=== PATIENT | male | born 1970 | race Caucasian/White ===

== ENCOUNTER 2017-03-05 18:13 | Inpatient (IN) | payer MEDICAID, OTHER ==
[~2017-03-05] VITALS: Ht 170.2 cm; Wt 122.3 kg
[2017-03-05] MEDS ORDERED: CLON0.2T5 PO (20:09)
[2017-03-05] MEDS ORDERED: LABE200T25 PO (20:10)
[2017-03-05] MEDS ORDERED: ZOLP10TA PO (20:10)
[2017-03-05] MEDS ORDERED: ONDANSETRON 4 MG INJ IV STA (20:19)
[2017-03-05] MEDS ORDERED: morphine 2 MG INJ IV STA (20:19)
[2017-03-05] MEDS ORDERED: SOD CHLORIDE 0.9% 1,000 ML IV STA (20:19)
[2017-03-05 20:34] LABS: BASOPHILS % 0.5 % (0.0-2.0); EOSINOPHILS # 0.3 10^3/ul (0.0-0.5); EOSINOPHILS % 3.8 % (0.0-7.0); HEMATOCRIT 36.5 % (42.0-52.0); HEMOGLOBIN 12.8 g/dl (14.0-18.0); LYMPHOCYTES # 1.4 10^3/ul (0.8-2.9); LYMPHOCYTES % 16.4 % (15.0-51.0); MEAN CORPUSCULAR HEMOGLOBIN 31.4 pg (29.0-33.0); MEAN CORPUSCULAR HGB CONC 35.1 g/dl (32.0-37.0); MEAN CORPUSCULAR VOLUME 89.7 fl (82.0-101.0); MEAN PLATELET VOLUME 8.7 fl (7.4-10.4); MONOCYTES % 12.1 % (0.0-11.0); NEUTROPHILS % 66.7 % (39.0-77.0); PLATELET COUNT 382 10^3/UL (140-415); RED BLOOD COUNT 4.07 10^6/ul (4.70-6.10); RED CELL DISTRIBUTION WIDTH 13.2 % (11.5-14.5); WHITE BLOOD COUNT 8.3 10^3/ul (4.8-10.8)
[2017-03-05 20:48] LABS: ADD UMIC YES; UR ASCORBIC ACID 40 mg/dL (NEGATIVE); UR BILIRUBIN (Dip) NEGATIVE (NEGATIVE); UR BLOOD (Dip) 3+ mg/dL (NEGATIVE); UR CLARITY CLOUDY (CLEAR); UR COLOR RED (YELLOW); UR GLUCOSE (Dip) 1+ mg/dL (NEGATIVE); UR KETONES (Dip) NEGATIVE (NEGATIVE); UR LEUKOCYTE ESTERASE (Dip) NEGATIVE Leu/ul (NEGATIVE); UR NITRITE (Dip) NEGATIVE (NEGATIVE); UR RBC > 182 /HPF (0-5); UR SPECIFIC GRAVITY (Dip) 1.018 (1.003-1.030); UR SQUAMOUS EPITHELIAL CELL FEW /HPF (FEW); UR TOTAL PROTEIN (Dip) 3+ mg/dl (NEGATIVE); UR UROBILINOGEN (Dip) NEGATIVE (NEGATIVE)
[2017-03-05] MEDS ORDERED: morphine 4 MG/ML VIAL IV STA (21:08)
[2017-03-05 21:10] LABS: ALBUMIN 4.5 g/dl (3.3-4.9); ALBUMIN/GLOBULIN RATIO 1.55; BILIRUBIN,INDIRECT 0.2 mg/dl (0-1.1); BILIRUBIN,TOTAL 0.2 mg/dl (0.2-1.3); CALCIUM 11.1 mg/dl (8.4-10.2); CREATININE 1.76 mg/dl (0.61-1.24); POTASSIUM 3.4 mmol/L (3.5-5.1); TOTAL PROTEIN 7.4 g/dl (6.1-8.1)
--- NOTE | 2017-03-05 21:20 | RADRPT ---
AMENDMENT: 03/23/2017 10:41:01 PM Candy Jeffrey M.D One or more of the following dose reduction techniques were used: - Automated exposure control. - Adjustment of the mA and/or kV according to patient size. - Use of iterative reconstruction technique. PROCEDURE: CT ABDOMEN AND PELVIS WITHOUT CONTRAST: CLINICAL INDICATION: 48-year of age, male , right flank pain. Rule out stone.. COMPARISON: None TECHNIQUE: CT of the abdomen and pelvis was performed without intravenous contrast. Oral contrast wa s not administered prior to the examination. Coronal and sagittal reformatted images were obtained from the axial source images. Images were revi ewed on a high-resolution PACS workstation. Dose information: Based on a 32 cm phantom, the estimated radiation dose (CTDI vol mGy) for each ser ies in this exam is 24 . The estimated cumulative dose (DLP mGy-cm) is 1520 . FINDINGS: In the absence of intravenous contrast, the study constitutes a limited assessment of the solid orga ns and vessels. LUNG BASES: 0.4 cm right middle lobe pulmonary nodule (3/4). Bilateral dependent atelectasis. ABDOMEN/PELVIS: Liver: Normal. Gallbladder: Normal. Bile ducts: No intrahepatic or extrahepatic biliary duct dilatation. Spleen: Normal. Pancreas: Normal. Adrenal glands: 1.5 cm right adrenal nodule with a noncontrast attenuation coefficient of 11 HU. Le ft adrenal gland is normal. Kidneys and ureters: Negative for urinary calculi or hydronephrosis. Bilateral renal parenchymal hyp odensities that are larger and more numerous on the left cannot be characterized without intravenous contrast but likely represent cysts. Kidneys are normal size. Aorta and IVC: Atherosclerosis aorta and iliac vessels. No aneurysm. Lymph nodes: Normal. Gastrointestinal tract: Normal. Appendix: Non-inflamed appendix right lower quadrant. Bladder: Urinary bladder is partially filled with circumferential wall thickening but without edema in the surrounding fat. Negative for bladder calculi. Pelvic Organs: Coarse calcifications central prostate gland. Seminal vesicles are symmetrical. Peritoneal cavity: No free fluid or free intraperitoneal air. Abdominal wall: 1.8 cm cystic structure immediately deep to the umbilicus within the abdominal cavit y may represent a urachal cyst without complications (3/114). Bilateral gynecomastia. BONES: Musculoskeletal: Mild degenerative changes in spine. Well corticated ossicle overlying left facet in the lower lumbar spine is unrelated to acute trauma. Bone exostosis right iliac wing may be due to remote trauma or could represent a benign osteochondroma (601/95). Degenerative changes No suspiciou s bone lesions. IMPRESSION: Negative for urinary calculi or hydronephrosis. Cause for right flank pain is not evident. Nonspecific bladder wall thickening. This could be due to bladder wall hypertrophy or incomplete di stension. Correlate with urinalysis to rule out cystitis. 1.5 cm nodule right adrenal gland. In the absence of a known primary neoplasm, this is statisticall y benign. Recommend correlation with endocrine studies to evaluate for a functioning adenoma or phe ochromocytoma and consider follow-up adrenal gland CT in 12 months or correlation with previous imag ing. 1.8 cm cystic structure deep to the umbilicus likely represents a urachal cyst without evidence of c omplications. 0.4 cm right pulmonary nodule. In the absence of risk factors, no further imaging is required per 2 017 Fleischner Society guidelines. In a high risk patient, follow-up low-dose chest CT at 12 months is optional. Alternatively, recommend correlation with previous imaging. RPTAT: HCTS Physician Marce Date Time Electronically viewed and signed by Physician Marce on 03/23/2017 22:42 CS/
[2017-03-05 21:21] LABS: TROPONIN-I 0.022 ng/ml (0.00-0.12)
[2017-03-05] MEDS ORDERED: LABETALOL HCL 20MG INJ IV ONE ×2 (21:30→23:30)
[2017-03-05] MEDS ORDERED: CEFTRIAXONE 1 GM/50 ML (PMX) 50 ML IVPB ONE (21:30)
[2017-03-05] MEDS ORDERED: DIPHENHYDRAMINE 50 MG INJ IV ONE (21:30)
[2017-03-05] MEDS ORDERED: ACETAMINOPHEN 325 MG TAB PO PRN (22:30)
[2017-03-05] MEDS ORDERED: ONDANSETRON 4 MG INJ IV PRN (22:30)
[2017-03-05] MEDS ORDERED: FENTAnyl 50 MCG/ML VIAL IV ONE (22:30)
--- NOTE | 2017-03-05 23:00 | ERA ---
ER Documentation Chief Complaint Date/Time DATE: 03/05/17 TIME: 22:52 Chief Complaint pt bib self with c/o right flank pain x few days, sent by urgent care HPI This 46-year-old male comes emergency room with right flank pain for 3 days. Said he was seen in urgent care earlier and was given Toradol which did not help with his pain. Stated he also had some chest pain this morning the center of his chest that did not radiate. Has hematuria as well. No current shortness of breath. Nausea no vomiting. ROS All systems reviewed and are negative except as per history of present illness. Medications Home Meds Reported Medications Zolpidem Tartrate* (Ambien*) 10 Mg Tablet, 10 MG PO QHS Y for INSOMNIA, TAB 03/05/17 Labetalol Hcl* (Labetalol Hcl*) 200 Mg Tablet, 200 MG PO BID, TAB 03/05/17 Clonidine Hcl* (Clonidine Hcl*) 0.2 Mg Tablet, 0.2 MG PO BID, TAB 03/05/17 Allergies Allergies: Coded Allergies: ketorolac (Verified Allergy, Mild, 03/05/17) lisinopril (Verified Allergy, Mild, 03/05/17) spironolactone (Verified Allergy, Mild, 03/05/17) hydrochlorothiazide (Unverified Allergy, Unknown, 03/05/17) PMhx/Soc Medical and Surgical Hx: pt denies Surgical Hx Hx Miscellaneous Medical Probl: Yes (HTN) Hx Alcohol Use: No Hx Substance Use: No Hx Tobacco Use: No Smoking Status: Never smoker Physical Exam Vitals Vital Signs Date Time Temp Pulse Resp B/P Pulse Ox O2 Delivery O2 Flow Rate FiO2 03/05/17 18:27 98.3 101 20 192/127 98 Physical Exam Const: [] Mild distress Head: Atraumatic Eyes: Normal Conjunctiva ENT: Normal External Ears, Nose and Mouth. Neck: Full range of motion..~ No meningismus. Resp: Clear to auscultation bilaterally Cardio: Regular rate and rhythm, no murmurs Abd: Soft, mild right-sided abdominal tenderness,, non distended. Normal bowel sounds Skin: No petechiae or rashes Back: No midline or flank tenderness Ext: No cyanosis, or edema Neur: Awake and alert and oriented 3, no focal deficits Psych: Normal Mood and Affect Result Diagram: 03/05/17201903/05/172019 Results 24 hrs Laboratory Tests Test 03/05/17 20:20 White Blood Count 8.310^3/ul Red Blood Count 4.0710^6/ul Hemoglobin 12.8g/dl Hematocrit 36.5% Mean Corpuscular Volume 89.7fl Mean Corpuscular Hemoglobin 31.4pg Mean Corpuscular Hemoglobin Concent 35.1g/dl Red Cell Distribution Width 13.2% Platelet Count 23050^3/UL Mean Platelet Volume 8.7fl Neutrophils % 66.7% Lymphocytes % 16.4% Monocytes % 12.1% Eosinophils % 3.8% Basophils % 0.5% Nucleated Red Blood Cells % 0.0/100WBC Neutrophils # (Manual) 5.510^3/ul Lymphocytes # 1.410^3/ul Monocytes # 1.010^3/ul Eosinophils # 0.310^3/ul Basophils # 0.010^3/ul Nucleated Red Blood Cells # 0.010^3/ul Urine Color RED Urine Clarity CLOUDY Urine pH 7.0 Urine Specific Max 1.018 Urine Ketones NEGATIVEmg/dL Urine Nitrite NEGATIVEmg/dL Urine Bilirubin NEGATIVEmg/dL Urine Urobilinogen NEGATIVEmg/dL Urine Leukocyte Esterase NEGATIVELeu/ul Urine Microscopic RBC > 182/HPF Urine Microscopic WBC 11/HPF Urine Squamous Epithelial Cells FEW/HPF Urine Hemoglobin 3+mg/dL Urine Glucose 1+mg/dL Urine Total Protein 3+mg/dl Sodium Level 142mmol/L Potassium Level 3.4mmol/L Chloride Level 102mmol/L Carbon Dioxide Level 29mmol/L Anion Gap 14 Blood Urea Nitrogen 21mg/dl Creatinine 1.76mg/dl Glucose Level 128mg/dl Calcium Level 11.1mg/dl Total Bilirubin 0.2mg/dl Direct Bilirubin 0.00mg/dl Indirect Bilirubin 0.2mg/dl Aspartate Amino Transf (AST/SGOT) 25IU/L Alanine Aminotransferase (ALT/SGPT) 35IU/L Alkaline Phosphatase 118IU/L Troponin I 0.022ng/ml Total Protein 7.4g/dl Albumin 4.5g/dl Globulin 2.90g/dl Albumin/Globulin Ratio 1.55 Lipase 107U/L Current Medications Medications (Trade) Dose Ordered Sig/[place] Route PRN Reason Start Time Stop Time Status Last Admin Dose Admin Sodium Chloride (NS) 1,000 ml @ 1,000 mls/hr Q1H STAT IV 03/05/17 20:19 03/05/17 21:18 DC 03/05/17 20:26 Morphine Sulfate (morphine) 2 mg ONCE STAT IV 03/05/17 20:19 03/05/17 20:21 DC 03/05/17 20:26 Ondansetron HCl (Zofran Inj) 4 mg ONCE STAT IV 03/05/17 20:19 03/05/17 20:21 DC 03/05/17 20:25 Morphine Sulfate (morphine) 4 mg ONCE STAT IV 03/05/17 21:08 03/05/17 21:09 DC 03/05/17 21:30 Labetalol HCl 20 mg 20 mg ONCE ONCE IV 03/05/17 21:30 03/05/17 21:31 DC 03/05/17 21:29 Ceftriaxone Sodium (Rocephin) 50 ml @ 100 mls/hr ONCE ONCE IVPB 03/05/17 21:30 03/05/17 21:59 DC 03/05/17 21:37 Diphenhydramine HCl (Benadryl) 12.5 mg ONCE ONCE IV 03/05/17 21:30 03/05/17 21:31 DC 03/05/17 21:37 Fentanyl (Sublimaze) 50 mcg ONCE ONCE IV 03/05/17 22:30 03/05/17 22:31 DC 03/05/17 22:20 Ondansetron HCl (Zofran Inj) 4 mg BRIDGE ORDER PRN IV NAUSEA AND/OR VOMITING 03/05/17 22:30 03/06/17 22:29 Acetaminophen (Tylenol Tab) 650 mg ER BRIDGE PRN PO MILD PAIN/FEVER 03/05/17 22:30 03/06/17 22:29 Procedures/MDM Chest pain with hypertensive crisis and UTI with BECKY. No signs of cardiac ischemia. Patient was given normal saline as well as Rocephin IV. Was given morphine for pain, then fentanyl. Patient initially exhibited some features of drug-seeking behavior including being allergic to Toradol as well as already having received Toradol and it did not work. Does have significant stranding around the bladder hematuria likely UTI and pyelonephritis. Was given labetalol for his extreme hypertension which did help with this. Chest pain subsided with blood pressure control. Possible his renal insufficiency is secondary to his uncontrolled hypertension. Urine cultures obtained. I spoke with Dr. Del Cid who will be admitting the patient to telemetry for further monitoring of his blood pressure. CT abdomen pelvis interpretation: Bladder wall inflammation without any signs of bowel obstruction, no free air perforation, no fractures. EKG interpretation: Normal sinus rhythm rate of 96, normal axis, no ST or T- wave changes concerning for acute ischemia, artifact on EKG. Normal intervals. court monitor interpretation: Normal sinus rhythm without arrhythmia. Critical care time 41 minutes: This includes time spent managing severe hypertension in the face of chest pain, treatment of unstable vital signs, use of vasoactive medication labetalol, multiple visits patient's bedside to reassess cardio dynamic status, chart review, discussion with patient and admitting doctor. This does not include any billable procedures. Departure Diagnosis: Primary Impression: Hypertensive crisis Additional Impressions: Chest pain Pyelonephritis Renal insufficiency Condition: Serious LALO VARGHESE DO Mar 05, 2017 23:00
[2017-03-05] MEDS ORDERED: HYDROmorphONE 2 MG/ML SYG IV STA (23:51)
[2017-03-06] VITALS (13 sets, daily range): BP systolic 139–160; BP diastolic 85–119; PULSE 77–91; RESP 18–22; TEMP 98.3; Ht 170.2 cm; Wt 122.3 kg
[2017-03-06] MEDS ORDERED: hydrALAzine 20 MG INJ IV ONE (01:30)
[2017-03-06] MEDS ORDERED: HYDROCODONE/APAP (5/325) TAB PO PRN (01:30)
[2017-03-06] MEDS ORDERED: hydrALAzine 20 MG INJ IV PRN (01:30)
[2017-03-06] MEDS: morphine 4 MG/ML VIAL IV PRN ×5 (01:31→19:49)
[2017-03-06] MEDS: DIPHENHYDRAMINE 25 MG CAP PO PRN (01:31)
[2017-03-06] MEDS: ZOLPIDEM 5 MG TAB PO PRN (02:53)
[2017-03-06] MEDS ORDERED: HYDROmorphONE 1 MG/ML SYG IV STA (02:56)
--- NOTE | 2017-03-06 06:56 | HP ---
Date/Time of Note Date/Time of Note DATE: 03/06/17 TIME: 06:47 Assessment/Plan VTE Prophylaxis VTE Prophylaxis Intervention: SCD's Lines/Catheters IV [facility]ter [facility] (from [facility]): Saline Lock Urinary Cath still in place: No Assessment/Plan Assessment/Plan 1 right-sided Pyelonephritis -IV antibiotics -IV fluid -Follow-up culture results -Pain management 2. Gross hematuria -Most likely secondary to cystitis -We will treat infection first and if it persists, will place a urology consult 3. Hypertensive urgency -Continue home medications with adjustment as needed for better BP control 4. Presumed TEMI versus CKD from hypertensive nephrosclerosis -will treat with IV fluid for now -Renal ultrasound and nephrology consult 5. Mild hypokalemia -Replete as needed HPI/ROS Admit Date/Time Admit Date/Time Mar 05, 2017 at 22:27 Hx of Present Illness Urinalysis This is a 46-year-old male with a history of hypertension who presented to the emergency department for right flank pain and elevated blood pressure. He said he has been having right flank pain and hematuria for the past 2 days for which he went to urgent care. His blood pressure was noted to be elevated and as such she was instructed to go to the ER. He denied fever, chills, nausea, vomiting. He also denied a history of kidney stone. When he presented to the ER initial blood pressure was 192/105 but has been as high as 212/138. Labs shows a creatinine of 1.76, potassium 3.4, hemoglobin 12.8. Is consistent with UTI and also was significant amount of RBCs. CT abdomen/pelvis shows no kidney or ureteral stone. No hydro-nephrosis. Noted however was 1.5 cm right adrenal nodule and 0.4 cm right pulmonary nodule. . PMH/Family/Social Past Medical History Medical History: hypertension Social History Alcohol Use: occasionally Smoking Status: Never smoker Drug Use: none Exam/Review of Systems Vital Signs Vitals Vital Signs Date Time Temp Pulse Resp B/P Pulse Ox O2 Delivery O2 Flow Rate FiO2 03/06/17 04:12 91 03/06/17 04:05 97.7 22 160/85 93 03/06/17 00:23 Room Air Exam Constitutional: alert, oriented Head: atraumatic, normocephalic Eyes: EOMI, PERRL Neck: supple Respiratory: clear to auscultation, normal air movement Cardiovascular: nl pulses, regular rate and rhythm Gastrointestinal: other (Right flank tenderness), soft, tender Extremities: normal pulses Labs Result Diagram: 03/05/17201903/05/172019 Medications Medications Current Medications Heparin Sodium (Porcine) (Heparin (5000 Units/0.5 ml)) 5,000 unit BID SC ; Start 03/06/17 at 09:00 Morphine Sulfate (morphine) 4 mg Q4H PRN IV PAIN Last administered on 01:31; Admin Dose 4 MG; Start 03/06/17 at 01:30 Acetaminophen/ Hydrocodone Bitart ([place] (5/325)) 1 tab Q4H PRN PO PAIN Last administered on 03/06/17 02:44; Admin Dose 1 TAB; Start 03/06/17 at 01:30 Ondansetron HCl (Zofran Inj) 4 mg Q6H PRN IV NAUSEA AND/OR VOMITING; Start at 01:30 Diphenhydramine HCl (Benadryl) 25 mg Q6H PRN PO ITCHING Last administered on 01:31; Admin Dose 25 MG; Start 03/06/17 at 01:30 Hydralazine HCl (Apresoline) 10 mg Q4H PRN IV SBP>160; Start 03/06/17 at 01:30 Clonidine (Catapres) 0.2 mg BID PO ; Start 03/06/17 at 09:00 Labetalol HCl (Normodyne) 200 mg BID PO ; Start 03/06/17 at 09:00 NIRMALA HERNANDEZ MD Mar 06, 2017 06:56
[2017-03-06 06:57] LABS: BASOPHILS % 0.3 % (0.0-2.0); EOSINOPHILS # 0.4 10^3/ul (0.0-0.5); EOSINOPHILS % 4.9 % (0.0-7.0); HEMATOCRIT 34.7 % (42.0-52.0); HEMOGLOBIN 11.8 g/dl (14.0-18.0); LYMPHOCYTES # 1.6 10^3/ul (0.8-2.9); LYMPHOCYTES % 17.7 % (15.0-51.0); MEAN CORPUSCULAR HEMOGLOBIN 31.4 pg (29.0-33.0); MEAN CORPUSCULAR VOLUME 92.3 fl (82.0-101.0); MEAN PLATELET VOLUME 8.6 fl (7.4-10.4); MONOCYTE # 1.3 10^3/ul (0.3-0.9); MONOCYTES % 14.3 % (0.0-11.0); NEUTROPHILS % 62.2 % (39.0-77.0); NUCLEATED RED BLOOD CELLS% 0.2 /100WBC (0.0-0.0); PLATELET COUNT 352 10^3/UL (140-415); RED BLOOD COUNT 3.76 10^6/ul (4.70-6.10); RED CELL DISTRIBUTION WIDTH 13.3 % (11.5-14.5); WHITE BLOOD COUNT 8.8 10^3/ul (4.8-10.8)
[2017-03-06 07:14] LABS: ALBUMIN 3.9 g/dl (3.3-4.9); ALBUMIN/GLOBULIN RATIO 1.44; BILIRUBIN,INDIRECT 0.1 mg/dl (0-1.1); BILIRUBIN,TOTAL 0.1 mg/dl (0.2-1.3); CALCIUM 10.2 mg/dl (8.4-10.2); CREATININE 1.93 mg/dl (0.61-1.24); MAGNESIUM 1.8 mg/dl (1.7-2.5); PHOSPHORUS 6.1 mg/dl (2.5-4.9); POTASSIUM 3.3 mmol/L (3.5-5.1); TOTAL PROTEIN 6.6 g/dl (6.1-8.1)
[2017-03-06] MEDS ORDERED: VANCOMYCIN IV PER PHARMACY XX SCH (07:30)
[2017-03-06] MEDS: ONDANSETRON 4 MG INJ IV PRN (08:27)
[2017-03-06] MEDS: CEFEPIME 1GM/50 ML (PMX) 50 ML IVPB SCH ×2 (08:28→20:55)
[2017-03-06] MEDS: LABETALOL 200 MG TAB PO SCH ×2 (08:28→20:56)
[2017-03-06] MEDS ORDERED: HYDROmorphONE 1 MG/ML SYG IV PRN (09:00)
[2017-03-06] MEDS ORDERED: HEPARIN 5,000 UNIT/0.5 ML VIAL SC SCH (09:00)
[2017-03-06] MEDS ORDERED: POTASSIUM CHLORIDE (SR) 20 MEQ TAB PO STA (09:15)
[2017-03-06] MEDS: SOD CHLORIDE 0.9% 1,000 ML IV SCH ×3 (09:45→23:39)
[2017-03-06] MEDS ORDERED: VANCOMYCIN 2 GM in SOD CHLORIDE 0.9% 500 ML IVPB SCH (10:00)
--- NOTE | 2017-03-06 11:04 | PN ---
Date/Time of Note Date/Time of Note DATE: 03/06/17 TIME: 10:59 Assessment/Plan VTE Prophylaxis VTE Prophylaxis Intervention: SCD's Lines/Catheters [facility] Saline Lock Urinary Cath still in place: No Assessment/Plan Chief Complaint/Hosp Course Assessment/Plan: 46-year-old male visiting from [place], who presents with: 1 right-sided Pyelonephritis: Questionable, not prominent on the CT abdomen pelvis findings. Patient does have right lower quadrant pain however. -For now continue IV antibiotics -Continue IV fluid -Follow-up culture results -Pain management consult as well 2. Gross hematuria: 3+ hemoglobin found on UA. -Most likely secondary to cystitis -Treat infection first and if it persists, will place a urology consult 3. Hypertensive urgency -improved now. Patient states he is compliant with his p.o. blood pressure medicines at home. -Continue home medications with adjustment as needed for better BP control 4. Presumed TEMI versus CKD from hypertensive nephrosclerosis -will treat with IV fluid for now -Renal ultrasound and nephrology consult 5. Mild hypokalemia -Replete as needed 6. Adrenal nodule: Unclear if this is incidentaloma, versus possible pheochromocytoma? Given his elevated blood pressure -We will start with the urine metanephrine test. Problems: Subjective 24 Hr Interval Summary Free Text/Dictation Patient still complaining of right lower quadrant pain. Still waiting to be seen by pain management team. Otherwise no acute events overnight. Denies any recent strenuous exercise. Exam/Review of Systems Vital Signs Vitals Vital Signs Date Time Temp Pulse Resp B/P Pulse Ox O2 Delivery O2 Flow Rate FiO2 03/06/17 08:22 80 03/06/17 06:55 98.1 18 149/90 96 03/06/17 00:23 Room Air Intake and Output 03/05/17 03/05/17 03/06/17 15:00 23:00 07:00 Intake Total 840 ml Balance 840 ml Exam Constitutional: alert, oriented, in mild distress Head: atraumatic, normocephalic Eyes: EOMI, PERRL Neck: supple Respiratory: clear to auscultation, normal air movement Cardiovascular: nl pulses, regular rate and rhythm Gastrointestinal: other (Right flank tenderness), soft, tender Extremities: normal pulses Results Result Diagram: 03/06/17 0609 03/06/17 0609 Results 24 hrs Laboratory Tests Test 03/05/17 20:20 03/06/17 06:09 White Blood Count 8.3 8.8 Red Blood Count 4.07 L 3.76 L Hemoglobin 12.8 L 11.8 L Hematocrit 36.5 L 34.7 L Mean Corpuscular Volume 89.7 92.3 Mean Corpuscular Hemoglobin 31.4 31.4 Mean Corpuscular Hemoglobin Concent 35.1 34.0 Red Cell Distribution Width 13.2 13.3 Platelet Count 382 352 Mean Platelet Volume 8.7 8.6 Neutrophils % 66.7 62.2 Lymphocytes % 16.4 17.7 Monocytes % 12.1 H 14.3 H Eosinophils % 3.8 4.9 Basophils % 0.5 0.3 Nucleated Red Blood Cells % 0.0 0.2 H Neutrophils # (Manual) 5.5 5.5 Lymphocytes # 1.4 1.6 Monocytes # 1.0 H 1.3 H Eosinophils # 0.3 0.4 Basophils # 0.0 0.0 Nucleated Red Blood Cells # 0.0 0.0 Urine Color RED Urine Clarity CLOUDY A Urine pH 7.0 Urine Specific [place] 1.018 Urine Ketones NEGATIVE Urine Nitrite NEGATIVE Urine Bilirubin NEGATIVE Urine Urobilinogen NEGATIVE Urine Leukocyte Esterase NEGATIVE Urine Microscopic RBC > 182 H Urine Microscopic WBC 11 H Urine Squamous Epithelial Cells FEW Urine Hemoglobin 3+ H Urine Glucose 1+ H Urine Total Protein 3+ H Sodium Level 142 138 Potassium Level 3.4 L 3.3 L Chloride Level 102 95 L Carbon Dioxide Level 29 28 Anion Gap 14 18 H Blood Urea Nitrogen 21 H 27 H Creatinine 1.76 H 1.93 H Glucose Level 128 204 Calcium Level 11.1 H 10.2 Total Bilirubin 0.2 0.1 L Direct Bilirubin 0.00 0.00 Indirect Bilirubin 0.2 0.1 Aspartate Amino Transf (AST/SGOT) 25 21 Alanine Aminotransferase (ALT/SGPT) 35 41 Alkaline Phosphatase 118 92 Troponin I 0.022 Total Protein 7.4 6.6 Albumin 4.5 3.9 Globulin 2.90 2.70 Albumin/Globulin Ratio 1.55 1.44 Lipase 107 Phosphorus Level 6.1 H Magnesium Level 1.8 Medications Medications Current Medications Heparin Sodium (Porcine) (Heparin (5000 Units/0.5 ml)) 5,000 unit BID SC Last administered on 8/16/17at 09:01; Admin Dose 5,000 UNIT; Start 03/06/17 at 09:00 Morphine Sulfate (morphine) 4 mg Q4H PRN IV PAIN Last administered on 08:27; Admin Dose 4 MG; Start 03/06/17 at 01:30 Acetaminophen/ Hydrocodone Bitart ([place] (5/325)) 1 tab Q4H PRN PO PAIN Last administered on 03/06/17 02:44; Admin Dose 1 TAB; Start 03/06/17 at 01:30 Ondansetron HCl (Zofran Inj) 4 mg Q6H PRN IV NAUSEA AND/OR VOMITING Last administered on 03/06/17 08:27; Admin Dose 4 MG; Start 03/06/17 at 01:30 Diphenhydramine HCl (Benadryl) 25 mg Q6H PRN PO ITCHING Last administered on 01:31; Admin Dose 25 MG; Start 03/06/17 at 01:30 Hydralazine HCl (Apresoline) 10 mg Q4H PRN IV SBP>160; Start 03/06/17 at 01:30 Clonidine (Catapres) 0.2 mg BID PO Last administered on 03/06/17 08:28; Admin Dose 0.2 MG; Start 03/06/17 at 09:00 Labetalol HCl 200 mg 200 mg BID PO Last administered on 03/06/17 08:28; Admin Dose 200 MG; Start 03/06/17 at 09:00 Cefepime HCl 50 ml @ 100 mls/hr Q12 IVPB Last administered on 03/06/17 08:28 ; Admin Dose 100 MLS/HR; Start 03/06/17 at 09:00 Vancomycin HCl/ Sodium Chloride (Vancocin/NS) 500 ml @ 125 mls/hr ONCE IVPB ; Start 03/06/17 at 10:00; Stop 03/06/17 at 13:59 Hydromorphone HCl 1 mg 1 mg Q4H PRN IV PAIN Last administered on 03/06/17 09: 44; Admin Dose 1 MG; Start 03/06/17 at 09:00; Status Future Hold Sodium Chloride (NS) 1,000 ml @ 125 mls/hr Q8H IV Last administered on 8/16/ 17at 09:45; Admin Dose 100 MLS/HR; Start 03/06/17 at 09:30 Baclofen (Lioresal) 10 mg TID PO ; Start 03/06/17 at 11:30 HAZEL ALONZO Mar 06, 2017 11:04
[2017-03-06] MEDS: BACLOFEN 10 MG TAB PO SCH ×2 (11:12→20:55)
--- NOTE | 2017-03-06 13:06 | CONS ---
Date/Time of Note Date/Time of Note DATE: 03/06/17 TIME: 13:05 Assessment/Plan Assessment/Plan Additional Assessment/Plan 46 M with PMHx of HTN, Morbid obesity, no family h/o Renal disease, presented with acute kidney injury, he has significant proteinuria with 3 + on Urine analysis, Hematurait with 3+ blood and More than 120 RBC. he has 11 WBC, negative nitrite and negative LE on UA.. his BP was elevated more than 200. renal has been consulted for 1. Acute kidney injury with bravo hematuria- Differential includes ATN vs Acute pre renal azotemia vs Acute Glomerulonephritis vs Hypertnsive nephrosclerosis 2. Hyperrensive emergency 3. Hematuria,Bravo 4. h/o HTN 5. Morbid obesity 6. Possible UTI/Pyelonephrits Plan: Pt has been on IV abx for cystitis/pyelonephritis but he has less convincing evidence of UTI. No urine culture has been sent. His admission Cr 1.76 with Ca 11. He has 3 + protein and More than 120 RBC on UA without any significant evidnece of uTI- his differential diagnosis for [place] includes ATN vs Acute pre renal azotemia vs Acute Glomerulonephritis vs Hypertnsive nephrosclerosis No previous Cr available, pt denies any PMHx of CKD. no NSAID use, no Family h/ o renal disease IV abx for UTI- renally dose abx BP control, goal BP<140/80- amlodipine 10mg pO QHS has been added, IV hydralazine prn Renal US I will order work up including Uprot/cr ratio, Urine Na, Urine eosinophils, CK total, Uric acid TAYLOR< ANCA, ESR< CRP, Rheumatoid factor, 24 hr urine collection for protein Thanks for consultation, we will continue to follow up Total time spent in consulation is more than 60 minutes. Consultation Date/Type/Reason Admit Date/Time Mar 05, 2017 at 22:27 Date of Consultation: Mar 06, 2017 Type of Consultation: Nephrology Reason for Consultation acute kidney injury, hematuria Referring Provider: HAZEL ALONZO of Present Illness 46-year-old male with a history of hypertension who presented to the emergency department for right flank pain and elevated blood pressure. He said he has been having right flank pain and hematuria for the past 2 days for which he went to urgent care. His blood pressure was noted to be elevated and as such she was instructed to go to the ER. He denied fever, chills, nausea, vomiting. He also denied a history of kidney stone. When he presented to the ER initial blood pressure was 192/105 but has been as high as 212/138. Labs shows a creatinine of 1.76, potassium 3.4, hemoglobin 12.8. Is consistent with UTI and also was significant amount of RBCs. CT abdomen/pelvis shows no kidney or ureteral stone. No hydro-nephrosis. Noted however was 1.5 cm right adrenal nodule and 0.4 cm right pulmonary nodule. blood inurine, back pain, other ROS negative Constitutional: no complaints Eyes: no complaints ENT: no complaints Respiratory: no complaints Cardiovascular: no complaints Gastrointestinal: constipation, pain Genitourinary: bleeding, flank pain Musculoskeletal: back pain, neck pain, no complaints Skin: no complaints Neurologic: no complaints Endocrine: no complaints Lymphatic: no complaints Psychological: no complaints Immunologic: no complaints Past Medical History Medical History: hypertension Past Surgical History Past Surgical Hx: no surgical history Family History Significant Family History: no pertinent family hx Social History Alcohol Use: occasionally Smoking Status: Never smoker Drug Use: none Exam/Review of Systems Vital Signs Vitals Vital Signs Date Time Temp Pulse Resp B/P Pulse Ox O2 Delivery O2 Flow Rate FiO2 03/06/17 12:25 85 03/06/17 12:04 139/93 03/06/17 11:20 97.9 18 94 03/06/17 00:23 Room Air Intake and Output 03/05/17 03/05/17 03/06/17 15:00 23:00 07:00 Intake Total 840 ml Balance 840 ml Exam Constitutional: alert, oriented Head: atraumatic, normocephalic Eyes: EOMI, PERRL Neck: supple Respiratory: clear to auscultation, normal air movement Cardiovascular: nl pulses, regular rate and rhythm Gastrointestinal: other (Right flank tenderness), soft, tender Extremities: normal pulses Constitutional: alert Psych: no complaints Results Result Diagram: 03/06/17 0609 03/06/17 0609 Results 24 hrs Laboratory Tests Test 03/05/17 20:20 03/06/17 06:09 03/06/17 11:43 White Blood Count 8.3 8.8 Red Blood Count 4.07 L 3.76 L Hemoglobin 12.8 L 11.8 L Hematocrit 36.5 L 34.7 L Mean Corpuscular Volume 89.7 92.3 Mean Corpuscular Hemoglobin 31.4 31.4 Mean Corpuscular Hemoglobin Concent 35.1 34.0 Red Cell Distribution Width 13.2 13.3 Platelet Count 382 352 Mean Platelet Volume 8.7 8.6 Neutrophils % 66.7 62.2 Lymphocytes % 16.4 17.7 Monocytes % 12.1 H 14.3 H Eosinophils % 3.8 4.9 Basophils % 0.5 0.3 Nucleated Red Blood Cells % 0.0 0.2 H Neutrophils # (Manual) 5.5 5.5 Lymphocytes # 1.4 1.6 Monocytes # 1.0 H 1.3 H Eosinophils # 0.3 0.4 Basophils # 0.0 0.0 Nucleated Red Blood Cells # 0.0 0.0 Urine Color RED Urine Clarity CLOUDY A Urine pH 7.0 Urine Specific [place] 1.018 Urine Ketones NEGATIVE Urine Nitrite NEGATIVE Urine Bilirubin NEGATIVE Urine Urobilinogen NEGATIVE Urine Leukocyte Esterase NEGATIVE Urine Microscopic RBC > 182 H Urine Microscopic WBC 11 H Urine Squamous Epithelial Cells FEW Urine Hemoglobin 3+ H Urine Glucose 1+ H Urine Total Protein 3+ H Sodium Level 142 138 Potassium Level 3.4 L 3.3 L Chloride Level 102 95 L Carbon Dioxide Level 29 28 Anion Gap 14 18 H Blood Urea Nitrogen 21 H 27 H Creatinine 1.76 H 1.93 H Glucose Level 128 204 Calcium Level 11.1 H 10.2 Total Bilirubin 0.2 0.1 L Direct Bilirubin 0.00 0.00 Indirect Bilirubin 0.2 0.1 Aspartate Amino Transf (AST/SGOT) 25 21 Alanine Aminotransferase (ALT/SGPT) 35 41 Alkaline Phosphatase 118 92 Troponin I 0.022 Total Protein 7.4 6.6 Albumin 4.5 3.9 Globulin 2.90 2.70 Albumin/Globulin Ratio 1.55 1.44 Lipase 107 Phosphorus Level 6.1 H Magnesium Level 1.8 Creatine Kinase 228 H Medications Medications Current Medications Morphine Sulfate (morphine) 4 mg Q4H PRN IV PAIN Last administered on 12:41; Admin Dose 4 MG; Start 03/06/17 at 01:30 Acetaminophen/ Hydrocodone Bitart ([place] (5/325)) 1 tab Q4H PRN PO PAIN Last administered on 03/06/17 02:44; Admin Dose 1 TAB; Start 03/06/17 at 01:30 Ondansetron HCl (Zofran Inj) 4 mg Q6H PRN IV NAUSEA AND/OR VOMITING Last administered on 03/06/17 08:27; Admin Dose 4 MG; Start 03/06/17 at 01:30 Diphenhydramine HCl (Benadryl) 25 mg Q6H PRN PO ITCHING Last administered on 01:31; Admin Dose 25 MG; Start 03/06/17 at 01:30 Hydralazine HCl (Apresoline) 10 mg Q4H PRN IV SBP>160; Start 03/06/17 at 01:30 Clonidine (Catapres) 0.2 mg BID PO Last administered on 03/06/17 08:28; Admin Dose 0.2 MG; Start 03/06/17 at 09:00 Labetalol HCl 200 mg 200 mg BID PO Last administered on 03/06/17 08:28; Admin Dose 200 MG; Start 03/06/17 at 09:00 Cefepime HCl 50 ml @ 100 mls/hr Q12 IVPB Last administered on 03/06/17 08:28 ; Admin Dose 100 MLS/HR; Start 03/06/17 at 09:00 Vancomycin HCl/ Sodium Chloride (Vancocin/NS) 500 ml @ 125 mls/hr ONCE IVPB Last administered on 03/06/17 11:08; Admin Dose 125 MLS/HR; Start 03/06/17 at 10:00; Stop 03/06/17 at 13:59 Hydromorphone HCl 1 mg 1 mg Q4H PRN IV PAIN Last administered on 03/06/17 09: 44; Admin Dose 1 MG; Start 03/06/17 at 09:00; Status Future Hold Sodium Chloride (NS) 1,000 ml @ 125 mls/hr Q8H IV Last administered on 11:07; Admin Dose 125 MLS/HR; Start 03/06/17 at 09:30 Baclofen 10 mg 10 mg TID PO Last administered on 03/06/17 11:12; Admin Dose 10 MG; Start 03/06/17 at 11:30 Vancomycin HCl/ Sodium Chloride (Vancocin/NS) 250 ml @ 83.333 mls/ hr Q12H IVPB ; Start 03/06/17 at 16:00 COLIN PAREDES MD Mar 06, 2017 13:06
[2017-03-06 14:06] LABS: BARBITURATES Negative (NEGATIVE); BENZODIAZEPINES Negative (NEGATIVE); CANNABINOIDS Negative (NEGATIVE); COCAINE Negative (NEGATIVE)
[2017-03-06 14:12] LABS: OPIATES Positive (NEGATIVE)
--- NOTE | 2017-03-06 14:49 | RADRPT ---
PROCEDURE: US Renal CLINICAL INDICATION: Acute renal failure, flank pain, hematuria. TECHNIQUE: Multiple sonographic images of the kidneys and bladder were obtained. Evaluation of th e kidneys and bladder was performed as well with juárez scale and color and Doppler evaluation using a curved array transducer. The images were reviewed on a high-resolution PACS workstation. COMPARISON: CT abdomen pelvis from 03/05/2017. FINDINGS: The right kidney measures 12.0 cm. The left kidney measures 11.8 cm. There is normal echogenicity within the parenchyma of the kidneys bilaterally. There are small left-sided renal cysts. The largest measures 2.3 cm in diameter. No perinephric fluid collection is seen. Urinary bladder is remarkable for mild diffuse bladder wall thickening. a 66 cc postvoid residual. IMPRESSION: 1. Left-sided renal cysts. 2. Mild diffuse bladder wall thickening. This could be secondary to cystitis. 3. 66 cc postvoid residual. RPTAT: [facility] Physician Tiesha Date Time Electronically viewed and signed by Physician Tiesha on 03/06/2017 14:48 QING/
[2017-03-06] MEDS: VANCOMYCIN 1.25 GM in SOD CHLORIDE 0.9% 250 ML IVPB SCH (16:05)
[2017-03-06] MEDS: HYDROmorphONE 1 MG/ML SYG IV PRN ×2 (17:36→23:39)
[2017-03-06 18:38] LABS: PROTEIN/CREAT RATIO 0.76 RATIO
[2017-03-06] MEDS: AMLODIPINE 10 MG TAB PO SCH (20:56)
[2017-03-07] VITALS (12 sets, daily range): BP systolic 143–176; BP diastolic 80–99; PULSE 68–82; RESP 18–22
[2017-03-07] MEDS: VANCOMYCIN 1.25 GM in SOD CHLORIDE 0.9% 250 ML IVPB SCH (04:08)
[2017-03-07] MEDS: HYDROmorphONE 1 MG/ML SYG IV PRN ×2 (04:09→08:23)
[2017-03-07] MEDS: morphine 4 MG/ML VIAL IV PRN ×2 (06:26→10:35)
[2017-03-07 07:22] LABS: HAAIG REFLEX REFLEX FILED
[2017-03-07 07:30] LABS: BASOPHILS % 0.3 % (0.0-2.0); EOSINOPHILS # 0.5 10^3/ul (0.0-0.5); EOSINOPHILS % 6.8 % (0.0-7.0); HEMATOCRIT 33.3 % (42.0-52.0); LYMPHOCYTES # 0.7 10^3/ul (0.8-2.9); LYMPHOCYTES % 9.5 % (15.0-51.0); MEAN CORPUSCULAR HEMOGLOBIN 31.2 pg (29.0-33.0); MEAN CORPUSCULAR VOLUME 94.3 fl (82.0-101.0); MEAN PLATELET VOLUME 8.5 fl (7.4-10.4); MONOCYTE # 0.8 10^3/ul (0.3-0.9); MONOCYTES % 11.4 % (0.0-11.0); NEUTROPHILS % 71.3 % (39.0-77.0); PLATELET COUNT 327 10^3/UL (140-415); RED BLOOD COUNT 3.53 10^6/ul (4.70-6.10); RED CELL DISTRIBUTION WIDTH 13.5 % (11.5-14.5); WHITE BLOOD COUNT 7.1 10^3/ul (4.8-10.8)
[2017-03-07 07:52] LABS: URIC ACID 5.7 mg/dl (3.1-7.9)
[2017-03-07] MEDS: CEFEPIME 1GM/50 ML (PMX) 50 ML IVPB SCH (08:23)
[2017-03-07] MEDS: LABETALOL 200 MG TAB PO SCH ×2 (08:23→20:07)
[2017-03-07] MEDS: BACLOFEN 10 MG TAB PO SCH ×3 (08:23→20:07)
[2017-03-07 08:39] LABS: HEPATITIS B CORE ANTIBODY NEGATIVE (NEGATIVE)
[2017-03-07 08:56] LABS: CALCIUM 9.9 mg/dl (8.4-10.2); CREATININE 1.74 mg/dl (0.61-1.24); MAGNESIUM 1.8 mg/dl (1.7-2.5); PHOSPHORUS 5.3 mg/dl (2.5-4.9); POTASSIUM 3.7 mmol/L (3.5-5.1)
[2017-03-07 09:13] LABS: C-REACTIVE PROTEIN 1.7 mg/dl (0.0-0.9)
--- NOTE | 2017-03-07 11:25 | PN ---
Date/Time of Note Date/Time of Note DATE: 03/07/17 TIME: 10:56 Assessment/Plan VTE Prophylaxis VTE Prophylaxis Intervention: SCD's Lines/Catheters IV [facility]ter Type (from [facility]): Peripheral IV Urinary Cath still in place: No Assessment/Plan Chief Complaint/Hosp Course Assessment/Plan: 46-year-old male visiting from [place], who presents with: 1 right-sided flank pain with proteinuria: Still with some right lower quadrant pain. Appreciate renal consult. -Continue IV fluid, follow-up 24-hour urine protein test, renal recommendations -Follow-up culture results -Pain management consult as well (pending) 2. Gross hematuria: 3+ hemoglobin found on UA. Unclear source, again could be glomerulonephritis versus ATN versus prerenal azotemia? There was some bladder thickening found on CT scan as well --Monitor for now, have requested urology consult. Concern about possible need to rule out bladder cancer. I spoke with urology team mobile home set up person today, they will look at the CT scan of abdomen and pelvis, but recommend patient following up as outpatient in [place]. From my perspective it would be preferable if they at least came in and saw the patient while he is here as an inpatient for further urologic evaluation. But for now they are recommending patient follow- up as outpatient. 3. Hypertensive urgency -improved now. Patient states he is compliant with his p.o. blood pressure medicines at home. -Continue home medications, add a calcium channel david yesterday as well 4. Adrenal nodule: Unclear if this is incidentaloma, versus possible pheochromocytoma? Given his elevated blood pressure -Follow-up results of urine metanephrine test (still pending). Problems: Subjective 24 Hr Interval Summary Free Text/Dictation Patient seen by renal team yesterday, still having some right flank pain. Still having some reddish urine as well. Still waiting to be seen by pain management team. Exam/Review of Systems Vital Signs Vitals Vital Signs Date Time Temp Pulse Resp B/P Pulse Ox O2 Delivery O2 Flow Rate FiO2 03/07/17 08:00 69 03/07/17 07:38 97.8 22 170/93 96 03/06/17 00:23 Room Air Intake and Output 03/06/17 03/06/17 03/07/17 15:00 23:00 07:00 Intake Total 50 ml 2050 ml Balance 50 ml 2050 ml Exam Constitutional: alert, oriented, in mild distress Head: atraumatic, normocephalic Eyes: EOMI, PERRL Neck: supple Respiratory: clear to auscultation, normal air movement Cardiovascular: nl pulses, regular rate and rhythm Gastrointestinal: other (Right flank tenderness), soft, tender Extremities: normal pulses Results Result Diagram: 03/07/17 0625 03/07/17 0625 Results 24 hrs Laboratory Tests Test 03/06/17 11:00 03/06/17 11:43 03/06/17 17:00 03/07/17 06:25 Urine Opiates Screen Positive Urine Barbiturates Negative Urine Amphetamines Screen Negative Urine Benzodiazepines Screen Negative Urine Cocaine Screen Negative Urine Cannabinoids Negative Creatine Kinase 228 H 138 Urine Eosinophils % 0.0 Urine Random Creatinine 215.28 Urine Random Sodium < 13 L Urine Protein/Creatinine Ratio 0.76 Urine Total Protein 164.0 H White Blood Count 7.1 Red Blood Count 3.53 L Hemoglobin 11.0 L Hematocrit 33.3 L Mean Corpuscular Volume 94.3 Mean Corpuscular Hemoglobin 31.2 Mean Corpuscular Hemoglobin Concent 33.0 Red Cell Distribution Width 13.5 Platelet Count 327 Mean Platelet Volume 8.5 Neutrophils % 71.3 Lymphocytes % 9.5 L Monocytes % 11.4 H Eosinophils % 6.8 Basophils % 0.3 Nucleated Red Blood Cells % 0.0 Neutrophils # (Manual) 5.1 Lymphocytes # 0.7 L Monocytes # 0.8 Eosinophils # 0.5 Basophils # 0.0 Nucleated Red Blood Cells # 0.0 Sodium Level 136 Potassium Level 3.7 Chloride Level 99 Carbon Dioxide Level 26 Anion Gap 15 Blood Urea Nitrogen 28 H Creatinine 1.74 H Glucose Level 246 H Uric Acid 5.7 Calcium Level 9.9 Phosphorus Level 5.3 H Magnesium Level 1.8 C-Reactive Protein 1.7 H Hepatitis B Surface Antigen NEGATIVE Hepatitis B Core Total Antibody NEGATIVE Hepatitis C Antibody NEGATIVE HIV (1&2) Antibody NEGATIVE Medications Medications Current Medications Morphine Sulfate (morphine) 4 mg Q4H PRN IV PAIN Last administered on 10:35; Admin Dose 4 MG; Start 03/06/17 at 01:30 Acetaminophen/ Hydrocodone Bitart ([place] (5/325)) 1 tab Q4H PRN PO PAIN Last administered on 03/06/17 02:44; Admin Dose 1 TAB; Start 03/06/17 at 01:30 Ondansetron HCl (Zofran Inj) 4 mg Q6H PRN IV NAUSEA AND/OR VOMITING Last administered on 03/06/17 08:27; Admin Dose 4 MG; Start 03/06/17 at 01:30 Diphenhydramine HCl (Benadryl) 25 mg Q6H PRN PO ITCHING Last administered on 01:31; Admin Dose 25 MG; Start 03/06/17 at 01:30 Hydralazine HCl (Apresoline) 10 mg Q4H PRN IV SBP>160; Start 03/06/17 at 01:30 Clonidine (Catapres) 0.2 mg BID PO Last administered on 03/07/17 08:23; Admin Dose 0.2 MG; Start 03/06/17 at 09:00 Labetalol HCl 200 mg 200 mg BID PO Last administered on 03/07/17 08:23; Admin Dose 200 MG; Start 03/06/17 at 09:00 Cefepime HCl (Maxipime 1gm/50 ml (Pmx)) 50 ml @ 100 mls/hr Q12 IVPB Last administered on 03/07/17 08:23; Admin Dose 100 MLS/HR; Start 03/06/17 at 09:00 Hydromorphone HCl 1 mg 1 mg Q4H PRN IV PAIN Last administered on 03/06/17 09: 44; Admin Dose 1 MG; Start 03/06/17 at 09:00; Status Future Hold Sodium Chloride (NS) 1,000 ml @ 75 mls/hr [id number] IV Last administered on 03/06 23:39; Admin Dose 100 MLS/HR; Start 03/06/17 at 09:30 Baclofen 10 mg 10 mg TID PO Last administered on 03/07/17 08:23; Admin Dose 10 MG; Start 03/06/17 at 11:30 Vancomycin HCl/ Sodium Chloride (Vancocin/NS) 250 ml @ 83.333 mls/ hr Q12H IVPB Last administered on 03/07/17 04:08; Admin Dose 83.333 MLS/HR; Start at 16:00 Miscellaneous Information (*Rx Drug Level Order Reminder*) VANCOMYCIN TROUGH AT 1500 ONCE ONCE XX ; Start 03/07/17 at 15:00; Stop 03/07/17 at 15:01 Hydromorphone HCl (Dilaudid) 0.5 mg Q4H PRN IV PAIN Last administered on 08:23; Admin Dose 0.5 MG; Start 03/06/17 at 17:30 Amlodipine Besylate (Norvasc) 10 mg QHS PO Last administered on 03/06/17 20:56 ; Admin Dose 10 MG; Start 03/06/17 at 21:00 HAZEL ALONZO Mar 07, 2017 11:07
[2017-03-07] MEDS ORDERED: HYDROmorphONE 1 MG/ML SYG IV PRN (12:23)
--- NOTE | 2017-03-07 13:43 | CONS ---
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 Patient diagnosed with right pyelonephritis, renal colic and nephrolithiasis. Patient states that the first time it happened to him describes it as excruciating pain associated with hematuria, spasmy type discomfort. Rates his pain as 10/10 now it is 7/10 but continues to have spasm that peaks and troughs. Denies nausea vomiting chest pain shortness of breath pruritus constipation, and his past medical history of alcohol or drug use no history of addiction disorders, patient looks professional and well-kept personal hygiene is good. Patient was not taking any pain control medications at home he was given Toradol emergency room and had a reaction with hives and bronchospasm. The pain has interfered with his physical functioning social relations mood and sleeping patterns, he has not been negotiating for higher dose pain control medication nor does he insist on certain pain control medication. Constitutional: no complaints, No chills, No diaphoresis, No disoriented, No febrile, No improved, No other , No poor po, No requiring IVF, No requiring O2 Eyes: no complaints, No discharge, No other, No pain, No redness, No visual change ENT: no complaints Respiratory: no complaints, No cough, No other, No pain, No pleuritic pain, No shortness of breath, No sputum, No wheezing Cardiovascular: no complaints, No chest pain, No edema, No lightheadedness, No orthopenea, No other, No palpitations, No paroxysmal nocturnal dyspnea Gastrointestinal: constipation, pain Genitourinary: bleeding, flank pain Musculoskeletal: back pain, neck pain, no complaints Skin: no complaints Neurologic: no complaints, No confusion, No dizziness, No focal-weakness, No headache, No other, No seizure, No syncope Endocrine: no complaints Lymphatic: no complaints Psychological: no complaints, No anxiety, No confusion, No depression, No nl mood/affect, No other, No suicidal Immunologic: no complaints Past Medical History Medical History: no pertinent history, hypertension Past Surgical History Past Surgical Hx: no surgical history Social History Alcohol Use: occasionally Smoking Status: Never smoker Drug Use: none Exam/Review of Systems Vital Signs Vitals Vital Signs Date Time Temp Pulse Resp B/P Pulse Ox O2 Delivery O2 Flow Rate FiO2 03/07/17 12:00 82 03/07/17 11:02 97.7 18 154/88 95 03/06/17 00:23 Room Air Intake and Output 03/06/17 03/06/17 03/07/17 15:00 23:00 07:00 Intake Total 50 ml 2050 ml Balance 50 ml 2050 ml Exam Constitutional: alert, oriented, well developed Psych: nl mood/affect, no complaints Head: atraumatic, normocephalic Eyes: EOMI, PERRL, nl conjunctiva, nl lids, nl sclera Neck: non-tender, supple Respiratory: clear to auscultation, normal air movement Cardiovascular: nl pulses, regular rate and rhythm Gastrointestinal: nl liver, spleen, non-tender, soft Neurological: 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 II-XII intact, nl mental status, nl speech, nl strength Results Result Diagram: 03/07/1725 03/07/17 0625 Results 24 hrs Laboratory Tests Test 03/06/17 17:00 03/07/17 06:25 Urine Eosinophils % 0.0 Urine Random Creatinine 215.28 Urine Random Sodium < 13 L Urine Protein/Creatinine Ratio 0.76 Urine Total Protein 164.0 H White Blood Count 7.1 Red Blood Count 3.53 L Hemoglobin 11.0 L Hematocrit 33.3 L Mean Corpuscular Volume 94.3 Mean Corpuscular Hemoglobin 31.2 Mean Corpuscular Hemoglobin Concent 33.0 Red Cell Distribution Width 13.5 Platelet Count 327 Mean Platelet Volume 8.5 Neutrophils % 71.3 Lymphocytes % 9.5 L Monocytes % 11.4 H Eosinophils % 6.8 Basophils % 0.3 Nucleated Red Blood Cells % 0.0 Neutrophils # (Manual) 5.1 Lymphocytes # 0.7 L Monocytes # 0.8 Eosinophils # 0.5 Basophils # 0.0 Nucleated Red Blood Cells # 0.0 Erythrocyte Sedimentation Rate 21 H Sodium Level 136 Potassium Level 3.7 Chloride Level 99 Carbon Dioxide Level 26 Anion Gap 15 Blood Urea Nitrogen 28 H Creatinine 1.74 H Glucose Level 246 H Uric Acid 5.7 Calcium Level 9.9 Phosphorus Level 5.3 H Magnesium Level 1.8 Creatine Kinase 138 C-Reactive Protein 1.7 H Hepatitis B Surface Antigen NEGATIVE Hepatitis B Core Total Antibody NEGATIVE Hepatitis C Antibody NEGATIVE HIV (1&2) Antibody NEGATIVE Medications Medications Current Medications Morphine Sulfate (morphine) 4 mg Q4H PRN IV PAIN Last administered on 10:35; Admin Dose 4 MG; Start 03/06/17 at 01:30 Acetaminophen/ Hydrocodone Bitart ([place] (5/325)) 1 tab Q4H PRN PO PAIN Last administered on 03/06/17 02:44; Admin Dose 1 TAB; Start 03/06/17 at 01:30 Ondansetron HCl (Zofran Inj) 4 mg Q6H PRN IV NAUSEA AND/OR VOMITING Last administered on 03/06/17 08:27; Admin Dose 4 MG; Start 03/06/17 at 01:30 Diphenhydramine HCl (Benadryl) 25 mg Q6H PRN PO ITCHING Last administered on 01:31; Admin Dose 25 MG; Start 03/06/17 at 01:30 Hydralazine HCl (Apresoline) 10 mg Q4H PRN IV SBP>160; Start 03/06/17 at 01:30 Clonidine (Catapres) 0.2 mg BID PO Last administered on 03/07/17 08:23; Admin Dose 0.2 MG; Start 03/06/17 at 09:00 Labetalol HCl (Normodyne) 200 mg BID PO Last administered on 03/07/17 08:23; Admin Dose 200 MG; Start 03/06/17 at 09:00 Hydromorphone HCl 1 mg 1 mg Q4H PRN IV PAIN Last administered on 03/06/17 09: 44; Admin Dose 1 MG; Start 03/06/17 at 09:00; Status Future Hold Sodium Chloride (NS) 1,000 ml @ 75 mls/hr [id number] IV Last administered on 03/06 23:39; Admin Dose 100 MLS/HR; Start 03/06/17 at 09:30 Baclofen (Lioresal) 10 mg TID PO Last administered on 03/07/17 12:32; Admin Dose 10 MG; Start 03/06/17 at 11:30 Amlodipine Besylate (Norvasc) 10 mg QHS PO Last administered on 03/06/17 20:56 ; Admin Dose 10 MG; Start 03/06/17 at 21:00 Hydromorphone HCl (Dilaudid) 1 mg Q4H PRN IV PAIN Last administered on 12:32; Admin Dose 1 MG; Start 03/07/17 at 12:23 TIFFANY JANE Mar 07, 2017 13:43 TIFFANY JANE Mar 07, 2017 13:43
[2017-03-07] MEDS: LEVOFLOXACIN 750MG/D5W (PMX) 150 ML IVPB SCH (14:08)
[2017-03-07] MEDS: HYDROmorphONE 0.2 MG/ML PCA IV SCH ×2 (14:46→20:33)
[2017-03-07] MEDS: SOD CHLORIDE 0.9% 1,000 ML IV SCH (15:50)
--- NOTE | 2017-03-07 16:54 | CONS ---
Date/Time of Note Date/Time of Note DATE: 03/07/17 TIME: 16:52 Assessment/Plan Assessment/Plan Chief Complaint/Hosp Course 46-year-old male with a history of hypertension who presented to the emergency department for right flank pain and elevated blood pressure. He said he has been having right flank pain and hematuria for the past 2 days for which he went to urgent care. His blood pressure was noted to be elevated and as such she was instructed to go to the ER. He denied fever, chills, nausea, vomiting. He also denied a history of kidney stone. When he presented to the ER initial blood pressure was 192/105 but has been as high as 212/138. Labs shows a creatinine of 1.76, potassium 3.4, hemoglobin 12.8. Is consistent with UTI and also was significant amount of RBCs. CT abdomen/pelvis shows no kidney or ureteral stone. No hydro-nephrosis. Noted however was 1.5 cm right adrenal nodule and 0.4 cm right pulmonary nodule. Problems: Additional Assessment/Plan 1. Acute kidney injury with bravo hematuria- Differential includes ATN vs Acute pre renal azotemia vs Acute Glomerulonephritis vs Hypertnsive nephrosclerosis 2. Hyperrensive emergency 3. Hematuria,Bravo 4. h/o HTN 5. Morbid obesity 6. Possible UTI/Pyelonephrits Plan: Pt has been on IV abx for cystitis/pyelonephritis but he has less convincing evidence of UTI. No urine culture has been sent. His admission Cr 1.76 with Ca 11. He has 3 + protein and More than 120 RBC on UA without any significant evidnece of uTI- his differential diagnosis for Osito includes ATN vs Acute pre renal azotemia vs Acute Glomerulonephritis vs Hypertnsive nephrosclerosis No previous Cr available, pt denies any PMHx of CKD. no NSAID use, no Family h/ o renal disease IV abx for UTI- renally dose abx BP control, goal BP<140/80- amlodipine 10mg pO QHS has been added, IV hydralazine prn Renal US Ordered work up including Uprot/cr ratio, Urine Na, Urine eosinophils, CK total, Uric acid TAYLOR< ANCA, ESR< CRP, Rheumatoid factor, 24 hr urine collection for protein . Consultation Date/Type/Reason Admit Date/Time Mar 05, 2017 at 22:27 Initial Consult Date 03/06/17 Type of Consultation: NEPHROLOGY Referring Provider: HAZEL ALONZO Exam/Review of Systems Vital Signs Vitals Vital Signs Date Time Temp Pulse Resp B/P Pulse Ox O2 Delivery O2 Flow Rate FiO2 03/07/17 16:00 74 03/07/17 15:08 98.3 18 176/83 94 03/06/17 00:23 Room Air Intake and Output 03/06/17 03/06/17 03/07/17 15:00 23:00 07:00 Intake Total 50 ml 2050 ml Balance 50 ml 2050 ml Exam Constitutional: alert, oriented Head: atraumatic, normocephalic Eyes: EOMI, PERRL Neck: supple Respiratory: clear to auscultation, normal air movement Cardiovascular: nl pulses, regular rate and rhythm Gastrointestinal: other (Right flank tenderness), soft, tender Extremities: normal pulses Constitutional: alert Psych: no complaints Results Result Diagram: 03/07/17 0625 03/07/17 0625 Results 24 hrs Laboratory Tests Test 03/06/17 17:00 03/07/17 06:25 Urine Eosinophils % 0.0 Urine Random Creatinine 215.28 Urine Random Sodium < 13 L Urine Protein/Creatinine Ratio 0.76 Urine Total Protein 164.0 H White Blood Count 7.1 Red Blood Count 3.53 L Hemoglobin 11.0 L Hematocrit 33.3 L Mean Corpuscular Volume 94.3 Mean Corpuscular Hemoglobin 31.2 Mean Corpuscular Hemoglobin Concent 33.0 Red Cell Distribution Width 13.5 Platelet Count 327 Mean Platelet Volume 8.5 Neutrophils % 71.3 Lymphocytes % 9.5 L Monocytes % 11.4 H Eosinophils % 6.8 Basophils % 0.3 Nucleated Red Blood Cells % 0.0 Neutrophils # (Manual) 5.1 Lymphocytes # 0.7 L Monocytes # 0.8 Eosinophils # 0.5 Basophils # 0.0 Nucleated Red Blood Cells # 0.0 Erythrocyte Sedimentation Rate 21 H Sodium Level 136 Potassium Level 3.7 Chloride Level 99 Carbon Dioxide Level 26 Anion Gap 15 Blood Urea Nitrogen 28 H Creatinine 1.74 H Glucose Level 246 H Uric Acid 5.7 Calcium Level 9.9 Phosphorus Level 5.3 H Magnesium Level 1.8 Creatine Kinase 138 C-Reactive Protein 1.7 H Hepatitis B Surface Antigen NEGATIVE Hepatitis B Core Total Antibody NEGATIVE Hepatitis C Antibody NEGATIVE HIV (1&2) Antibody NEGATIVE Medications Medications Current Medications Ondansetron HCl (Zofran Inj) 4 mg Q6H PRN IV NAUSEA AND/OR VOMITING Last administered on 03/06/17 08:27; Admin Dose 4 MG; Start 03/06/17 at 01:30 Diphenhydramine HCl (Benadryl) 25 mg Q6H PRN PO ITCHING Last administered on 01:31; Admin Dose 25 MG; Start 03/06/17 at 01:30 Hydralazine HCl (Apresoline) 10 mg Q4H PRN IV SBP>160; Start 03/06/17 at 01:30 Clonidine (Catapres) 0.2 mg BID PO Last administered on 03/07/17 08:23; Admin Dose 0.2 MG; Start 03/06/17 at 09:00 Labetalol HCl 200 mg 200 mg BID PO Last administered on 03/07/17 08:23; Admin Dose 200 MG; Start 03/06/17 at 09:00 Sodium Chloride (NS) 1,000 ml @ 75 mls/hr [id number] IV Last administered on 03/07 15:50; Admin Dose 75 MLS/HR; Start 03/06/17 at 09:30 Baclofen (Lioresal) 10 mg TID PO Last administered on 03/07/17 12:32; Admin Dose 10 MG; Start 03/06/17 at 11:30 Amlodipine Besylate 10 mg 10 mg QHS PO Last administered on 03/06/17 20:56; Admin Dose 10 MG; Start 03/06/17 at 21:00 Levofloxacin/ Dextrose (Levaquin 750 Mg/ D5W 150 ml (Pmx)) 150 ml @ 100 mls/hr Q48H IVPB Last administered on 03/07/17 14:08; Admin Dose 100 MLS/HR; Start at 14:00 Hydromorphone HCl (Dilaudid VALIDATION SCIENTIST) 0.5 MG/HR CONTINUOUS RATE ... Q4PCA IV Last administered on 03/07/17 14:46; Admin Dose 0.5 MG; Start 03/07/17 at 13:30 COLIN PAREDES MD Mar 07, 2017 16:54
--- NOTE | 2017-03-07 18:23 | CONS ---
Date/Time of Note Date/Time of Note DATE: 03/07/17 TIME: 18:18 Assessment/Plan Assessment/Plan Problems: (1) Primary hyperaldosteronism Status: Chronic Comment: The adrenal nodule is most likely the source of this. The ideal treatment actually is not direct aldosterone antagonist such as either Spironolactone or eplerenone. Spironolactone sees use 1 to work with. I will get him started on that just as soon as we have drawn the blood for this simultaneous aldosterone and plasma renin activity. Obviously those will be back before he is ready to be discharged from the hospital and as such the spironolactone is the [place] therapeutic modality in this gentleman. His clinical presentation is consistent (2) Hypertensive crisis Status: Acute Comment: Spironolactone in the morning Consultation Date/Type/Reason Admit Date/Time Mar 05, 2017 at 22:27 Date of Consultation: Mar 07, 2017 Type of Consultation: Endocrinology Reason for Consultation Adrenal nodule; difficult to control hypertension; Referring Provider: HAZEL ALONZO of Present Illness 46-year-old gentleman visiting [facility] from [place] on vacation. He developed pain and hematuria while visiting his aunt and required hospitalization. He reports that 3 years ago he was referred to an historian research assistant in [place] for an asymmetry of his adrenal glands during the onset of significant hypertension. He has had issues with hypokalemia. He reports he ultimately had a needle biopsy was benign. However he also reports that he was told that selective sampling from the adrenal glands demonstrated the left adrenal gland have a level of 3 in the right adrenal gland will have a level of 750. He states that he was told that he had primary hyperaldosteronism. He initially was treated with Spironolactone with excellent control of his blood pressure. However he did not have any further follow-ups with the historian research assistant and ultimately his insurance changed his provider. Subsequently the new providers opted to change him off of the Spironolactone and onto new medications. Since that time he has had difficult to control blood pressure Constitutional: no complaints, No chills, No diaphoresis, No disoriented, No febrile, No improved, No other , No poor po, No requiring IVF, No requiring O2 Eyes: no complaints, No discharge, No other, No pain, No redness, No visual change ENT: no complaints Respiratory: no complaints, No cough, No other, No pain, No pleuritic pain, No shortness of breath, No sputum, No wheezing Cardiovascular: no complaints, No chest pain, No edema, No lightheadedness, No orthopenea, No other, No palpitations, No paroxysmal nocturnal dyspnea Gastrointestinal: constipation, pain Genitourinary: bleeding, flank pain Musculoskeletal: back pain, neck pain, no complaints Skin: no complaints Neurologic: no complaints, No confusion, No dizziness, No focal-weakness, No headache, No other, No seizure, No syncope Endocrine: no complaints Lymphatic: no complaints Psychological: nl mood/affect, no complaints Immunologic: no complaints Past Medical History Primary hyperaldosteronism; morbid obesity; snoring Medical History: no pertinent history, hypertension Past Surgical History Past Surgical Hx: no surgical history Social History Alcohol Use: occasionally Smoking Status: Never smoker Drug Use: none Exam/Review of Systems Vital Signs Vitals Vital Signs Date Time Temp Pulse Resp B/P Pulse Ox O2 Delivery O2 Flow Rate FiO2 03/07/17 16:00 74 03/07/17 15:08 98.3 18 176/83 94 03/06/17 00:23 Room Air Intake and Output 03/06/17 03/06/17 03/07/17 15:00 23:00 07:00 Intake Total 50 ml 2050 ml Balance 50 ml 2050 ml Exam Morbidly obese male in no anita distress Constitutional: alert, oriented Neck: non-tender, supple Respiratory: clear to auscultation, normal air movement Cardiovascular: nl pulses, regular rate and rhythm Gastrointestinal: nl liver, spleen, non-tender, soft Results Result Diagram: 03/07/1725 03/07/17 0625 Results 24 hrs Laboratory Tests Test 03/07/17 06:25 White Blood Count 7.1 Red Blood Count 3.53 L Hemoglobin 11.0 L Hematocrit 33.3 L Mean Corpuscular Volume 94.3 Mean Corpuscular Hemoglobin 31.2 Mean Corpuscular Hemoglobin Concent 33.0 Red Cell Distribution Width 13.5 Platelet Count 327 Mean Platelet Volume 8.5 Neutrophils % 71.3 Lymphocytes % 9.5 L Monocytes % 11.4 H Eosinophils % 6.8 Basophils % 0.3 Nucleated Red Blood Cells % 0.0 Neutrophils # (Manual) 5.1 Lymphocytes # 0.7 L Monocytes # 0.8 Eosinophils # 0.5 Basophils # 0.0 Nucleated Red Blood Cells # 0.0 Erythrocyte Sedimentation Rate 21 H Sodium Level 136 Potassium Level 3.7 Chloride Level 99 Carbon Dioxide Level 26 Anion Gap 15 Blood Urea Nitrogen 28 H Creatinine 1.74 H Glucose Level 246 H Uric Acid 5.7 Calcium Level 9.9 Phosphorus Level 5.3 H Magnesium Level 1.8 Creatine Kinase 138 C-Reactive Protein 1.7 H Hepatitis B Surface Antigen NEGATIVE Hepatitis B Core Total Antibody NEGATIVE Hepatitis C Antibody NEGATIVE HIV (1&2) Antibody NEGATIVE Medications Medications Current Medications Ondansetron HCl (Zofran Inj) 4 mg Q6H PRN IV NAUSEA AND/OR VOMITING Last administered on 03/06/17 08:27; Admin Dose 4 MG; Start 03/06/17 at 01:30 Diphenhydramine HCl (Benadryl) 25 mg Q6H PRN PO ITCHING Last administered on 01:31; Admin Dose 25 MG; Start 03/06/17 at 01:30 Hydralazine HCl (Apresoline) 10 mg Q4H PRN IV SBP>160; Start 03/06/17 at 01:30 Clonidine (Catapres) 0.2 mg BID PO Last administered on 03/07/17 08:23; Admin Dose 0.2 MG; Start 03/06/17 at 09:00 Labetalol HCl 200 mg 200 mg BID PO Last administered on 03/07/17 08:23; Admin Dose 200 MG; Start 03/06/17 at 09:00 Sodium Chloride (NS) 1,000 ml @ 75 mls/hr [id number] IV Last administered on 03/07 15:50; Admin Dose 75 MLS/HR; Start 03/06/17 at 09:30 Baclofen (Lioresal) 10 mg TID PO Last administered on 03/07/17 12:32; Admin Dose 10 MG; Start 03/06/17 at 11:30 Amlodipine Besylate 10 mg 10 mg QHS PO Last administered on 03/06/17 20:56; Admin Dose 10 MG; Start 03/06/17 at 21:00 Levofloxacin/ Dextrose (Levaquin 750 Mg/ D5W 150 ml (Pmx)) 150 ml @ 100 mls/hr Q48H IVPB Last administered on 03/07/17 14:08; Admin Dose 100 MLS/HR; Start at 14:00 Hydromorphone HCl (Dilaudid TICKET DISPENSER CHANGER) 0.5 MG/HR CONTINUOUS RATE ... Q4PCA IV Last administered on 03/07/17 14:46; Admin Dose 0.5 MG; Start 03/07/17 at 13:30 Doxazosin Mesylate (Cardura) 1 mg ONCE ONCE PO ; Start 03/07/17 at 18:30; Stop 03/07/17 at 18:31 Doxazosin Mesylate (Cardura) 1 mg HS PO ; Start 03/08/17 at 21:00 LALO JOLLEY MD Mar 07, 2017 18:23
[2017-03-07] MEDS ORDERED: DOXAZOSIN 1 MG TAB PO ONE (18:30)
[2017-03-07] MEDS: AMLODIPINE 10 MG TAB PO SCH (20:07)
[2017-03-07] MEDS: ZOLPIDEM 5 MG TAB PO PRN (20:37)
[2017-03-08] VITALS (14 sets, daily range): BP systolic 143–175; BP diastolic 74–100; PULSE 72–90; RESP 18
[2017-03-08] MEDS: HYDROmorphONE 0.2 MG/ML PCA IV SCH ×6 (02:39→23:42)
[2017-03-08] MEDS: SOD CHLORIDE 0.9% 1,000 ML IV SCH (05:29)
[2017-03-08 06:56] LABS: BASOPHILS % 0.2 % (0.0-2.0); EOSINOPHILS # 0.5 10^3/ul (0.0-0.5); EOSINOPHILS % 7.8 % (0.0-7.0); HEMATOCRIT 31.1 % (42.0-52.0); HEMOGLOBIN 10.7 g/dl (14.0-18.0); LYMPHOCYTES # 0.7 10^3/ul (0.8-2.9); LYMPHOCYTES % 11.6 % (15.0-51.0); MEAN CORPUSCULAR HEMOGLOBIN 32.3 pg (29.0-33.0); MEAN CORPUSCULAR HGB CONC 34.4 g/dl (32.0-37.0); MEAN PLATELET VOLUME 8.5 fl (7.4-10.4); MONOCYTE # 0.7 10^3/ul (0.3-0.9); MONOCYTES % 12.3 % (0.0-11.0); NEUTROPHILS % 67.1 % (39.0-77.0); PLATELET COUNT 312 10^3/UL (140-415); RED BLOOD COUNT 3.31 10^6/ul (4.70-6.10); RED CELL DISTRIBUTION WIDTH 13.3 % (11.5-14.5)
[2017-03-08 07:41] LABS: CALCIUM 9.3 mg/dl (8.4-10.2); CREATININE 1.34 mg/dl (0.61-1.24)
[2017-03-08] MEDS: BACLOFEN 10 MG TAB PO SCH ×3 (08:19→20:46)
[2017-03-08] MEDS: LABETALOL 200 MG TAB PO SCH ×2 (08:19→20:46)
--- NOTE | 2017-03-08 08:49 | CONS ---
Date/Time of Note Date/Time of Note DATE: 03/08/17 TIME: 08:46 Assessment/Plan Assessment/Plan Chief Complaint/Hosp Course 46-year-old gentleman visiting [facility] from [place] on vacation. He developed pain and hematuria while visiting his aunt and required hospitalization. He reports that 3 years ago he was referred to an group sales manager in [place] for an asymmetry of his adrenal glands during the onset of significant hypertension. He has had issues with hypokalemia. He reports he ultimately had a needle biopsy was benign. However he also reports that he was told that selective sampling from the adrenal glands demonstrated the left adrenal gland have a level of 3 in the right adrenal gland will have a level of 750. He states that he was told that he had primary hyperaldosteronism. He initially was treated with Spironolactone with excellent control of his blood pressure. However he did not have any further follow-ups with the group sales manager and ultimately his insurance changed his provider. Subsequently the new providers opted to change him off of the Spironolactone and onto new medications. Since that time he has had difficult to control blood pressure Problems: (1) Morbid obesity with BMI of 40.0-44.9, adult Status: Chronic Comment: I have had a careful discussion with the patient about the rationale and benefits of treatment with weight loss. I have advised him that a 25 pound weight loss for 10 or 12 kg would resolve his sugar is most likely and have a significant benefit on his total quality of life. He reports his actual goal weight loss would be 75 pounds. He contracts to try and lose 1 pound a week over the next 6 months. (2) Diabetes mellitus type 2 in obese Status: Chronic Comment: While this is a new diagnosis is not a new issue. This is due to his weight as well as his genetics. Given the resolution of his renal function he can go on to very low-dose metformin which will fix her sugars (3) Primary hyperaldosteronism Status: Chronic Comment: Blood tests will be done I will start on this Aldactone today. Please note his alleged allergy to Spironolactone was actually to the hydrochlorothiazide i.e. the sulfa moiety. Consultation Date/Type/Reason Admit Date/Time Mar 05, 2017 at 22:27 Initial Consult Date 03/07/17 Type of Consultation: Endocrinology Reason for Consultation New diagnosis diabetes mellitus type 2; morbid obesity; primary hyperaldosteronism Referring Provider: HAZEL ALONZO 24 HR Interval Summary Free Text/Dictation Patient reports he never been told about sugar issues. Still complains of flank pain Exam/Review of Systems Vital Signs Vitals Vital Signs Date Time Temp Pulse Resp B/P Pulse Ox O2 Delivery O2 Flow Rate FiO2 03/08/17 08:12 72 03/08/17 07:47 98.3 18 162/91 96 03/06/17 00:23 Room Air Intake and Output 03/07/17 03/07/17 03/08/17 15:00 23:00 07:00 Intake Total 2650 ml 3225 ml Balance 2650 ml 3225 ml Exam Constitutional: alert, oriented Respiratory: clear to auscultation, normal air movement Skin: other (No pigmented IIIa) Results Result Diagram: 03/08/17 0611 03/08/17 0611 Results 24 hrs Laboratory Tests Test 03/08/17 06:11 White Blood Count 6.0 Red Blood Count 3.31 L Hemoglobin 10.7 L Hematocrit 31.1 L Mean Corpuscular Volume 94.0 Mean Corpuscular Hemoglobin 32.3 Mean Corpuscular Hemoglobin Concent 34.4 Red Cell Distribution Width 13.3 Platelet Count 312 Mean Platelet Volume 8.5 Neutrophils % 67.1 Lymphocytes % 11.6 L Monocytes % 12.3 H Eosinophils % 7.8 H Basophils % 0.2 Nucleated Red Blood Cells % 0.0 Neutrophils # (Manual) 4 Lymphocytes # 0.7 L Monocytes # 0.7 Eosinophils # 0.5 Basophils # 0.0 Nucleated Red Blood Cells # 0.0 Sodium Level 138 Potassium Level 4.0 Chloride Level 103 Carbon Dioxide Level 25 Anion Gap 14 Blood Urea Nitrogen 20 Creatinine 1.34 H Glucose Level 195 Hemoglobin A1c 7.4 H Calcium Level 9.3 Medications Medications Current Medications Ondansetron HCl (Zofran Inj) 4 mg Q6H PRN IV NAUSEA AND/OR VOMITING Last administered on 03/06/17 08:27; Admin Dose 4 MG; Start 03/06/17 at 01:30 Diphenhydramine HCl (Benadryl) 25 mg Q6H PRN PO ITCHING Last administered on 01:31; Admin Dose 25 MG; Start 03/06/17 at 01:30 Hydralazine HCl (Apresoline) 10 mg Q4H PRN IV SBP>160; Start 03/06/17 at 01:30 Clonidine (Catapres) 0.2 mg BID PO Last administered on 03/08/17 08:18; Admin Dose 0.2 MG; Start 03/06/17 at 09:00 Labetalol HCl 200 mg 200 mg BID PO Last administered on 03/08/17 08:19; Admin Dose 200 MG; Start 03/06/17 at 09:00 Sodium Chloride (NS) 1,000 ml @ 75 mls/hr [id number] IV Last administered on 03/08 05:29; Admin Dose 75 MLS/HR; Start 03/06/17 at 09:30 Baclofen (Lioresal) 10 mg TID PO Last administered on 03/08/17 08:19; Admin Dose 10 MG; Start 03/06/17 at 11:30 Amlodipine Besylate 10 mg 10 mg QHS PO Last administered on 03/07/17 20:07; Admin Dose 10 MG; Start 03/06/17 at 21:00 Levofloxacin/ Dextrose (Levaquin 750 Mg/ D5W 150 ml (Pmx)) 150 ml @ 100 mls/hr Q48H IVPB Last administered on 03/07/17 14:08; Admin Dose 100 MLS/HR; Start at 14:00 Hydromorphone HCl (Dilaudid WEBMETHODS CONSULTANT) 0.5 MG/HR CONTINUOUS RATE ... Q4PCA IV Last administered on 03/08/17 02:39; Admin Dose 6 MG; Start 03/07/17 at 13:30 Doxazosin Mesylate (Cardura) 1 mg HS PO ; Start 03/08/17 at 21:00 Spironolactone (Aldactone) 25 mg DAILY PO ; Start 03/08/17 at 10:00 Miscellaneous Information 1 ea NOTE XX ; Start 03/08/17 at 09:00 Glucose (Glutose) 15 gm Q15M PRN PO DECREASED GLUCOSE; Start 03/08/17 at 09:00 Glucose (Glutose) 22.5 gm Q15M PRN PO DECREASED GLUCOSE; Start 03/08/17 at 09: 00 Dextrose (D50w Syringe) 25 ml Q15M PRN IV DECREASED GLUCOSE; Start 03/08/17 at 09:00 Dextrose (D50w Syringe) 50 ml Q15M PRN IV DECREASED GLUCOSE; Start 03/08/17 at 09:00 Glucagon (Glucagen) 1 mg Q15M PRN IM DECREASED GLUCOSE; Start 03/08/17 at 09:00 Glucose (Glutose) 15 gm Q15M PRN BUCCAL DECREASED GLUCOSE; Start 03/08/17 at 09 :00 LALO JOLLEY MD Mar 08, 2017 08:49
[2017-03-08] MEDS ORDERED: GLUCAGON 1 MG INJ IM PRN (09:00)
[2017-03-08] MEDS ORDERED: GLUCOSE GEL 15 GRAM TUBE PO PRN ×2 (09:00)
[2017-03-08] MEDS ORDERED: DEXTROSE 50% 50 ML SYRINGE IV PRN ×2 (09:00)
[2017-03-08] MEDS ORDERED: GLUCOSE GEL 15 GRAM TUBE BUCCAL PRN (09:00)
[2017-03-08] MEDS: SPIRONOLACTONE 25 MG TAB PO SCH (10:01)
--- NOTE | 2017-03-08 10:28 | PN ---
Date/Time of Note Date/Time of Note DATE: 03/08/17 TIME: 10:16 Assessment/Plan VTE Prophylaxis VTE Prophylaxis Intervention: SCD's Lines/Catheters IV [facility]from [facility] Urinary Cath still in place: No Assessment/Plan Chief Complaint/Hosp Course Assessment/Plan: 46-year-old male visiting from [place], who presents with: 1 right-sided flank pain with proteinuria and hematuria: Still with some right lower quadrant pain. 3+ hemoglobin found on UA. There was some bladder thickening found on CT scan as well. Appreciate renal and endocrine consults. Per renal team differential includes ATN vs Acute pre renal azotemia vs Acute Glomerulonephritis vs Hypertensive nephrosclerosis. -Continue IV fluid, follow-up 24-hour urine protein test, renal recommendations , endo rec's -Follow-up culture results -Pain management for now continue CHEMICAL UNIT OPERATOR pump -Monitor for now, have requested urology consult. Concern about possible need to rule out bladder cancer. I spoke with urology team supervisor ornamental ironworking yesterday they will look at the CT scan of abdomen and pelvis, but recommend patient following up as outpatient in [place]. If the patient continues to have significant hematuria, likely he will need to be evaluated here as an inpatient for further urologic evaluation. But for now they are recommending patient follow-up as outpatient. 2. Hypertensive urgency -improved now. 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 Patient states he is compliant with his p.o. blood pressure medicines at home. -Continue home medications, also on calcium channel david as well as Aldactone now (see # 4) 3. Adrenal nodule: Per evaluation from endocrinology team, this appears to be the source of patient's primary hyperaldosteronism. He apparently was diagnosed with this 3 years ago in [place] as well and treated with spironolactone at that time, however he lost follow-up to his pm head cook and with change of insurance, had changes made to his blood pressure medicines since then, and apparently has been off of this medicine for some time now -Follow-up aldosterone and plasma renin activity and serum tests as ordered by endocrinology team -Has been started on Aldactone now in addition to his other p.o. blood pressure medicines, monitor blood pressure -Follow-up results of urine metanephrine test (still pending). Problems: Subjective 24 Hr Interval Summary Free Text/Dictation Patient started on CHEMICAL UNIT OPERATOR pump yesterday, minimal improvement in pain symptoms. Also evaluated by pm head cook and renal team yesterday. Still having dark urine. Exam/Review of Systems Vital Signs Vitals Vital Signs Date Time Temp Pulse Resp B/P Pulse Ox O2 Delivery O2 Flow Rate FiO2 03/08/17 08:12 72 03/08/17 07:47 98.3 18 162/91 96 03/06/17 00:23 Room Air Intake and Output 03/07/17 03/07/17 03/08/17 15:00 23:00 07:00 Intake Total 2650 ml 3225 ml Balance 2650 ml 3225 ml Exam Constitutional: alert, oriented, in mild distress Head: atraumatic, normocephalic Eyes: EOMI, PERRL Neck: supple Respiratory: clear to auscultation, normal air movement Cardiovascular: nl pulses, regular rate and rhythm Gastrointestinal: other (Right flank tenderness), soft, tender Extremities: normal pulses Results Result Diagram: 03/08/17 0611 03/08/17 0611 Results 24 hrs Laboratory Tests Test 03/08/17 06:11 White Blood Count 6.0 Red Blood Count 3.31 L Hemoglobin 10.7 L Hematocrit 31.1 L Mean Corpuscular Volume 94.0 Mean Corpuscular Hemoglobin 32.3 Mean Corpuscular Hemoglobin Concent 34.4 Red Cell Distribution Width 13.3 Platelet Count 312 Mean Platelet Volume 8.5 Neutrophils % 67.1 Lymphocytes % 11.6 L Monocytes % 12.3 H Eosinophils % 7.8 H Basophils % 0.2 Nucleated Red Blood Cells % 0.0 Neutrophils # (Manual) 4 Lymphocytes # 0.7 L Monocytes # 0.7 Eosinophils # 0.5 Basophils # 0.0 Nucleated Red Blood Cells # 0.0 Sodium Level 138 Potassium Level 4.0 Chloride Level 103 Carbon Dioxide Level 25 Anion Gap 14 Blood Urea Nitrogen 20 Creatinine 1.34 H Glucose Level 195 Hemoglobin A1c 7.4 H Calcium Level 9.3 Medications Medications Current Medications Ondansetron HCl (Zofran Inj) 4 mg Q6H PRN IV NAUSEA AND/OR VOMITING Last administered on 03/06/17 08:27; Admin Dose 4 MG; Start 03/06/17 at 01:30 Diphenhydramine HCl (Benadryl) 25 mg Q6H PRN PO ITCHING Last administered on 01:31; Admin Dose 25 MG; Start 03/06/17 at 01:30 Hydralazine HCl (Apresoline) 10 mg Q4H PRN IV SBP>160; Start 03/06/17 at 01:30 Clonidine (Catapres) 0.2 mg BID PO Last administered on 03/08/17 08:18; Admin Dose 0.2 MG; Start 03/06/17 at 09:00 Labetalol HCl 200 mg 200 mg BID PO Last administered on 03/08/17 08:19; Admin Dose 200 MG; Start 03/06/17 at 09:00 Sodium Chloride (NS) 1,000 ml @ 75 mls/hr [id number] IV Last administered on 03/08 05:29; Admin Dose 75 MLS/HR; Start 03/06/17 at 09:30 Baclofen (Lioresal) 10 mg TID PO Last administered on 03/08/17 08:19; Admin Dose 10 MG; Start 03/06/17 at 11:30 Amlodipine Besylate 10 mg 10 mg QHS PO Last administered on 03/07/17 20:07; Admin Dose 10 MG; Start 03/06/17 at 21:00 Levofloxacin/ Dextrose (Levaquin 750 Mg/ D5W 150 ml (Pmx)) 150 ml @ 100 mls/hr Q48H IVPB Last administered on 03/07/17 14:08; Admin Dose 100 MLS/HR; Start at 14:00 Hydromorphone HCl (Dilaudid CHEMICAL UNIT OPERATOR) 0.5 MG/HR CONTINUOUS RATE ... Q4PCA IV Last administered on 03/08/17 10:03; Admin Dose 0.5 MG; Start 03/07/17 at 13:30 Doxazosin Mesylate (Cardura) 1 mg HS PO ; Start 03/08/17 at 21:00 Spironolactone (Aldactone) 25 mg DAILY PO Last administered on 03/08/17 10:01 ; Admin Dose 25 MG; Start 03/08/17 at 10:00 Miscellaneous Information 1 ea NOTE XX ; Start 03/08/17 at 09:00 Glucose (Glutose) 15 gm Q15M PRN PO DECREASED GLUCOSE; Start 03/08/17 at 09:00 Glucose (Glutose) 22.5 gm Q15M PRN PO DECREASED GLUCOSE; Start 03/08/17 at 09: 00 Dextrose (D50w Syringe) 25 ml Q15M PRN IV DECREASED GLUCOSE; Start 03/08/17 at 09:00 Dextrose (D50w Syringe) 50 ml Q15M PRN IV DECREASED GLUCOSE; Start 03/08/17 at 09:00 Glucagon (Glucagen) 1 mg Q15M PRN IM DECREASED GLUCOSE; Start 03/08/17 at 09:00 Glucose (Glutose) 15 gm Q15M PRN BUCCAL DECREASED GLUCOSE; Start 03/08/17 at 09 :00 Dexamethasone (Decadron) 1 mg ONCE ONCE PO ; Start 03/08/17 at 23:15; Stop at 23:16 HAZEL ALONZO Mar 08, 2017 10:26
--- NOTE | 2017-03-08 11:15 | CONS ---
Date/Time of Note Date/Time of Note DATE: 03/08/17 TIME: 11:11 Assessment/Plan Assessment/Plan Chief Complaint/Hosp Course 46-year-old gentleman presents to [facility] emergency room with severe right flank pain. Patient diagnosed with right pyelonephritis, renal colic and nephrolithiasis. Patient states that the first time it happened to him describes it as excruciating pain associated with hematuria, spasmy type discomfort. Rates his pain as 10/10 now it is 7/10 but continues to have spasm that peaks and troughs. Denies nausea vomiting chest pain shortness of breath pruritus constipation, and his past medical history of alcohol or drug use no history of addiction disorders, patient looks professional and well-kept personal hygiene is good. Patient was not taking any pain control medications at home he was given Toradol emergency room and had a reaction with hives and bronchospasm. The pain has interfered with his physical functioning social relations mood and sleeping patterns, he has not been negotiating for higher dose pain control medication nor does he insist on certain pain control medication. 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 Denies systemic side effects nausea vomiting chest pain shortness of breath dizziness diplopia disorientation. We will adjust his COMMAND POST CRAFTSMAN demand only have had a long discussion with him concerning ongoing pain control and appropriate use of the COMMAND POST CRAFTSMAN Consultation Date/Type/Reason Admit Date/Time Mar 05, 2017 at 22:27 Initial Consult Date 03/07/17 Referring Provider: HAZEL ALONZO Exam/Review of Systems Vital Signs Vitals Vital Signs Date Time Temp Pulse Resp B/P Pulse Ox O2 Delivery O2 Flow Rate FiO2 03/08/17 10:15 18 03/08/17 08:12 72 03/08/17 07:47 98.3 162/91 96 03/06/17 00:23 Room Air Intake and Output 03/07/17 03/07/17 03/08/17 15:00 23:00 07:00 Intake Total 2650 ml 3225 ml Balance 2650 ml 3225 ml Exam Constitutional: alert, oriented, well developed Psych: anxiety Neurological: AUTOMOTIVE GLASS INSTALLER II-XII intact, nl mental status, nl speech, nl strength, No DTR's symmetric, No confused, No focal weakness, No lethargic, No numbness , No other, No reflexes, No unresponsive Results Result Diagram: 03/08/17 0611 03/08/17 0611 Results 24 hrs Laboratory Tests Test 03/08/17 06:11 White Blood Count 6.0 Red Blood Count 3.31 L Hemoglobin 10.7 L Hematocrit 31.1 L Mean Corpuscular Volume 94.0 Mean Corpuscular Hemoglobin 32.3 Mean Corpuscular Hemoglobin Concent 34.4 Red Cell Distribution Width 13.3 Platelet Count 312 Mean Platelet Volume 8.5 Neutrophils % 67.1 Lymphocytes % 11.6 L Monocytes % 12.3 H Eosinophils % 7.8 H Basophils % 0.2 Nucleated Red Blood Cells % 0.0 Neutrophils # (Manual) 4 Lymphocytes # 0.7 L Monocytes # 0.7 Eosinophils # 0.5 Basophils # 0.0 Nucleated Red Blood Cells # 0.0 Sodium Level 138 Potassium Level 4.0 Chloride Level 103 Carbon Dioxide Level 25 Anion Gap 14 Blood Urea Nitrogen 20 Creatinine 1.34 H Glucose Level 195 Hemoglobin A1c 7.4 H Calcium Level 9.3 Medications Medications Current Medications Ondansetron HCl (Zofran Inj) 4 mg Q6H PRN IV NAUSEA AND/OR VOMITING Last administered on 03/06/17 08:27; Admin Dose 4 MG; Start 03/06/17 at 01:30 Diphenhydramine HCl (Benadryl) 25 mg Q6H PRN PO ITCHING Last administered on 01:31; Admin Dose 25 MG; Start 03/06/17 at 01:30 Hydralazine HCl (Apresoline) 10 mg Q4H PRN IV SBP>160; Start 03/06/17 at 01:30 Clonidine (Catapres) 0.2 mg BID PO Last administered on 03/08/17 08:18; Admin Dose 0.2 MG; Start 03/06/17 at 09:00 Labetalol HCl 200 mg 200 mg BID PO Last administered on 03/08/17 08:19; Admin Dose 200 MG; Start 03/06/17 at 09:00 Sodium Chloride (NS) 1,000 ml @ 75 mls/hr [id number] IV Last administered on 03/08 05:29; Admin Dose 75 MLS/HR; Start 03/06/17 at 09:30 Baclofen (Lioresal) 10 mg TID PO Last administered on 03/08/17 08:19; Admin Dose 10 MG; Start 03/06/17 at 11:30 Amlodipine Besylate 10 mg 10 mg QHS PO Last administered on 03/07/17 20:07; Admin Dose 10 MG; Start 03/06/17 at 21:00 Levofloxacin/ Dextrose (Levaquin 750 Mg/ D5W 150 ml (Pmx)) 150 ml @ 100 mls/hr Q48H IVPB Last administered on 03/07/17 14:08; Admin Dose 100 MLS/HR; Start at 14:00 Hydromorphone HCl (Dilaudid COMMAND POST CRAFTSMAN) 0.5MG/HR CONTINUOUS RATE ... Q4PCA IV Last administered on 03/08/17 10:03; Admin Dose 0.5 MG; Start 03/07/17 at 13:30 Doxazosin Mesylate (Cardura) 1 mg HS PO ; Start 03/08/17 at 21:00 Spironolactone (Aldactone) 25 mg DAILY PO Last administered on 03/08/17 10:01 ; Admin Dose 25 MG; Start 03/08/17 at 10:00 Miscellaneous Information 1 ea NOTE XX ; Start 03/08/17 at 09:00 Glucose (Glutose) 15 gm Q15M PRN PO DECREASED GLUCOSE; Start 03/08/17 at 09:00 Glucose (Glutose) 22.5 gm Q15M PRN PO DECREASED GLUCOSE; Start 03/08/17 at 09: 00 Dextrose (D50w Syringe) 25 ml Q15M PRN IV DECREASED GLUCOSE; Start 03/08/17 at 09:00 Dextrose (D50w Syringe) 50 ml Q15M PRN IV DECREASED GLUCOSE; Start 03/08/17 at 09:00 Glucagon (Glucagen) 1 mg Q15M PRN IM DECREASED GLUCOSE; Start 03/08/17 at 09:00 Glucose (Glutose) 15 gm Q15M PRN BUCCAL DECREASED GLUCOSE; Start 03/08/17 at 09 :00 Dexamethasone (Decadron) 1 mg ONCE ONCE PO ; Start 03/08/17 at 23:15; Stop at 23:16 Diagnostic Test (Pha) (Accu-Chek) 1 ea 02 XX ; Start 03/09/17 at 02:00 Diagnostic Test (Pha) (Accu-Chek) 1 ea 02 XX ; Start 03/09/17 at 02:00 TIFFANY JANE Mar 08, 2017 11:15
[2017-03-08] MEDS: INSULIN ASPART [NOVOLOG] 3 ML PEN SC SCH ×3 (12:09→21:02)
[2017-03-08] MEDS ORDERED: hydrALAzine 20 MG INJ IV PRN (13:00)
--- NOTE | 2017-03-08 13:08 | CONS ---
Date/Time of Note Date/Time of Note DATE: 03/08/17 TIME: 13:04 Assessment/Plan Assessment/Plan Chief Complaint/Hosp Course 46-year-old male with a history of hypertension who presented to the emergency department for right flank pain and elevated blood pressure. He said he has been having right flank pain and hematuria for the past 2 days for which he went to urgent care. His blood pressure was noted to be elevated and as such she was instructed to go to the ER. He denied fever, chills, nausea, vomiting. He also denied a history of kidney stone. When he presented to the ER initial blood pressure was 192/105 but has been as high as 212/138. Labs shows a creatinine of 1.76, potassium 3.4, hemoglobin 12.8. Is consistent with UTI and also was significant amount of RBCs. CT abdomen/pelvis shows no kidney or ureteral stone. No hydro-nephrosis. Noted however was 1.5 cm right adrenal nodule and 0.4 cm right pulmonary nodule. Problems: Additional Assessment/Plan 1. Acute kidney injury with bravo hematuria- Differential includes ATN vs Acute pre renal azotemia vs Acute Glomerulonephritis vs Hypertnsive nephrosclerosis 2. Hyperrensive emergency 3. Hematuria,Bravo 4. h/o HTN 5. Morbid obesity 6. Possible UTI/Pyelonephrits Plan: Pt has been on IV abx for cystitis/pyelonephritis but he has less convincing evidence of UTI. No urine culture has been sent. His admission Cr 1.76 with Ca 11. He has 3 + protein and More than 120 RBC on UA without any significant evidnece of uTI- his differential diagnosis for [place] includes ATN vs Acute pre renal azotemia vs Acute Glomerulonephritis vs Hypertnsive nephrosclerosis No previous Cr available, pt denies any PMHx of CKD. no NSAID use, no Family h/ o renal disease IV abx for UTI- renally dose abx Cr improved to 1.3 with IVF BP control, goal BP<140/80- increase amlodipine to 10mg PO BID,, IV hydralazine prn , need better BP control prior to discharge Renal US showed left renal cysts, C/w medical renal disease CKD and GN work up has been sent, will follow up as outpatient Consultation Date/Type/Reason Admit Date/Time Mar 05, 2017 at 22:27 Initial Consult Date 03/06/17 Reason for Consultation Acute kidney injury Referring Provider: HAZEL ALONZO Exam/Review of Systems Vital Signs Vitals Vital Signs Date Time Temp Pulse Resp B/P Pulse Ox O2 Delivery O2 Flow Rate FiO2 03/08/17 12:32 76 18 163/90 94 03/08/17 11:34 98.1 03/06/17 00:23 Room Air Intake and Output 03/07/17 03/07/17 03/08/17 15:00 23:00 07:00 Intake Total 2650 ml 3225 ml Balance 2650 ml 3225 ml Exam Constitutional: alert, oriented Head: atraumatic, normocephalic Eyes: EOMI, PERRL Neck: supple Respiratory: clear to auscultation, normal air movement Cardiovascular: nl pulses, regular rate and rhythm Gastrointestinal: other (Right flank tenderness), soft, tender Extremities: normal pulses Constitutional: alert Psych: no complaints Results Result Diagram: 03/08/17 0611 03/08/17 0611 Results 24 hrs Laboratory Tests Test 03/08/17 06:11 03/08/17 10:55 03/08/17 12:04 White Blood Count 6.0 Red Blood Count 3.31 L Hemoglobin 10.7 L Hematocrit 31.1 L Mean Corpuscular Volume 94.0 Mean Corpuscular Hemoglobin 32.3 Mean Corpuscular Hemoglobin Concent 34.4 Red Cell Distribution Width 13.3 Platelet Count 312 Mean Platelet Volume 8.5 Neutrophils % 67.1 Lymphocytes % 11.6 L Monocytes % 12.3 H Eosinophils % 7.8 H Basophils % 0.2 Nucleated Red Blood Cells % 0.0 Neutrophils # (Manual) 4 Lymphocytes # 0.7 L Monocytes # 0.7 Eosinophils # 0.5 Basophils # 0.0 Nucleated Red Blood Cells # 0.0 Sodium Level 138 Potassium Level 4.0 Chloride Level 103 Carbon Dioxide Level 25 Anion Gap 14 Blood Urea Nitrogen 20 Creatinine 1.34 H Glucose Level 195 Hemoglobin A1c 7.4 H Calcium Level 9.3 Urine Collection Duration 24 Urine Total Volume (Protein) 1300 Urine Total Protein 24 Hour Bedside Glucose 195 Medications Medications Current Medications Ondansetron HCl (Zofran Inj) 4 mg Q6H PRN IV NAUSEA AND/OR VOMITING Last administered on 03/06/17t 08:27; Admin Dose 4 MG; Start 03/06/17 at 01:30 Diphenhydramine HCl (Benadryl) 25 mg Q6H PRN PO ITCHING Last administered on 01:31; Admin Dose 25 MG; Start 03/06/17 at 01:30 Hydralazine HCl (Apresoline) 10 mg Q4H PRN IV SBP>160; Start 03/06/17 at 01:30 Clonidine (Catapres) 0.2 mg BID PO Last administered on 03/08/17 08:18; Admin Dose 0.2 MG; Start 03/06/17 at 09:00 Labetalol HCl (Normodyne) 200 mg BID PO Last administered on 03/08/17 08:19; Admin Dose 200 MG; Start 03/06/17 at 09:00 Baclofen (Lioresal) 10 mg TID PO Last administered on 03/08/17 12:05; Admin Dose 10 MG; Start 03/06/17 at 11:30 Amlodipine Besylate 10 mg 10 mg QHS PO Last administered on 03/07/17 20:07; Admin Dose 10 MG; Start 03/06/17 at 21:00 Levofloxacin/ Dextrose (Levaquin 750 Mg/ D5W 150 ml (Pmx)) 150 ml @ 100 mls/hr Q48H IVPB Last administered on 03/07/17 14:08; Admin Dose 100 MLS/HR; Start at 14:00 Hydromorphone HCl (Dilaudid COMMUNITY RELATIONS REP) 0.5MG/HR CONTINUOUS RATE ... Q4PCA IV Last administered on 03/08/17 11:17; Admin Dose 0.5 MG; Start 03/07/17 at 13:30 Doxazosin Mesylate (Cardura) 1 mg HS PO ; Start 03/08/17 at 21:00 Spironolactone (Aldactone) 25 mg DAILY PO Last administered on 03/08/17 10:01 ; Admin Dose 25 MG; Start 03/08/17 at 10:00 Miscellaneous Information 1 ea NOTE XX ; Start 03/08/17 at 09:00 Glucose (Glutose) 15 gm Q15M PRN PO DECREASED GLUCOSE; Start 03/08/17 at 09:00 Glucose (Glutose) 22.5 gm Q15M PRN PO DECREASED GLUCOSE; Start 03/08/17 at 09: 00 Dextrose (D50w Syringe) 25 ml Q15M PRN IV DECREASED GLUCOSE; Start 03/08/17 at 09:00 Dextrose (D50w Syringe) 50 ml Q15M PRN IV DECREASED GLUCOSE; Start 03/08/17 at 09:00 Glucagon (Glucagen) 1 mg Q15M PRN IM DECREASED GLUCOSE; Start 03/08/17 at 09:00 Glucose (Glutose) 15 gm Q15M PRN BUCCAL DECREASED GLUCOSE; Start 03/08/17 at 09 :00 Dexamethasone (Decadron) 1 mg ONCE ONCE PO ; Start 03/08/17 at 23:15; Stop at 23:16 Diagnostic Test (Pha) (Accu-Chek) 1 ea 02 XX ; Start 03/09/17 at 02:00 Diagnostic Test (Pha) (Accu-Chek) 1 ea 02 XX ; Start 03/09/17 at 02:00 Hydralazine HCl (Apresoline) 10 mg Q6H PRN IV sbp>160; Start 03/08/17 at 13:00 COLIN PAREDES MD Mar 08, 2017 13:08
[2017-03-08 13:20] LABS: ANA SCREEN NEGATIVE (NEGATIVE)
[2017-03-08 15:31] LABS: MYELOPEROXIDASE ANTIBODY <1.0 AI; PROTEINASE-3 ANTIBODY <1.0 AI
[2017-03-08] MEDS ORDERED: metFORMIN 500 MG TAB PO SCH (17:55)
[2017-03-08] MEDS: AMLODIPINE 10 MG TAB PO SCH (20:45)
[2017-03-08] MEDS: ZOLPIDEM 5 MG TAB PO PRN (20:52)
[2017-03-08] MEDS ORDERED: DOXAZOSIN 1 MG TAB PO SCH (21:00)
[2017-03-08] MEDS ORDERED: DEXAMETHASONE 1 MG TAB PO ONE (23:15)
[2017-03-09] VITALS (8 sets, daily range): BP systolic 141–197; BP diastolic 79–97; PULSE 78–89; RESP 16–20
[2017-03-09] MEDS ORDERED: ACCU-CHEK XX SCH (02:00)
[2017-03-09] MEDS: ACCU-CHEK XX SCH (02:53)
[2017-03-09] MEDS: HYDROmorphONE 0.2 MG/ML PCA IV SCH ×2 (07:07→10:36)
[2017-03-09 07:16] LABS: BASOPHILS % 0.3 % (0.0-2.0); EOSINOPHILS # 0.5 10^3/ul (0.0-0.5); EOSINOPHILS % 6.8 % (0.0-7.0); HEMATOCRIT 33.8 % (42.0-52.0); HEMOGLOBIN 11.4 g/dl (14.0-18.0); LYMPHOCYTES # 0.9 10^3/ul (0.8-2.9); LYMPHOCYTES % 13.2 % (15.0-51.0); MEAN CORPUSCULAR HEMOGLOBIN 32.1 pg (29.0-33.0); MEAN CORPUSCULAR HGB CONC 33.7 g/dl (32.0-37.0); MEAN CORPUSCULAR VOLUME 95.2 fl (82.0-101.0); MEAN PLATELET VOLUME 9.3 fl (7.4-10.4); MONOCYTE # 0.8 10^3/ul (0.3-0.9); MONOCYTES % 12.2 % (0.0-11.0); NEUTROPHILS % 67.1 % (39.0-77.0); PLATELET COUNT 293 10^3/UL (140-415); POSITIVE DIFF @See below; RED BLOOD COUNT 3.55 10^6/ul (4.70-6.10); RED CELL DISTRIBUTION WIDTH 13.4 % (11.5-14.5); WHITE BLOOD COUNT 6.7 10^3/ul (4.8-10.8)
[2017-03-09 07:38] LABS: CALCIUM 9.8 mg/dl (8.4-10.2); CREATININE 1.19 mg/dl (0.61-1.24); POTASSIUM 3.8 mmol/L (3.5-5.1)
[2017-03-09] MEDS: BACLOFEN 10 MG TAB PO SCH ×3 (09:45→21:25)
[2017-03-09] MEDS: SPIRONOLACTONE 25 MG TAB PO SCH (09:45)
[2017-03-09] MEDS: AMLODIPINE 10 MG TAB PO SCH ×2 (09:45→21:24)
[2017-03-09] MEDS: LABETALOL 200 MG TAB PO SCH ×2 (09:46→21:25)
[2017-03-09] MEDS: INSULIN ASPART [NOVOLOG] 3 ML PEN SC SCH ×4 (09:48→21:00)
--- NOTE | 2017-03-09 13:22 | PN ---
Date/Time of Note Date/Time of Note DATE: 03/09/17 TIME: 13:16 Assessment/Plan VTE Prophylaxis VTE Prophylaxis Intervention: SCD's Lines/Catheters IV C[facility]ter Type (from [facility] Urinary Cath still in place: No Assessment/Plan Chief Complaint/Hosp Course Assessment/Plan: 46-year-old male visiting from [place], who presents with: 1 right-sided flank pain with proteinuria and hematuria: Still with some right lower quadrant pain. 3+ hemoglobin found on UA. There was some bladder thickening found on CT scan as well. Appreciate renal and endocrine consults. Per renal team differential includes ATN vs Acute pre renal azotemia vs Acute Glomerulonephritis vs Hypertensive nephrosclerosis. -Continue IV fluid, follow-up 24-hour urine protein test, renal recommendations , endo rec's -Follow-up culture results -Pain management for today: will DC BLOGS MANAGER pump switched to IV as needed pain meds -Monitor for now, have requested urology consult. Concern about possible need to rule out bladder cancer. I spoke with urology team patient coordinator front desk 2 days ago, they indicated they will look at the CT scan of abdomen and pelvis, but recommend patient following up as outpatient in [place]. If the patient continues to have significant hematuria, likely he will need to be evaluated here as an inpatient for further urologic evaluation. But for now they are recommending patient follow-up as outpatient. 2. Hypertensive urgency -improved now. 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 Patient states he is compliant with his p.o. blood pressure medicines at home. -Continue home medications, calcium channel david twice daily, Aldactone, Cardura now (see # 4) 3. Adrenal nodule: Per evaluation from endocrinology team, this appears to be the source of patient's primary hyperaldosteronism. He apparently was diagnosed with this 3 years ago in [place] as well and treated with spironolactone at that time, however he lost follow-up to his director payer and with change of insurance, had changes made to his blood pressure medicines since then, and apparently has been off of this medicine for some time now -Follow-up aldosterone and plasma renin activity and serum tests as ordered by endocrinology team -Continue Aldactone, Cardura in addition to his other p.o. blood pressure medicines, monitor blood pressure -Follow-up results of urine metanephrine test (still pending). Problems: Subjective 24 Hr Interval Summary Free Text/Dictation Patient has less pain symptoms presently. Exam/Review of Systems Vital Signs Vitals Vital Signs Date Time Temp Pulse Resp B/P Pulse Ox O2 Delivery O2 Flow Rate FiO2 03/09/17 10:36 20 03/09/17 07:20 98.4 93 144/92 92 03/06/17 00:23 Room Air Intake and Output 03/08/17 03/08/17 03/09/17 15:00 23:00 07:00 Intake Total 1500 ml 900 ml Balance 1500 ml 900 ml Exam Constitutional: alert, oriented, in mild distress Head: atraumatic, normocephalic Eyes: EOMI, PERRL Neck: supple Respiratory: clear to auscultation, normal air movement Cardiovascular: nl pulses, regular rate and rhythm Gastrointestinal: less right flank tenderness, soft, tender Extremities: normal pulses Results Result Diagram: 03/09/17 0621 03/09/17 0620 Results 24 hrs Laboratory Tests Test 03/08/17 17:05 03/08/17 20:55 03/09/17 02:52 03/09/17 06:20 Bedside Glucose 179 198 210 Sodium Level 142 Potassium Level 3.8 Chloride Level 100 Carbon Dioxide Level 27 Anion Gap 19 H Blood Urea Nitrogen 16 Creatinine 1.19 Glucose Level 165 Calcium Level 9.8 Random Cortisol 4.5 Test 03/09/17 06:21 03/09/17 08:00 03/09/17 11:58 White Blood Count 6.7 Red Blood Count 3.55 L Hemoglobin 11.4 L Hematocrit 33.8 L Mean Corpuscular Volume 95.2 Mean Corpuscular Hemoglobin 32.1 Mean Corpuscular Hemoglobin Concent 33.7 Red Cell Distribution Width 13.4 Platelet Count 293 Mean Platelet Volume 9.3 Neutrophils % 67.1 Lymphocytes % 13.2 L Monocytes % 12.2 H Eosinophils % 6.8 Basophils % 0.3 Nucleated Red Blood Cells % 0.0 Neutrophils # (Manual) 5 Lymphocytes # 0.9 Monocytes # 0.8 Eosinophils # 0.5 Basophils # 0.0 Nucleated Red Blood Cells # 0.0 Bedside Glucose 166 179 Medications Medications Current Medications Ondansetron HCl (Zofran Inj) 4 mg Q6H PRN IV NAUSEA AND/OR VOMITING Last administered on 03/06/17t 08:27; Admin Dose 4 MG; Start 03/06/17 at 01:30 Diphenhydramine HCl (Benadryl) 25 mg Q6H PRN PO ITCHING Last administered on 01:31; Admin Dose 25 MG; Start 03/06/17 at 01:30 Hydralazine HCl (Apresoline) 10 mg Q4H PRN IV SBP>160 Last administered on 03/08 13:15; Admin Dose 10 MG; Start 03/06/17 at 01:30 Clonidine (Catapres) 0.2 mg BID PO Last administered on 03/09/17 09:45; Admin Dose 0.2 MG; Start 03/06/17 at 09:00 Labetalol HCl (Normodyne) 200 mg BID PO Last administered on 03/09/17 09:46; Admin Dose 200 MG; Start 03/06/17 at 09:00 Baclofen 10 mg 10 mg TID PO Last administered on 03/09/17 09:45; Admin Dose 10 MG; Start 03/06/17 at 11:30 Levofloxacin/ Dextrose (Levaquin 750 Mg/ D5W 150 ml (Pmx)) 150 ml @ 100 mls/hr Q48H IVPB Last administered on 03/07/17 14:08; Admin Dose 100 MLS/HR; Start at 14:00 Hydromorphone HCl (Dilaudid BLOGS MANAGER) 0.5MG/HR CONTINUOUS RATE ... Q4PCA IV Last administered on 03/09/17 10:36; Admin Dose 6 MG; Start 03/07/17 at 13:30 Doxazosin Mesylate (Cardura) 1 mg HS PO Last administered on 03/08/17 20:45; Admin Dose 1 MG; Start 03/08/17 at 21:00 Spironolactone (Aldactone) 25 mg DAILY PO Last administered on 03/09/17 09:45 ; Admin Dose 25 MG; Start 03/08/17 at 10:00 Miscellaneous Information 1 ea NOTE XX ; Start 03/08/17 at 09:00 Glucose (Glutose) 15 gm Q15M PRN PO DECREASED GLUCOSE; Start 03/08/17 at 09:00 Glucose (Glutose) 22.5 gm Q15M PRN PO DECREASED GLUCOSE; Start 03/08/17 at 09: 00 Dextrose (D50w Syringe) 25 ml Q15M PRN IV DECREASED GLUCOSE; Start 03/08/17 at 09:00 Dextrose (D50w Syringe) 50 ml Q15M PRN IV DECREASED GLUCOSE; Start 03/08/17 at 09:00 Glucagon (Glucagen) 1 mg Q15M PRN IM DECREASED GLUCOSE; Start 03/08/17 at 09:00 Glucose (Glutose) 15 gm Q15M PRN BUCCAL DECREASED GLUCOSE; Start 03/08/17 at 09 :00 Diagnostic Test (Pha) (Accu-Chek) 1 ea 02 XX Last administered on 03/09/17 02: 53; Admin Dose 1 EA; Start 03/09/17 at 02:00 Amlodipine Besylate (Norvasc) 10 mg BID PO Last administered on 03/09/17 09:45 ; Admin Dose 10 MG; Start 03/08/17 at 21:00 Hydralazine HCl (Apresoline) 25 mg Q8 PRN PO SBP>160 Last administered on 18:01; Admin Dose 25 MG; Start 03/08/17 at 18:00 HAZEL ALONZO Mar 09, 2017 13:22
[2017-03-09] MEDS: HYDROmorphONE 1 MG/ML SYG IV PRN ×4 (14:05→23:31)
[2017-03-09] MEDS: LEVOFLOXACIN 750MG/D5W (PMX) 150 ML IVPB SCH (14:33)
--- NOTE | 2017-03-09 15:00 | CONS ---
Date/Time of Note Date/Time of Note DATE: 03/09/17 TIME: 14:55 Assessment/Plan Assessment/Plan Chief Complaint/Hosp Course 46-year-old gentleman visiting [facility] from [place] on vacation. He developed pain and hematuria while visiting his aunt and required hospitalization. He reports that 3 years ago he was referred to an business services specialist sales in [place] for an asymmetry of his adrenal glands during the onset of significant hypertension. He has had issues with hypokalemia. He reports he ultimately had a needle biopsy was benign. However he also reports that he was told that selective sampling from the adrenal glands demonstrated the left adrenal gland have a level of 3 in the right adrenal gland will have a level of 750. He states that he was told that he had primary hyperaldosteronism. He initially was treated with Spironolactone with excellent control of his blood pressure. However he did not have any further follow-ups with the business services specialist sales and ultimately his insurance changed his provider. Subsequently the new providers opted to change him off of the Spironolactone and onto new medications. Since that time he has had difficult to control blood pressure Problems: (1) Adrenal nodule Status: Chronic Comment: His dexamethasone suppression test done in the acutely ill setting wall and a lot of pain count demonstrated an equivocal response. He will need outpatient follow 24 urinary total cortisol. (2) Proteinuria Status: Acute Comment: As per nephrology consult; consider MICHELINE inhibitor Qualifiers: Proteinuria type: unspecified Qualified Code: R80.9 - Proteinuria, unspecified type (3) Snoring Status: Chronic Comment: This is due to his weight and I believe represents a non-diagnosed case of obstructive sleep apnea. As I discussed with the patient before and again today weight loss would be significantly in his best interest (4) Primary hyperaldosteronism Status: Chronic Comment: He is on the spironolactone. (5) Hypertensive crisis Status: Acute Comment: His blood pressure still is not perfect. Please note that his catecholamine studies are pending. I am going to titrate up on the dosage of the alpha blockade to help with the blood pressure (6) Morbid obesity with BMI of 40.0-44.9, adult Status: Chronic Comment: Strongly re-counseled (7) Renal insufficiency Status: Acute Comment: He has reverted to baseline and has normal renal function (8) Diabetes mellitus type 2 in obese Status: Chronic Comment: His blood sugars are coming under line with low-dose metformin. I will go to medium dose metformin given the resolution of his kidney issues. Consultation Date/Type/Reason Admit Date/Time Mar 05, 2017 at 22:27 Initial Consult Date 03/07/17 Type of Consultation: Endocrinology Reason for Consultation Right adrenal nodule; new diagnosis diabetes mellitus type 2; primary hyperaldosteronism; morbid obesity; snoring with witnessed apneic spells Referring Provider: HAZEL ALONZO 24 HR Interval Summary Free Text/Dictation Patient was sleeping when I came in. Easily aroused Constitutional: no complaints (Wants to go home) Exam/Review of Systems Vital Signs Vitals Vital Signs Date Time Temp Pulse Resp B/P Pulse Ox O2 Delivery O2 Flow Rate FiO2 03/09/17 14:05 97.9 89 20 197/97 95 03/06/17 00:23 Room Air Intake and Output 03/08/17 03/08/17 03/09/17 15:00 23:00 07:00 Intake Total 1500 ml 900 ml Balance 1500 ml 900 ml Results Please note I witnessed him sleeping snoring with apneic spells these lasted roughly 5-15 seconds Result Diagram: 03/09/17 0621 03/09/17 0620 Results 24 hrs Laboratory Tests Test 03/08/17 17:05 03/08/17 20:55 03/09/17 02:52 03/09/17 06:20 Bedside Glucose 179 198 210 Sodium Level 142 Potassium Level 3.8 Chloride Level 100 Carbon Dioxide Level 27 Anion Gap 19 H Blood Urea Nitrogen 16 Creatinine 1.19 Glucose Level 165 Calcium Level 9.8 Random Cortisol 4.5 Test 03/09/17 06:21 03/09/17 08:00 03/09/17 11:58 White Blood Count 6.7 Red Blood Count 3.55 L Hemoglobin 11.4 L Hematocrit 33.8 L Mean Corpuscular Volume 95.2 Mean Corpuscular Hemoglobin 32.1 Mean Corpuscular Hemoglobin Concent 33.7 Red Cell Distribution Width 13.4 Platelet Count 293 Mean Platelet Volume 9.3 Neutrophils % 67.1 Lymphocytes % 13.2 L Monocytes % 12.2 H Eosinophils % 6.8 Basophils % 0.3 Nucleated Red Blood Cells % 0.0 Neutrophils # (Manual) 5 Lymphocytes # 0.9 Monocytes # 0.8 Eosinophils # 0.5 Basophils # 0.0 Nucleated Red Blood Cells # 0.0 Bedside Glucose 166 179 Medications Medications Current Medications Ondansetron HCl (Zofran Inj) 4 mg Q6H PRN IV NAUSEA AND/OR VOMITING Last administered on 03/06/17 08:27; Admin Dose 4 MG; Start 03/06/17 at 01:30 Diphenhydramine HCl (Benadryl) 25 mg Q6H PRN PO ITCHING Last administered on 01:31; Admin Dose 25 MG; Start 03/06/17 at 01:30 Hydralazine HCl (Apresoline) 10 mg Q4H PRN IV SBP>160 Last administered on 03/08 13:15; Admin Dose 10 MG; Start 03/06/17 at 01:30 Clonidine (Catapres) 0.2 mg BID PO Last administered on 03/09/17 09:45; Admin Dose 0.2 MG; Start 03/06/17 at 09:00 Labetalol HCl (Normodyne) 200 mg BID PO Last administered on 03/09/17 09:46; Admin Dose 200 MG; Start 03/06/17 at 09:00 Baclofen 10 mg 10 mg TID PO Last administered on 03/09/17 13:58; Admin Dose 10 MG; Start 03/06/17 at 11:30 Levofloxacin/ Dextrose (Levaquin 750 Mg/ D5W 150 ml (Pmx)) 150 ml @ 100 mls/hr Q48H IVPB Last administered on 03/09/17 14:33; Admin Dose 100 MLS/HR; Start at 14:00 Doxazosin Mesylate (Cardura) 1 mg HS PO Last administered on 03/08/17 20:45; Admin Dose 1 MG; Start 03/08/17 at 21:00 Spironolactone (Aldactone) 25 mg DAILY PO Last administered on 03/09/17 09:45 ; Admin Dose 25 MG; Start 03/08/17 at 10:00 Miscellaneous Information 1 ea NOTE XX ; Start 03/08/17 at 09:00 Glucose (Glutose) 15 gm Q15M PRN PO DECREASED GLUCOSE; Start 03/08/17 at 09:00 Glucose (Glutose) 22.5 gm Q15M PRN PO DECREASED GLUCOSE; Start 03/08/17 at 09: 00 Dextrose (D50w Syringe) 25 ml Q15M PRN IV DECREASED GLUCOSE; Start 03/08/17 at 09:00 Dextrose (D50w Syringe) 50 ml Q15M PRN IV DECREASED GLUCOSE; Start 03/08/17 at 09:00 Glucagon (Glucagen) 1 mg Q15M PRN IM DECREASED GLUCOSE; Start 03/08/17 at 09:00 Glucose (Glutose) 15 gm Q15M PRN BUCCAL DECREASED GLUCOSE; Start 03/08/17 at 09 :00 Diagnostic Test (Pha) (Accu-Chek) 1 ea 02 XX Last administered on 03/09/17 02: 53; Admin Dose 1 EA; Start 03/09/17 at 02:00 Amlodipine Besylate (Norvasc) 10 mg BID PO Last administered on 03/09/17 09:45 ; Admin Dose 10 MG; Start 03/08/17 at 21:00 Hydralazine HCl (Apresoline) 25 mg Q8 PRN PO SBP>160 Last administered on 18:01; Admin Dose 25 MG; Start 03/08/17 at 18:00 Hydromorphone HCl (Dilaudid) 1 mg Q3H PRN IV PAIN Last administered on 14:05; Admin Dose 1 MG; Start 03/09/17 at 13:30; Stop 03/10/17 at 13:30 Doxazosin Mesylate (Cardura) 1 mg ONCE ONCE PO ; Start 03/09/17 at 15:00; Stop 03/09/17 at 15:01; Status UNV Doxazosin Mesylate (Cardura) 2 mg HS PO ; Start 03/09/17 at 21:00; Status UNV LALO JOLLEY MD Mar 09, 2017 14:59
[2017-03-09] MEDS ORDERED: DOXAZOSIN 1 MG TAB PO ONE (16:00)
--- NOTE | 2017-03-09 16:25 | CONS ---
Date/Time of Note Date/Time of Note DATE: 03/09/17 TIME: 16:10 Assessment/Plan Assessment/Plan Additional Assessment/Plan 46-year-old male with a history of hypertension - 1. Acute kidney injury with bravo hematuria- Differential includes ATN vs Acute pre renal azotemia vs Acute Glomerulonephritis vs Hypertensive nephrosclerosis 2. Hypertensive emergency 3. Hematuria,Bravo 4. h/o HTN 5. Morbid obesity 6. Possible UTI/Pyelonephritis 7. DM-2 Plan: Pt has been on IV abx for cystitis/pyelonephritis but he has less convincing evidence of UTI. No urine culture has been sent. - On admission Cr 1.76 with Ca 11. As of today- Cr 1.19 with Ca 9.8 - 3 + protein and More than 120 RBC on UA without any significant evidnece of uTI- his differential diagnosis for Osito includes ATN vs Acute pre renal azotemia vs Acute Glomerulonephritis vs Hypertnsive nephrosclerosis - No previous Cr available, pt denies any PMHx of CKD. no NSAID use, no Family h /o renal disease - IV abx for UTI- renally dose abx - BP control, goal BP<140/80- increase amlodipine to 10mg PO BID,, IV hydralazine prn , need better BP control prior to discharge - Renal US showed left renal cysts, C/w medical renal disease - CKD and GN work up has been sent, will follow up as outpatient Dw Dr Britta Godinez Consultation Date/Type/Reason Admit Date/Time Mar 05, 2017 at 22:27 Initial Consult Date 03/07/17 Type of Consultation: Endocrinology Referring Provider: HAZEL ALONZO 24 HR Interval Summary Free Text/Dictation resting, newly diagnosed DaibetesC/O right flank pain, afebrile, reported hematuria per staff, dw staff Exam/Review of Systems Vital Signs Vitals Vital Signs Date Time Temp Pulse Resp B/P Pulse Ox O2 Delivery O2 Flow Rate FiO2 03/09/17 14:05 97.9 89 20 197/97 95 03/06/17 00:23 Room Air Intake and Output 03/08/17 03/08/17 03/09/17 15:00 23:00 07:00 Intake Total 1500 ml 900 ml Balance 1500 ml 900 ml Exam Constitutional: alert Respiratory: clear to auscultation Cardiovascular: nl pulses, regular rate and rhythm Musculoskeletal: nl extremities to inspection Extremities: normal pulses Neurological: nl mental status, nl speech Results Result Diagram: 03/09/17 0621 03/09/17 0620 Results 24 hrs Laboratory Tests Test 03/08/17 17:05 03/08/17 20:55 03/09/17 02:52 03/09/17 06:20 Bedside Glucose 179 198 210 Sodium Level 142 Potassium Level 3.8 Chloride Level 100 Carbon Dioxide Level 27 Anion Gap 19 H Blood Urea Nitrogen 16 Creatinine 1.19 Glucose Level 165 Calcium Level 9.8 Random Cortisol 4.5 Test 03/09/17 06:21 03/09/17 08:00 03/09/17 11:58 White Blood Count 6.7 Red Blood Count 3.55 L Hemoglobin 11.4 L Hematocrit 33.8 L Mean Corpuscular Volume 95.2 Mean Corpuscular Hemoglobin 32.1 Mean Corpuscular Hemoglobin Concent 33.7 Red Cell Distribution Width 13.4 Platelet Count 293 Mean Platelet Volume 9.3 Neutrophils % 67.1 Lymphocytes % 13.2 L Monocytes % 12.2 H Eosinophils % 6.8 Basophils % 0.3 Nucleated Red Blood Cells % 0.0 Neutrophils # (Manual) 5 Lymphocytes # 0.9 Monocytes # 0.8 Eosinophils # 0.5 Basophils # 0.0 Nucleated Red Blood Cells # 0.0 Bedside Glucose 166 179 Medications Medications Current Medications Ondansetron HCl (Zofran Inj) 4 mg Q6H PRN IV NAUSEA AND/OR VOMITING Last administered on 03/06/17 08:27; Admin Dose 4 MG; Start 03/06/17 at 01:30 Diphenhydramine HCl (Benadryl) 25 mg Q6H PRN PO ITCHING Last administered on 01:31; Admin Dose 25 MG; Start 03/06/17 at 01:30 Hydralazine HCl (Apresoline) 10 mg Q4H PRN IV SBP>160 Last administered on 03/08 13:15; Admin Dose 10 MG; Start 03/06/17 at 01:30 Clonidine (Catapres) 0.2 mg BID PO Last administered on 03/09/17 09:45; Admin Dose 0.2 MG; Start 03/06/17 at 09:00 Labetalol HCl (Normodyne) 200 mg BID PO Last administered on 03/09/17 09:46; Admin Dose 200 MG; Start 03/06/17 at 09:00 Baclofen 10 mg 10 mg TID PO Last administered on 03/09/17 13:58; Admin Dose 10 MG; Start 03/06/17 at 11:30 Levofloxacin/ Dextrose (Levaquin 750 Mg/ D5W 150 ml (Pmx)) 150 ml @ 100 mls/hr Q48H IVPB Last administered on 03/09/17 14:33; Admin Dose 100 MLS/HR; Start at 14:00 Doxazosin Mesylate (Cardura) 1 mg HS PO Last administered on 03/08/17 20:45; Admin Dose 1 MG; Start 03/08/17 at 21:00 Spironolactone (Aldactone) 25 mg DAILY PO Last administered on 03/09/17 09:45 ; Admin Dose 25 MG; Start 03/08/17 at 10:00 Miscellaneous Information 1 ea NOTE XX ; Start 03/08/17 at 09:00 Glucose (Glutose) 15 gm Q15M PRN PO DECREASED GLUCOSE; Start 03/08/17 at 09:00 Glucose (Glutose) 22.5 gm Q15M PRN PO DECREASED GLUCOSE; Start 03/08/17 at 09: 00 Dextrose (D50w Syringe) 25 ml Q15M PRN IV DECREASED GLUCOSE; Start 03/08/17 at 09:00 Dextrose (D50w Syringe) 50 ml Q15M PRN IV DECREASED GLUCOSE; Start 03/08/17 at 09:00 Glucagon (Glucagen) 1 mg Q15M PRN IM DECREASED GLUCOSE; Start 03/08/17 at 09:00 Glucose (Glutose) 15 gm Q15M PRN BUCCAL DECREASED GLUCOSE; Start 03/08/17 at 09 :00 Diagnostic Test (Pha) (Accu-Chek) 1 ea 02 XX Last administered on 03/09/17 02: 53; Admin Dose 1 EA; Start 03/09/17 at 02:00 Amlodipine Besylate (Norvasc) 10 mg BID PO Last administered on 03/09/17 09:45 ; Admin Dose 10 MG; Start 03/08/17 at 21:00 Hydralazine HCl (Apresoline) 25 mg Q8 PRN PO SBP>160 Last administered on 18:01; Admin Dose 25 MG; Start 03/08/17 at 18:00 Hydromorphone HCl (Dilaudid) 1 mg Q3H PRN IV PAIN Last administered on 14:05; Admin Dose 1 MG; Start 03/09/17 at 13:30; Stop 03/10/17 at 13:30 Doxazosin Mesylate (Cardura) 2 mg HS PO ; Start 03/09/17 at 21:00 SCOTT HERRON Mar 09, 2017 16:20 53; Admin Dose 1 EA; Start 03/09/17 at 02:00 Amlodipine Besylate (Norvasc) 10 mg BID PO Last administered on 03/09/17 09:45 ; Admin Dose 10 MG; Start 03/08/17 at 21:00 Hydralazine HCl (Apresoline) 25 mg Q8 PRN PO SBP>160 Last administered on 18:01; Admin Dose 25 MG; Start 03/08/17 at 18:00 Hydromorphone HCl (Dilaudid) 1 mg Q3H PRN IV PAIN Last administered on 14:05; Admin Dose 1 MG; Start 03/09/17 at 13:30; Stop 03/10/17 at 13:30 Doxazosin Mesylate (Cardura) 2 mg HS PO ; Start 03/09/17 at 21:00 SCOTT HERRON Mar 09, 2017 16:20
[2017-03-09] MEDS: metFORMIN 500 MG TAB PO SCH (17:18)
[2017-03-09] MEDS: ONDANSETRON 4 MG INJ IV PRN (17:24)
[2017-03-09] MEDS ORDERED: DOXAZOSIN 2 MG TAB PO SCH (21:00)
[2017-03-09] MEDS: ZOLPIDEM 5 MG TAB PO PRN (21:24)
[2017-03-10] MEDS: ACCU-CHEK XX SCH (02:00)
[2017-03-10 03:01] VITALS: BP 146/81; RESP 16
[2017-03-10 06:09] LABS: BASOPHILS % 0.2 % (0.0-2.0); EOSINOPHILS # 0.3 10^3/ul (0.0-0.5); EOSINOPHILS % 4.7 % (0.0-7.0); HEMATOCRIT 31.2 % (42.0-52.0); HEMOGLOBIN 10.8 g/dl (14.0-18.0); LYMPHOCYTES # 0.9 10^3/ul (0.8-2.9); LYMPHOCYTES % 16.2 % (15.0-51.0); MEAN CORPUSCULAR HEMOGLOBIN 32.4 pg (29.0-33.0); MEAN CORPUSCULAR HGB CONC 34.6 g/dl (32.0-37.0); MEAN CORPUSCULAR VOLUME 93.7 fl (82.0-101.0); MEAN PLATELET VOLUME 8.1 fl (7.4-10.4); MONOCYTE # 0.8 10^3/ul (0.3-0.9); MONOCYTES % 13.7 % (0.0-11.0); NEUTROPHILS % 64.8 % (39.0-77.0); PLATELET COUNT 279 10^3/UL (140-415); RED BLOOD COUNT 3.33 10^6/ul (4.70-6.10); RED CELL DISTRIBUTION WIDTH 13.6 % (11.5-14.5); WHITE BLOOD COUNT 5.6 10^3/ul (4.8-10.8)
[2017-03-10 06:33] LABS: CALCIUM 9.9 mg/dl (8.4-10.2); CREATININE 1.17 mg/dl (0.61-1.24); POTASSIUM 3.4 mmol/L (3.5-5.1)
[2017-03-10] MEDS: HYDROmorphONE 1 MG/ML SYG IV PRN ×5 (06:35→21:13)
[2017-03-10 08:00] VITALS: BP 168/72; RESP 18
[2017-03-10] MEDS: metFORMIN 500 MG TAB PO SCH ×2 (08:24→17:14)
[2017-03-10] MEDS: INSULIN ASPART [NOVOLOG] 3 ML PEN SC SCH ×4 (08:31→20:18)
[2017-03-10] MEDS: LABETALOL 200 MG TAB PO SCH ×2 (09:08→21:00)
[2017-03-10] MEDS: BACLOFEN 10 MG TAB PO SCH ×3 (09:08→21:01)
[2017-03-10] MEDS: AMLODIPINE 10 MG TAB PO SCH (09:08)
[2017-03-10] MEDS: SPIRONOLACTONE 25 MG TAB PO SCH (09:08)
[2017-03-10] MEDS ORDERED: POTASSIUM CHLORIDE (SR) 20 MEQ TAB PO STA (11:13)
--- NOTE | 2017-03-10 11:21 | CONS ---
Date/Time of Note Date/Time of Note DATE: 03/10/17 TIME: 11:17 Assessment/Plan Assessment/Plan Chief Complaint/Hosp Course 46-year-old gentleman visiting [facility] from [place] on vacation. He developed pain and hematuria while visiting his aunt and required hospitalization. He reports that 3 years ago he was referred to an coal pipeline operator in [place] for an asymmetry of his adrenal glands during the onset of significant hypertension. He has had issues with hypokalemia. He reports he ultimately had a needle biopsy was benign. However he also reports that he was told that selective sampling from the adrenal glands demonstrated the left adrenal gland have a level of 3 in the right adrenal gland will have a level of 750. He states that he was told that he had primary hyperaldosteronism. He initially was treated with Spironolactone with excellent control of his blood pressure. However he did not have any further follow-ups with the coal pipeline operator and ultimately his insurance changed his provider. Subsequently the new providers opted to change him off of the Spironolactone and onto new medications. Since that time he has had difficult to control blood pressure Problems: (1) Diabetes mellitus type 2 in obese Status: Chronic Comment: His control is adequate on current medication regimen. At this time I would not push up on the medications but simply follow along and allow him to work on weight loss which will tighten this up. (2) Adrenal nodule Status: Chronic Comment: This is had a prior workup. At this time he will need a repeat 24- hour urinary free cortisol as an outpatient; if this is primary hyperaldosteronism will respond to the Aldactone would probably actually be a reasonable response to having surgical resection of the nodule. If it is a pheochromocytoma then the doxazosin will work for this. I do not believe this represents a Vitaliy (3) Snoring Status: Chronic Comment: This is part and parcel of his obesity. He will need a diagnostic study for sleep apnea as an outpatient (4) Morbid obesity with BMI of 40.0-44.9, adult Status: Chronic Comment: I have re-counseled the patient again today about the benefits of 10% weight loss. Even a 5% body mass reduction would have tremendous metabolic improvements (5) Primary hyperaldosteronism Status: Chronic Comment: Adjust upward on the dosage of Spironolactone 50 mg a day. Please note we do not have eplerenone on our formulary (6) Renal insufficiency Status: Resolved Comment: Fully resolved (7) Hypertensive crisis Status: Acute Comment: His blood pressure is coming under control with a combination of medication. (8) Proteinuria Status: Acute Comment: As per nephrology. Qualifiers: Proteinuria type: unspecified Qualified Code: R80.9 - Proteinuria, unspecified type Consultation Date/Type/Reason Admit Date/Time Mar 05, 2017 at 22:27 Initial Consult Date 03/07/17 Type of Consultation: Endocrinology Reason for Consultation Hypertension with hypokalemia right adrenal nodule history primary hyperaldosteronism BPH and new diagnosis diabetes mellitus type 2 in the setting of morbid obesity Referring Provider: HAZEL ALONZO 24 HR Interval Summary Free Text/Dictation Patient reports his pain is somewhat better. Constitutional: no complaints Detailed Summary Respiratory: no complaints Cardiovascular: no complaints Gastrointestinal: no complaints Exam/Review of Systems Vital Signs Vitals Vital Signs Date Time Temp Pulse Resp B/P Pulse Ox O2 Delivery O2 Flow Rate FiO2 03/10/17 08:00 98.8 64 18 168/72 96 Intake and Output 03/09/17 03/09/17 03/10/17 15:00 23:00 07:00 Intake Total 1340 ml 680 ml Balance 1340 ml 680 ml Results No change in exam Result Diagram: 03/10/17 0541 03/10/17 0541 Results 24 hrs Laboratory Tests Test 03/09/17 11:58 03/09/17 17:16 03/09/17 21:29 03/10/17 05:41 Bedside Glucose 179 159 169 White Blood Count 5.6 Red Blood Count 3.33 L Hemoglobin 10.8 L Hematocrit 31.2 L Mean Corpuscular Volume 93.7 Mean Corpuscular Hemoglobin 32.4 Mean Corpuscular Hemoglobin Concent 34.6 Red Cell Distribution Width 13.6 Platelet Count 279 Mean Platelet Volume 8.1 Neutrophils % 64.8 Lymphocytes % 16.2 Monocytes % 13.7 H Eosinophils % 4.7 Basophils % 0.2 Nucleated Red Blood Cells % 0.0 Neutrophils # (Manual) 4 Lymphocytes # 0.9 Monocytes # 0.8 Eosinophils # 0.3 Basophils # 0.0 Nucleated Red Blood Cells # 0.0 Sodium Level 143 Potassium Level 3.4 L Chloride Level 96 L Carbon Dioxide Level 32 H Anion Gap 18 H Blood Urea Nitrogen 14 Creatinine 1.17 Glucose Level 149 Calcium Level 9.9 Test 03/10/17 08:23 Bedside Glucose 202 Medications Medications Current Medications Ondansetron HCl (Zofran Inj) 4 mg Q6H PRN IV NAUSEA AND/OR VOMITING Last administered on 03/09/17 17:24; Admin Dose 4 MG; Start 03/06/17 at 01:30 Diphenhydramine HCl (Benadryl) 25 mg Q6H PRN PO ITCHING Last administered on 01:31; Admin Dose 25 MG; Start 03/06/17 at 01:30 Hydralazine HCl (Apresoline) 10 mg Q4H PRN IV SBP>160 Last administered on 03/08 13:15; Admin Dose 10 MG; Start 03/06/17 at 01:30 Clonidine (Catapres) 0.2 mg BID PO Last administered on 03/10/17 09:12; Admin Dose 0.2 MG; Start 03/06/17 at 09:00 Labetalol HCl (Normodyne) 200 mg BID PO Last administered on 03/10/17 09:08; Admin Dose 200 MG; Start 03/06/17 at 09:00 Baclofen 10 mg 10 mg TID PO Last administered on 03/10/17 09:08; Admin Dose 10 MG; Start 03/06/17 at 11:30 Levofloxacin/ Dextrose (Levaquin 750 Mg/ D5W 150 ml (Pmx)) 150 ml @ 100 mls/hr Q48H IVPB Last administered on 03/09/17 14:33; Admin Dose 100 MLS/HR; Start at 14:00 Spironolactone (Aldactone) 25 mg DAILY PO Last administered on 03/10/17 09:08 ; Admin Dose 25 MG; Start 03/08/17 at 10:00 Miscellaneous Information 1 ea NOTE XX ; Start 03/08/17 at 09:00 Glucose (Glutose) 15 gm Q15M PRN PO DECREASED GLUCOSE; Start 03/08/17 at 09:00 Glucose (Glutose) 22.5 gm Q15M PRN PO DECREASED GLUCOSE; Start 03/08/17 at 09: 00 Dextrose (D50w Syringe) 25 ml Q15M PRN IV DECREASED GLUCOSE; Start 03/08/17 at 09:00 Dextrose (D50w Syringe) 50 ml Q15M PRN IV DECREASED GLUCOSE; Start 03/08/17 at 09:00 Glucagon (Glucagen) 1 mg Q15M PRN IM DECREASED GLUCOSE; Start 03/08/17 at 09:00 Glucose (Glutose) 15 gm Q15M PRN BUCCAL DECREASED GLUCOSE; Start 03/08/17 at 09 :00 Diagnostic Test (Pha) (Accu-Chek) 1 ea 02 XX Last administered on 03/09/17 02: 53; Admin Dose 1 EA; Start 03/09/17 at 02:00 Amlodipine Besylate (Norvasc) 10 mg BID PO Last administered on 03/10/17 09:08 ; Admin Dose 10 MG; Start 03/08/17 at 21:00 Hydralazine HCl (Apresoline) 25 mg Q8 PRN PO SBP>160 Last administered on 18:01; Admin Dose 25 MG; Start 03/08/17 at 18:00 Hydromorphone HCl (Dilaudid) 1 mg Q3H PRN IV PAIN Last administered on 10:38; Admin Dose 1 MG; Start 03/09/17 at 13:30; Stop 03/10/17 at 13:30 Doxazosin Mesylate (Cardura) 2 mg HS PO Last administered on 03/09/17 21:24; Admin Dose 2 MG; Start 03/09/17 at 21:00 LALO JOLLEY MD Mar 10, 2017 11:21
[2017-03-10] MEDS ORDERED: SPIRONOLACTONE 25 MG TAB PO ONE (11:30)
[2017-03-10] MEDS ORDERED: DOXAZOSIN 2 MG TAB PO ONE (11:30)
--- NOTE | 2017-03-10 13:58 | CONS ---
Date/Time of Note Date/Time of Note DATE: 03/10/17 TIME: 13:55 Assessment/Plan Assessment/Plan Additional Assessment/Plan 46-year-old male with a history of hypertension - 1. Acute kidney injury with bravo hematuria- Differential includes ATN vs Acute pre renal azotemia vs Acute Glomerulonephritis vs Hypertensive nephrosclerosis 2. Hypertensive emergency 3. Hematuria,Bravo 4. h/o HTN 5. Morbid obesity 6. Possible UTI/Pyelonephritis 7. DM-2 8. Hypokalemia- replete K, bmp am Plan: Pt has been on IV abx for cystitis/pyelonephritis but he has less convincing evidence of UTI. No urine culture has been sent. - On admission Cr 1.76 with Ca 11. As of today- Cr 1.17 with Ca 9.9 - 3 + protein and More than 120 RBC on UA without any significant evidnece of uTI- his differential diagnosis for Os[place] includes ATN vs Acute pre renal azotemia vs Acute Glomerulonephritis vs Hypertnsive nephrosclerosis - No previous Cr available, pt denies any PMHx of CKD. no NSAID use, no Family h /o renal disease - IV abx for UTI- renally dose abx - BP control, goal BP<140/80- increase amlodipine to 10mg PO BID,, IV hydralazine prn , need better BP control prior to discharge - Renal US showed left renal cysts, C/w medical renal disease - CKD and GN work up has been sent, will follow up as outpatient Dw Dr Britta Godinez Consultation Date/Type/Reason Admit Date/Time Mar 05, 2017 at 22:27 Initial Consult Date 03/07/17 Type of Consultation: Endocrinology Referring Provider: HAZEL ALONZO 24 HR Interval Summary Free Text/Dictation sleepy, difficult to be awake, seems comfortable. denies any complaints, dw staff Exam/Review of Systems Vital Signs Vitals Vital Signs Date Time Temp Pulse Resp B/P Pulse Ox O2 Delivery O2 Flow Rate FiO2 03/10/17 08:00 98.8 64 18 168/72 96 Intake and Output 03/09/17 03/09/17 03/10/17 15:00 23:00 07:00 Intake Total 1340 ml 680 ml Balance 1340 ml 680 ml Exam Constitutional: alert, oriented, well developed Respiratory: clear to auscultation, normal air movement Cardiovascular: nl pulses, regular rate and rhythm Gastrointestinal: non-tender, soft Musculoskeletal: nl extremities to inspection Extremities: normal pulses Neurological: nl mental status Results Result Diagram: 03/10/17 0541 03/10/17 0541 Results 24 hrs Laboratory Tests Test 03/09/17 17:16 03/09/17 21:29 03/10/17 05:41 03/10/17 08:23 Bedside Glucose 159 169 202 White Blood Count 5.6 Red Blood Count 3.33 L Hemoglobin 10.8 L Hematocrit 31.2 L Mean Corpuscular Volume 93.7 Mean Corpuscular Hemoglobin 32.4 Mean Corpuscular Hemoglobin Concent 34.6 Red Cell Distribution Width 13.6 Platelet Count 279 Mean Platelet Volume 8.1 Neutrophils % 64.8 Lymphocytes % 16.2 Monocytes % 13.7 H Eosinophils % 4.7 Basophils % 0.2 Nucleated Red Blood Cells % 0.0 Neutrophils # (Manual) 4 Lymphocytes # 0.9 Monocytes # 0.8 Eosinophils # 0.3 Basophils # 0.0 Nucleated Red Blood Cells # 0.0 Sodium Level 143 Potassium Level 3.4 L Chloride Level 96 L Carbon Dioxide Level 32 H Anion Gap 18 H Blood Urea Nitrogen 14 Creatinine 1.17 Glucose Level 149 Calcium Level 9.9 Test 03/10/17 11:58 Bedside Glucose 138 Medications Medications Current Medications Ondansetron HCl (Zofran Inj) 4 mg Q6H PRN IV NAUSEA AND/OR VOMITING Last administered on 03/09/17 17:24; Admin Dose 4 MG; Start 03/06/17 at 01:30 Diphenhydramine HCl (Benadryl) 25 mg Q6H PRN PO ITCHING Last administered on 01:31; Admin Dose 25 MG; Start 03/06/17 at 01:30 Hydralazine HCl (Apresoline) 10 mg Q4H PRN IV SBP>160 Last administered on 03/08 13:15; Admin Dose 10 MG; Start 03/06/17 at 01:30 Clonidine (Catapres) 0.2 mg BID PO Last administered on 03/10/17 09:12; Admin Dose 0.2 MG; Start 03/06/17 at 09:00 Labetalol HCl (Normodyne) 200 mg BID PO Last administered on 03/10/17 09:08; Admin Dose 200 MG; Start 03/06/17 at 09:00 Baclofen 10 mg 10 mg TID PO Last administered on 03/10/17 11:55; Admin Dose 10 MG; Start 03/06/17 at 11:30 Levofloxacin/ Dextrose (Levaquin 750 Mg/ D5W 150 ml (Pmx)) 150 ml @ 100 mls/hr Q48H IVPB Last administered on 03/09/17 14:33; Admin Dose 100 MLS/HR; Start at 14:00 Miscellaneous Information 1 ea NOTE XX ; Start 03/08/17 at 09:00 Glucose (Glutose) 15 gm Q15M PRN PO DECREASED GLUCOSE; Start 03/08/17 at 09:00 Glucose (Glutose) 22.5 gm Q15M PRN PO DECREASED GLUCOSE; Start 03/08/17 at 09: 00 Dextrose (D50w Syringe) 25 ml Q15M PRN IV DECREASED GLUCOSE; Start 03/08/17 at 09:00 Dextrose (D50w Syringe) 50 ml Q15M PRN IV DECREASED GLUCOSE; Start 03/08/17 at 09:00 Glucagon (Glucagen) 1 mg Q15M PRN IM DECREASED GLUCOSE; Start 03/08/17 at 09:00 Glucose (Glutose) 15 gm Q15M PRN BUCCAL DECREASED GLUCOSE; Start 03/08/17 at 09 :00 Diagnostic Test (Pha) (Accu-Chek) 1 ea 02 XX Last administered on 03/09/17 02: 53; Admin Dose 1 EA; Start 03/09/17 at 02:00 Amlodipine Besylate (Norvasc) 10 mg BID PO Last administered on 03/10/17 09:08 ; Admin Dose 10 MG; Start 03/08/17 at 21:00 Hydralazine HCl (Apresoline) 25 mg Q8 PRN PO SBP>160 Last administered on 18:01; Admin Dose 25 MG; Start 03/08/17 at 18:00 Doxazosin Mesylate (Cardura) 4 mg HS PO ; Start 03/10/17 at 21:00 Spironolactone (Aldactone) 50 mg DAILY PO ; Start 03/11/17 at 09:00 SCOTT HERRON Mar 10, 2017 13:58
--- NOTE | 2017-03-10 13:59 | PN ---
Date/Time of Note Date/Time of Note DATE: 03/10/17 TIME: 13:53 Assessment/Plan VTE Prophylaxis VTE Prophylaxis Intervention: SCD's Lines/Catheters IV Catheter Type (from [facility] Sal[facility] Lock Urinary Cath still in place: No Assessment/Plan Chief Complaint/Hosp Course Assessment/Plan: 46-year-old male visiting from [place], who presents with: 1 right-sided flank pain with proteinuria and hematuria: Still with some right lower quadrant pain. 3+ hemoglobin found on UA. There was some bladder thickening found on CT scan as well. Appreciate renal and endocrine consults. Per renal team differential includes ATN vs Acute pre renal azotemia vs Acute Glomerulonephritis vs Hypertensive nephrosclerosis. -Continue IV fluid, follow-up 24-hour urine protein test, renal recommendations , endo rec's -Follow-up culture results -Pain management Dilaudid IV every 4 as needed, will need to make this less frequent every 24 hours or so -Monitor for now, have requested urology consult. Concern about possible need to rule out bladder cancer. I spoke with urology team fire investigation lieutenant 3 days ago, they indicated they will look at the CT scan of abdomen and pelvis, but recommend patient following up as outpatient in [place]. If the patient continues to have significant hematuria, likely he will need to be evaluated here as an inpatient for further urologic evaluation. But for now they are recommending patient follow-up as outpatient. 2. Hypertensive urgency -improved now, although slightly more elevated today. 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 Patient states he is compliant with his p.o. blood pressure medicines at home. -Continue home medications, calcium channel david twice daily, Aldactone, Cardura now (see # 4) 3. Adrenal nodule: Per evaluation from endocrinology team, this appears to be the source of patient's primary hyperaldosteronism. He apparently was diagnosed with this 3 years ago in [place] as well and treated with spironolactone at that time, however he lost follow-up to his construction materials tester and with change of insurance, had changes made to his blood pressure medicines since then, and apparently has been off of this medicine for some time now. -At this time per endocrinology team he will need a repeat 24-hour urinary free cortisol as an outpatient; if this is primary hyperaldosteronism he will respond to the Aldactone would probably actually be a reasonable response to having surgical resection of the nodule. If it is a pheochromocytoma then the doxazosin will work for this. Endocrinology team does not believe this represents a pheo. -Follow-up aldosterone and plasma renin activity and serum tests as ordered by endocrinology team -Continue Aldactone, Cardura in addition to his other p.o. blood pressure medicines, monitor blood pressure -Follow-up results of urine metanephrine test (still pending). Problems: Subjective 24 Hr Interval Summary Free Text/Dictation No acute events overnight, seen by endocrinology and renal teams. Exam/Review of Systems Vital Signs Vitals Vital Signs Date Time Temp Pulse Resp B/P Pulse Ox O2 Delivery O2 Flow Rate FiO2 03/10/17 08:00 98.8 64 18 168/72 96 Intake and Output 03/09/17 03/09/17 03/10/17 15:00 23:00 07:00 Intake Total 1340 ml 680 ml Balance 1340 ml 680 ml Exam Constitutional: alert, oriented, in mild distress Head: atraumatic, normocephalic Eyes: EOMI, PERRL Neck: supple Respiratory: clear to auscultation, normal air movement Cardiovascular: nl pulses, regular rate and rhythm Gastrointestinal: less right flank tenderness, soft, tender Extremities: normal pulses Results Result Diagram: 03/10/17 0541 03/10/17 0541 Results 24 hrs Laboratory Tests Test 03/09/17 17:16 03/09/17 21:29 03/10/17 05:41 03/10/17 08:23 Bedside Glucose 159 169 202 White Blood Count 5.6 Red Blood Count 3.33 L Hemoglobin 10.8 L Hematocrit 31.2 L Mean Corpuscular Volume 93.7 Mean Corpuscular Hemoglobin 32.4 Mean Corpuscular Hemoglobin Concent 34.6 Red Cell Distribution Width 13.6 Platelet Count 279 Mean Platelet Volume 8.1 Neutrophils % 64.8 Lymphocytes % 16.2 Monocytes % 13.7 H Eosinophils % 4.7 Basophils % 0.2 Nucleated Red Blood Cells % 0.0 Neutrophils # (Manual) 4 Lymphocytes # 0.9 Monocytes # 0.8 Eosinophils # 0.3 Basophils # 0.0 Nucleated Red Blood Cells # 0.0 Sodium Level 143 Potassium Level 3.4 L Chloride Level 96 L Carbon Dioxide Level 32 H Anion Gap 18 H Blood Urea Nitrogen 14 Creatinine 1.17 Glucose Level 149 Calcium Level 9.9 Test 03/10/17 11:58 Bedside Glucose 138 Medications Medications Current Medications Ondansetron HCl (Zofran Inj) 4 mg Q6H PRN IV NAUSEA AND/OR VOMITING Last administered on 03/09/17 17:24; Admin Dose 4 MG; Start 03/06/17 at 01:30 Diphenhydramine HCl (Benadryl) 25 mg Q6H PRN PO ITCHING Last administered on 01:31; Admin Dose 25 MG; Start 03/06/17 at 01:30 Hydralazine HCl (Apresoline) 10 mg Q4H PRN IV SBP>160 Last administered on 03/08 13:15; Admin Dose 10 MG; Start 03/06/17 at 01:30 Clonidine (Catapres) 0.2 mg BID PO Last administered on 03/10/17 09:12; Admin Dose 0.2 MG; Start 03/06/17 at 09:00 Labetalol HCl (Normodyne) 200 mg BID PO Last administered on 03/10/17 09:08; Admin Dose 200 MG; Start 03/06/17 at 09:00 Baclofen 10 mg 10 mg TID PO Last administered on 03/10/17 11:55; Admin Dose 10 MG; Start 03/06/17 at 11:30 Levofloxacin/ Dextrose (Levaquin 750 Mg/ D5W 150 ml (Pmx)) 150 ml @ 100 mls/hr Q48H IVPB Last administered on 03/09/17 14:33; Admin Dose 100 MLS/HR; Start at 14:00 Miscellaneous Information 1 ea NOTE XX ; Start 03/08/17 at 09:00 Glucose (Glutose) 15 gm Q15M PRN PO DECREASED GLUCOSE; Start 03/08/17 at 09:00 Glucose (Glutose) 22.5 gm Q15M PRN PO DECREASED GLUCOSE; Start 03/08/17 at 09: 00 Dextrose (D50w Syringe) 25 ml Q15M PRN IV DECREASED GLUCOSE; Start 03/08/17 at 09:00 Dextrose (D50w Syringe) 50 ml Q15M PRN IV DECREASED GLUCOSE; Start 03/08/17 at 09:00 Glucagon (Glucagen) 1 mg Q15M PRN IM DECREASED GLUCOSE; Start 03/08/17 at 09:00 Glucose (Glutose) 15 gm Q15M PRN BUCCAL DECREASED GLUCOSE; Start 03/08/17 at 09 :00 Diagnostic Test (Pha) (Accu-Chek) 1 ea 02 XX Last administered on 03/09/17 02: 53; Admin Dose 1 EA; Start 03/09/17 at 02:00 Amlodipine Besylate (Norvasc) 10 mg BID PO Last administered on 03/10/17 09:08 ; Admin Dose 10 MG; Start 03/08/17 at 21:00 Hydralazine HCl (Apresoline) 25 mg Q8 PRN PO SBP>160 Last administered on 18:01; Admin Dose 25 MG; Start 03/08/17 at 18:00 Doxazosin Mesylate (Cardura) 4 mg HS PO ; Start 03/10/17 at 21:00 Spironolactone (Aldactone) 50 mg DAILY PO ; Start 03/11/17 at 09:00 HAZEL ALONZO Mar 10, 2017 13:59
[2017-03-10 14:10] VITALS: BP 171/87; RESP 18
[2017-03-10] MEDS ORDERED: NIFEdipine (XL) 60 MG TAB PO ONE (17:30)
[2017-03-10 20:43] VITALS: BP 189/95; RESP 20
[2017-03-10] MEDS: DOXAZOSIN 4 MG TAB PO SCH (21:02)
[2017-03-10] MEDS: ZOLPIDEM 5 MG TAB PO PRN (22:13)
[2017-03-11] MEDS: ACCU-CHEK XX SCH (02:00)
[2017-03-11 02:53] VITALS: BP 121/66; RESP 22
[2017-03-11] MEDS: HYDROmorphONE 1 MG/ML SYG IV PRN ×2 (03:23→07:49)
[2017-03-11 05:39] LABS: BASOPHILS % 0.3 % (0.0-2.0); EOSINOPHILS # 0.3 10^3/ul (0.0-0.5); EOSINOPHILS % 5.2 % (0.0-7.0); HEMATOCRIT 31.8 % (42.0-52.0); HEMOGLOBIN 10.7 g/dl (14.0-18.0); MEAN CORPUSCULAR HEMOGLOBIN 31.4 pg (29.0-33.0); MEAN CORPUSCULAR HGB CONC 33.6 g/dl (32.0-37.0); MEAN CORPUSCULAR VOLUME 93.3 fl (82.0-101.0); MEAN PLATELET VOLUME 8.7 fl (7.4-10.4); MONOCYTE # 0.8 10^3/ul (0.3-0.9); MONOCYTES % 13.8 % (0.0-11.0); NEUTROPHILS % 63.5 % (39.0-77.0); PLATELET COUNT 291 10^3/UL (140-415); RED BLOOD COUNT 3.41 10^6/ul (4.70-6.10); RED CELL DISTRIBUTION WIDTH 13.4 % (11.5-14.5); WHITE BLOOD COUNT 5.8 10^3/ul (4.8-10.8)
[2017-03-11 06:14] LABS: CALCIUM 9.5 mg/dl (8.4-10.2); CREATININE 1.27 mg/dl (0.61-1.24); POTASSIUM 3.1 mmol/L (3.5-5.1)
[2017-03-11] MEDS: metFORMIN 500 MG TAB PO SCH ×2 (07:50→17:06)
[2017-03-11] MEDS: INSULIN ASPART [NOVOLOG] 3 ML PEN SC SCH ×4 (07:53→20:41)
[2017-03-11] MEDS: DIPHENHYDRAMINE 25 MG CAP PO PRN (07:54)
[2017-03-11] MEDS: NIFEdipine (XL) 60 MG TAB PO SCH (08:51)
[2017-03-11] MEDS: LABETALOL 200 MG TAB PO SCH ×2 (08:52→20:13)
[2017-03-11] MEDS: SPIRONOLACTONE 25 MG TAB PO SCH (08:52)
[2017-03-11] MEDS: BACLOFEN 10 MG TAB PO SCH ×3 (08:53→20:11)
[2017-03-11 10:32] VITALS: BP 127/58; RESP 20
[2017-03-11] MEDS ORDERED: POTASSIUM CHLORIDE (SR) 20 MEQ TAB PO STA ×3 (12:48→13:02)
--- NOTE | 2017-03-11 13:13 | CONS ---
Date/Time of Note Date/Time of Note DATE: 03/11/17 TIME: 13:10 Assessment/Plan Assessment/Plan Chief Complaint/Hosp Course 46-year-old gentleman visiting [facility] from [place] on vacation. He developed pain and hematuria while visiting his aunt and required hospitalization. He reports that 3 years ago he was referred to an manager sales in [place] for an asymmetry of his adrenal glands during the onset of significant hypertension. He has had issues with hypokalemia. He reports he ultimately had a needle biopsy was benign. However he also reports that he was told that selective sampling from the adrenal glands demonstrated the left adrenal gland have a level of 3 in the right adrenal gland will have a level of 750. He states that he was told that he had primary hyperaldosteronism. He initially was treated with Spironolactone with excellent control of his blood pressure. However he did not have any further follow-ups with the manager sales and ultimately his insurance changed his provider. Subsequently the new providers opted to change him off of the Spironolactone and onto new medications. Since that time he has had difficult to control blood pressure Problems: (1) Diabetes mellitus type 2 in obese Status: Chronic Comment: Doing well on simple oral medication regimen and calorie restriction. With a roughly 5-10% weight loss I expect this will have resolved nicely. He will follow-up with his primary care physician and that person's team in his home in [place] (2) Adrenal nodule Status: Chronic Comment: I believe this is primary hyperaldosteronism. I do not have access to the prior workup but if the information is as the patient is described he would actually do well to have a laparoscopic adrenalectomy which would be curative. This will be followed up by his doctors in [place] (3) Snoring Status: Chronic Comment: His snoring probably represents an undiagnosed case of obstructive sleep apnea. With the weight loss this will help but he should have formalized evaluation with his primary care team in [place] (4) Morbid obesity with BMI of 40.0-44.9, adult Status: Chronic Comment: He has been strongly counseled about the rationale and benefits of weight loss (5) Primary hyperaldosteronism Status: Chronic Comment: He is on Spironolactone for this. I will try and replete his potassium. (6) Hypertensive crisis Status: Acute Comment: He is no longer hypertensive using a combination of Spironolactone with alpha blockade Consultation Date/Type/Reason Admit Date/Time Mar 05, 2017 at 22:27 Initial Consult Date 03/07/17 Type of Consultation: Endocrinology Reason for Consultation Right adrenal nodule; hypertension with hypokalemia and history of primary hyperaldosteronism; morbid obesity; new diagnosis diabetes mellitus type 2; obstructive sleep apnea clinically; Referring Provider: HAZEL ALONZO 24 HR Interval Summary Free Text/Dictation No changes Exam/Review of Systems Vital Signs Vitals Vital Signs Date Time Temp Pulse Resp B/P Pulse Ox O2 Delivery O2 Flow Rate FiO2 03/11/17 10:32 98.2 83 20 127/58 95 Intake and Output 03/10/17 03/10/17 03/11/17 15:00 23:00 07:00 Intake Total 1080 ml 600 ml Balance 1080 ml 600 ml Results No changes in exam Result Diagram: 03/11/17 0438 03/11/17 0438 Results 24 hrs Laboratory Tests Test 03/10/17 17:17 03/10/17 20:15 03/11/17 04:38 03/11/17 07:49 Bedside Glucose 194 159 155 White Blood Count 5.8 Red Blood Count 3.41 L Hemoglobin 10.7 L Hematocrit 31.8 L Mean Corpuscular Volume 93.3 Mean Corpuscular Hemoglobin 31.4 Mean Corpuscular Hemoglobin Concent 33.6 Red Cell Distribution Width 13.4 Platelet Count 291 Mean Platelet Volume 8.7 Neutrophils % 63.5 Lymphocytes % 17.0 Monocytes % 13.8 H Eosinophils % 5.2 Basophils % 0.3 Nucleated Red Blood Cells % 0.0 Neutrophils # (Manual) 4 Lymphocytes # 1.0 Monocytes # 0.8 Eosinophils # 0.3 Basophils # 0.0 Nucleated Red Blood Cells # 0.0 Sodium Level 137 Potassium Level 3.1 L Chloride Level 99 Carbon Dioxide Level 30 Anion Gap 11 # Blood Urea Nitrogen 15 Creatinine 1.27 H Glucose Level 162 Calcium Level 9.5 Test 03/11/17 11:39 Bedside Glucose 142 Medications Medications Current Medications Ondansetron HCl (Zofran Inj) 4 mg Q6H PRN IV NAUSEA AND/OR VOMITING Last administered on 03/09/17t 17:24; Admin Dose 4 MG; Start 03/06/17 at 01:30 Diphenhydramine HCl (Benadryl) 25 mg Q6H PRN PO ITCHING Last administered on 07:54; Admin Dose 25 MG; Start 03/06/17 at 01:30 Clonidine (Catapres) 0.2 mg BID PO Last administered on 03/11/17 08:52; Admin Dose 0.2 MG; Start 03/06/17 at 09:00 Labetalol HCl (Normodyne) 200 mg BID PO Last administered on 03/11/17 08:52; Admin Dose 200 MG; Start 03/06/17 at 09:00 Baclofen (Lioresal) 10 mg TID PO Last administered on 03/11/17 12:00; Admin Dose 10 MG; Start 03/06/17 at 11:30 Miscellaneous Information 1 ea NOTE XX ; Start 03/08/17 at 09:00 Glucose (Glutose) 15 gm Q15M PRN PO DECREASED GLUCOSE; Start 03/08/17 at 09:00 Glucose (Glutose) 22.5 gm Q15M PRN PO DECREASED GLUCOSE; Start 03/08/17 at 09: 00 Dextrose (D50w Syringe) 25 ml Q15M PRN IV DECREASED GLUCOSE; Start 03/08/17 at 09:00 Dextrose (D50w Syringe) 50 ml Q15M PRN IV DECREASED GLUCOSE; Start 03/08/17 at 09:00 Glucagon (Glucagen) 1 mg Q15M PRN IM DECREASED GLUCOSE; Start 03/08/17 at 09:00 Glucose (Glutose) 15 gm Q15M PRN BUCCAL DECREASED GLUCOSE; Start 03/08/17 at 09 :00 Diagnostic Test (Pha) (Accu-Chek) 1 ea 02 XX Last administered on 03/09/17 02: 53; Admin Dose 1 EA; Start 03/09/17 at 02:00 Doxazosin Mesylate (Cardura) 4 mg HS PO Last administered on 03/10/17 21:02; Admin Dose 4 MG; Start 03/10/17 at 21:00 Spironolactone (Aldactone) 50 mg DAILY PO Last administered on 03/11/17 08:52 ; Admin Dose 50 MG; Start 03/11/17 at 09:00 Nifedipine (Procardia Xl) 60 mg DAILY PO Last administered on 03/11/17 08:51; Admin Dose 60 MG; Start 03/11/17 at 09:00 Acetaminophen/ Hydrocodone Bitart 1 tab 1 tab Q4H PRN PO pain; Start 03/11/17 at 13:00 Potassium Chloride/Dextrose (KCl/D5W) 265 ml @ 88.333 mls/ hr ONCE ONCE IVPB ; Start 03/11/17 at 13:30; Stop 03/11/17 at 16:29 LALO JOLLEY MD Mar 11, 2017 13:12
[2017-03-11] MEDS: HYDROCODONE/APAP (5/325) TAB PO PRN (13:19)
--- NOTE | 2017-03-11 13:29 | CONS ---
Date/Time of Note Date/Time of Note DATE: 03/11/17 TIME: 13:28 Assessment/Plan Assessment/Plan Chief Complaint/Hosp Course 46-year-old male with a history of hypertension who presented to the emergency department for right flank pain and elevated blood pressure. He said he has been having right flank pain and hematuria for the past 2 days for which he went to urgent care. His blood pressure was noted to be elevated and as such she was instructed to go to the ER. He denied fever, chills, nausea, vomiting. He also denied a history of kidney stone. When he presented to the ER initial blood pressure was 192/105 but has been as high as 212/138. Labs shows a creatinine of 1.76, potassium 3.4, hemoglobin 12.8. Is consistent with UTI and also was significant amount of RBCs. CT abdomen/pelvis shows no kidney or ureteral stone. No hydro-nephrosis. Noted however was 1.5 cm right adrenal nodule and 0.4 cm right pulmonary nodule. Problems: Additional Assessment/Plan 1. Acute kidney injury with anita hematuria- Differential includes ATN vs Acute pre renal azotemia vs Acute Glomerulonephritis vs Hypertnsive nephrosclerosis 2. Hyperrensive emergency 3. Hematuria,Anita 4. h/o HTN 5. Morbid obesity 6. Possible UTI/Pyelonephrits Plan: pt has preivous follow up with book packer as outpatient and had a work up done Cr imrpoved, Cr 1.37, K replaced Ok to d/c from renal point of view follow up- with his own PMD in 1-2 week after dsicharge Consultation Date/Type/Reason Admit Date/Time Mar 05, 2017 at 22:27 Initial Consult Date 03/06/17 Type of Consultation: NEPHROLOGY Referring Provider: HAZEL ALONZO 24 HR Interval Summary Free Text/Dictation k low, Cr 1.37, BP stable, afebrile Exam/Review of Systems Vital Signs Vitals Vital Signs Date Time Temp Pulse Resp B/P Pulse Ox O2 Delivery O2 Flow Rate FiO2 03/11/17 10:32 98.2 83 20 127/58 95 Intake and Output 03/10/17 03/10/17 03/11/17 15:00 23:00 07:00 Intake Total 1080 ml 600 ml Balance 1080 ml 600 ml Exam Constitutional: alert, oriented Head: atraumatic, normocephalic Eyes: EOMI, PERRL Neck: supple Respiratory: clear to auscultation, normal air movement Cardiovascular: nl pulses, regular rate and rhythm Gastrointestinal: other (Right flank tenderness), soft, tender Extremities: normal pulses Constitutional: alert Psych: no complaints Results Result Diagram: 03/11/17 0438 03/11/17 0438 Results 24 hrs Laboratory Tests Test 03/10/17 17:17 03/10/17 20:15 03/11/17 04:38 03/11/17 07:49 Bedside Glucose 194 159 155 White Blood Count 5.8 Red Blood Count 3.41 L Hemoglobin 10.7 L Hematocrit 31.8 L Mean Corpuscular Volume 93.3 Mean Corpuscular Hemoglobin 31.4 Mean Corpuscular Hemoglobin Concent 33.6 Red Cell Distribution Width 13.4 Platelet Count 291 Mean Platelet Volume 8.7 Neutrophils % 63.5 Lymphocytes % 17.0 Monocytes % 13.8 H Eosinophils % 5.2 Basophils % 0.3 Nucleated Red Blood Cells % 0.0 Neutrophils # (Manual) 4 Lymphocytes # 1.0 Monocytes # 0.8 Eosinophils # 0.3 Basophils # 0.0 Nucleated Red Blood Cells # 0.0 Sodium Level 137 Potassium Level 3.1 L Chloride Level 99 Carbon Dioxide Level 30 Anion Gap 11 # Blood Urea Nitrogen 15 Creatinine 1.27 H Glucose Level 162 Calcium Level 9.5 Test 03/11/17 11:39 Bedside Glucose 142 Medications Medications Current Medications Ondansetron HCl (Zofran Inj) 4 mg Q6H PRN IV NAUSEA AND/OR VOMITING Last administered on 03/09/17 17:24; Admin Dose 4 MG; Start 03/06/17 at 01:30 Diphenhydramine HCl (Benadryl) 25 mg Q6H PRN PO ITCHING Last administered on 07:54; Admin Dose 25 MG; Start 03/06/17 at 01:30 Clonidine (Catapres) 0.2 mg BID PO Last administered on 03/11/17 08:52; Admin Dose 0.2 MG; Start 03/06/17 at 09:00 Labetalol HCl (Normodyne) 200 mg BID PO Last administered on 03/11/17 08:52; Admin Dose 200 MG; Start 03/06/17 at 09:00 Baclofen (Lioresal) 10 mg TID PO Last administered on 03/11/17 12:00; Admin Dose 10 MG; Start 03/06/17 at 11:30 Miscellaneous Information 1 ea NOTE XX ; Start 03/08/17 at 09:00 Glucose (Glutose) 15 gm Q15M PRN PO DECREASED GLUCOSE; Start 03/08/17 at 09:00 Glucose (Glutose) 22.5 gm Q15M PRN PO DECREASED GLUCOSE; Start 03/08/17 at 09: 00 Dextrose (D50w Syringe) 25 ml Q15M PRN IV DECREASED GLUCOSE; Start 03/08/17 at 09:00 Dextrose (D50w Syringe) 50 ml Q15M PRN IV DECREASED GLUCOSE; Start 03/08/17 at 09:00 Glucagon (Glucagen) 1 mg Q15M PRN IM DECREASED GLUCOSE; Start 03/08/17 at 09:00 Glucose (Glutose) 15 gm Q15M PRN BUCCAL DECREASED GLUCOSE; Start 03/08/17 at 09 :00 Diagnostic Test (Pha) (Accu-Chek) 1 ea 02 XX Last administered on 03/09/17 02: 53; Admin Dose 1 EA; Start 03/09/17 at 02:00 Doxazosin Mesylate (Cardura) 4 mg HS PO Last administered on 03/10/17 21:02; Admin Dose 4 MG; Start 03/10/17 at 21:00 Spironolactone (Aldactone) 50 mg DAILY PO Last administered on 03/11/17 08:52 ; Admin Dose 50 MG; Start 03/11/17 at 09:00 Nifedipine (Procardia Xl) 60 mg DAILY PO Last administered on 03/11/17 08:51; Admin Dose 60 MG; Start 03/11/17 at 09:00 Acetaminophen/ Hydrocodone Bitart 1 tab 1 tab Q4H PRN PO pain Last administered on 03/11/17 13:19; Admin Dose 1 TAB; Start 03/11/17 at 13:00 Potassium Chloride/Dextrose (KCl/D5W) 265 ml @ 88.333 mls/ hr ONCE ONCE IVPB ; Start 03/11/17 at 13:30; Stop 03/11/17 at 16:29 COLIN PAREDES MD Mar 11, 2017 13:29
[2017-03-11] MEDS ORDERED: POTASSIUM CHLORIDE 30 MEQ in DEXTROSE 5% 250 ML IVPB ONE (13:30)
[2017-03-11 17:06] VITALS: BP 98/55; RESP 20
[2017-03-11 20:12] VITALS: BP 120/59; RESP 22
[2017-03-11] MEDS: DOXAZOSIN 4 MG TAB PO SCH (20:12)
[2017-03-11] MEDS: ZOLPIDEM 5 MG TAB PO PRN (21:08)
[2017-03-12] MEDS: ACCU-CHEK XX SCH (02:00)
[2017-03-12 02:54] VITALS: BP 108/56; RESP 18
[2017-03-12 08:00] VITALS: BP 124/63; RESP 20
[2017-03-12] MEDS: HYDROCODONE/APAP (5/325) TAB PO PRN (08:32)
[2017-03-12] MEDS: metFORMIN 500 MG TAB PO SCH (08:36)
[2017-03-12] MEDS: INSULIN ASPART [NOVOLOG] 3 ML PEN SC SCH (08:37)
[2017-03-12] MEDS: BACLOFEN 10 MG TAB PO SCH (08:39)
[2017-03-12] MEDS: SPIRONOLACTONE 25 MG TAB PO SCH (08:39)
[2017-03-12] MEDS: LABETALOL 200 MG TAB PO SCH (08:39)
[2017-03-12] MEDS: NIFEdipine (XL) 60 MG TAB PO SCH (08:39)
--- NOTE | 2017-03-12 09:16 | PN ---
Date/Time of Note Date/Time of Note DATE: 03/11/17 TIME: 1400 Assessment/Plan VTE Prophylaxis VTE Prophylaxis Intervention: SCD's Lines/Catheters [facility] Urinary Cath still in place: No Assessment/Plan Assessment/Plan 46 yo M with previous hx of primary hyperaldosteronism presented with R flank pain, hematuria and proteinuria. 1 right-sided flank pain with proteinuria and hematuria: Still with some right lower quadrant pain. 3+ hemoglobin found on UA. There was some bladder thickening found on CT scan as well. Appreciate renal and endocrine consults. Per renal team differential includes ATN vs Acute pre renal azotemia vs Acute Glomerulonephritis vs Hypertensive nephrosclerosis. -Continue IV fluid, follow-up 24-hour urine protein test, renal recommendations , endo rec's -Follow-up culture results -convert pain meds to PO -Monitor for now, have requested urology consult. Concern about possible need to rule out bladder cancer. advised outpatient f/u 2. Hypertensive urgency -improved now, although slightly more elevated today. 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 Patient states he is compliant with his p.o. blood pressure medicines at home. -Continue home medications, calcium channel david twice daily, Aldactone, Cardura now 3. Adrenal nodule: Per evaluation from endocrinology team, this appears to be the source of patient's primary hyperaldosteronism. He apparently was diagnosed with this 3 years ago in [place] as well and treated with spironolactone at that time, however he lost follow-up to his tire fabricator and with change of insurance, had changes made to his blood pressure medicines since then, and apparently has been off of this medicine for some time now. -Continue Aldactone, Cardura in addition to his other p.o. blood pressure medicines, monitor blood pressure Need for outpatient f/u for bladder cancer eval discussed at length with patient who voiced understanding Subjective 24 Hr Interval Summary Free Text/Dictation Pt requesting one more evening in the hospital Exam/Review of Systems Vital Signs Vitals Vital Signs Date Time Temp Pulse Resp B/P Pulse Ox O2 Delivery O2 Flow Rate FiO2 03/12/17 08:00 98.0 85 20 124/63 97 Intake and Output 03/11/17 03/11/17 03/12/17 15:00 23:00 07:00 Intake Total 917 ml 720 ml Balance 917 ml 720 ml Exam nad no mrg lungs clear abd soft no rashes Results Result Diagram: 03/11/178 03/11/17 0438 Results 24 hrs Laboratory Tests Test 03/11/17 11:39 03/11/17 17:07 03/11/17 20:10 03/12/17 08:33 Bedside Glucose 142 172 173 166 Medications Medications Current Medications Ondansetron HCl (Zofran Inj) 4 mg Q6H PRN IV NAUSEA AND/OR VOMITING Last administered on 03/09/17 17:24; Admin Dose 4 MG; Start 03/06/17 at 01:30 Diphenhydramine HCl (Benadryl) 25 mg Q6H PRN PO ITCHING Last administered on 07:54; Admin Dose 25 MG; Start 03/06/17 at 01:30 Clonidine (Catapres) 0.2 mg BID PO Last administered on 03/12/17 08:39; Admin Dose 0.2 MG; Start 03/06/17 at 09:00 Labetalol HCl (Normodyne) 200 mg BID PO Last administered on 03/12/17 08:39; Admin Dose 200 MG; Start 03/06/17 at 09:00 Baclofen (Lioresal) 10 mg TID PO Last administered on 03/12/17 08:39; Admin Dose 10 MG; Start 03/06/17 at 11:30 Miscellaneous Information 1 ea NOTE XX ; Start 03/08/17 at 09:00 Glucose (Glutose) 15 gm Q15M PRN PO DECREASED GLUCOSE; Start 03/08/17 at 09:00 Glucose (Glutose) 22.5 gm Q15M PRN PO DECREASED GLUCOSE; Start 03/08/17 at 09: 00 Dextrose (D50w Syringe) 25 ml Q15M PRN IV DECREASED GLUCOSE; Start 03/08/17 at 09:00 Dextrose (D50w Syringe) 50 ml Q15M PRN IV DECREASED GLUCOSE; Start 03/08/17 at 09:00 Glucagon (Glucagen) 1 mg Q15M PRN IM DECREASED GLUCOSE; Start 03/08/17 at 09:00 Glucose (Glutose) 15 gm Q15M PRN BUCCAL DECREASED GLUCOSE; Start 03/08/17 at 09 :00 Diagnostic Test (Pha) (Accu-Chek) 1 ea 02 XX Last administered on 03/09/17 02: 53; Admin Dose 1 EA; Start 03/09/17 at 02:00 Doxazosin Mesylate (Cardura) 4 mg HS PO Last administered on 03/11/17 20:12; Admin Dose 4 MG; Start 03/10/17 at 21:00 Spironolactone (Aldactone) 50 mg DAILY PO Last administered on 03/12/17 08:39 ; Admin Dose 50 MG; Start 03/11/17 at 09:00 Nifedipine (Procardia Xl) 60 mg DAILY PO Last administered on 03/12/17 08:39; Admin Dose 60 MG; Start 03/11/17 at 09:00 Acetaminophen/ Hydrocodone Bitart ([place] (5/325)) 1 tab Q4H PRN PO pain Last administered on 03/12/17 08:32; Admin Dose 1 TAB; Start 03/11/17 at 13:00 JAGJIT CRAWFORD MD Mar 12, 2017 09:16
[2017-03-12] MEDS ORDERED: NIFE60TA7 PO (09:19)
[2017-03-12] MEDS ORDERED: SPIR25TA PO (09:19)
[2017-03-12] MEDS ORDERED: METF500T PO (09:19)
[2017-03-12] MEDS ORDERED: DOXA4TAB2 PO (09:19)
[2017-03-12] MEDS ORDERED: ACET-2047 PO (09:47)
--- NOTE | 2017-03-12 09:47 | PDOCDIS ---
Discharge Instructions CONDITION Patient Condition: Stable HOME CARE INSTRUCTIONS: Special Diet: carb controlled FOLLOW UP/APPOINTMENTS Follow-up Plan As we discussed you need to see a urologist within the next 2-4 weeks to evaluate you for the prospect of bladder cancer. 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 As we discussed, if you notice gross blood in your urine, or are unable to urinate for >8 hours please go to the nearest emergency room JAGJIT CRAWFORD MD Mar 12, 2017 09:47
--- NOTE | 2017-03-12 09:52 | DS ---
Date/Time of Note Date/Time of Note DATE: 03/12/17 TIME: 09:48 Discharge Summary Admission/Discharge Info Admit Date/Time Mar 05, 2017 at 22:27 Discharge Date/Time Discharge Diagnosis hypertension 2/2 primary hyperaldosteronism, acute kidney injury, diabetes, adrenal nodule, lung nodule Patient Condition: Stable Consults endocrinology, nephrology Procedures 8.15 CT AP IMPRESSION: Negative for urinary calculi or hydronephrosis. Cause for right flank pain is not evident. Nonspecific bladder wall thickening. This could be due to bladder wall hypertrophy or incomplete distension. Correlate with urinalysis to rule out cystitis. 1.5 cm nodule right adrenal gland. In the absence of a known primary neoplasm, this is statistically benign. Recommend correlation with endocrine studies to evaluate for a functioning adenoma or pheochromocytoma and consider follow-up adrenal gland CT in 12 months or correlation with previous imaging. 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 0.4 cm right pulmonary nodule. In the absence of risk factors, no further imaging is required per 2017 Fleischner Society guidelines. In a high risk patient, follow-up low-dose chest CT at 12 months is optional. Alternatively, recommend correlation with previous imaging. Hx of Present Illness This is a 46-year-old male with a history of hypertension who presented to the emergency department for right flank pain and elevated blood pressure. He said he has been having right flank pain and hematuria for the past 2 days for which he went to urgent care. His blood pressure was noted to be elevated and as such she was instructed to go to the ER. He denied fever, chills, nausea, vomiting. He also denied a history of kidney stone. When he presented to the ER initial blood pressure was 192/105 but has been as high as 212/138. Labs shows a creatinine of 1.76, potassium 3.4, hemoglobin 12.8. Is consistent with UTI and also was significant amount of RBCs. CT abdomen/pelvis shows no kidney or ureteral stone. No hydro-nephrosis. Noted however was 1.5 cm right adrenal nodule and 0.4 cm right pulmonary nodule. . Hospital Course Pt presented with R flank pain, hematuria, elevated BP. CT did not show kidney stone, showed 1.5 cm R adrenal nodule. Re adrenal nodule, pt seen by endo. Given hypertension and low K, etio deemed to most likely be primary hyperaldosteronism, a condition with which pt had previously been diagnosed. Pt started on aldactone, nifedipine and cardura and BP improved. Finding of bladder wall thickening dw pt and outpatient follow up repeatedly advised for bladder cancer eval. Lung nodule discussed with patient, he was advised to f/u with PCP to discuss if f/u imaging is indicated. Pt also diagnosed with diabetes, a1c 7.5. He was started on metformin and given a glucometer and will f/u with his PCP. Pt should get bloodwork within 2 weeks with his PCP. Home Meds Active Scripts Metformin* (Glucophage*) 850 Mg Tablet, 850 MG PO WITH BREAKFAST DINNE for 30 Days, #60 TAB Prov:JAGJIT CRAWFORD MD 03/12/17 Acetaminophen* (Acetaminophen*) 650 Mg Tablet, 650 MG PO Q6H Y for PAIN AND OR ELEVATED TEMP for 7 Days, #30 TAB Prov:JAGJIT CRAWFORD MD 03/12/17 Spironolactone* (Aldactone*) 25 Mg Tablet, 50 MG PO DAILY for 30 Days, #30 TAB Prov:JAGJIT CRAWFORD MD 03/12/17 Nifedipine (Afeditab CR) 60 Mg Tablet.sa, 60 MG PO DAILY for 30 Days, #30 Prov:JAGJIT CRAWFORD MD 03/12/17 Doxazosin Mesylate* (Cardura*) 4 Mg Tablet, 4 MG PO HS for 30 Days, #30 TAB Prov:JAGJIT CRAWFORD MD 03/12/17 Reported Medications Zolpidem Tartrate* (Ambien*) 10 Mg Tablet, 10 MG PO QHS Y for INSOMNIA, TAB 03/05/17 Labetalol Hcl* (Labetalol Hcl*) 200 Mg Tablet, 200 MG PO BID, TAB 03/05/17 Clonidine Hcl* (Clonidine Hcl*) 0.2 Mg Tablet, 0.2 MG PO BID, TAB 03/05/17 Follow-up Plan PCP within 2 weeks for bladder cancer eval nephrology and endo within 2 weeks Primary Care Provider Care Physician No Primary Time spent on discharge: > 30 minutes Pending Labs Laboratory Tests Test 03/11/17 11:39 03/11/17 17:07 03/11/17 20:10 03/12/17 08:33 Bedside Glucose 142mg/dL (70-220) 172mg/dL (70-220) 173mg/dL (70-220) 166mg/dL (70-220) JAGJIT CRAWFORD MD Mar 12, 2017 09:52 Test 03/11/17 11:39 03/11/17 17:07 03/11/17 20:10 03/12/17 08:33 Bedside Glucose 142mg/dL (70-220) 172mg/dL (70-220) 173mg/dL (70-220) 166mg/dL (70-220) JAGJIT CRAWFORD MD Mar 12, 2017 09:52
[2017-03-12] MEDS ORDERED: METF-480 PO (09:53)
--- NOTE | 2017-03-12 11:34 | CONS ---
Date/Time of Note Date/Time of Note DATE: 03/12/17 TIME: 11:33 Assessment/Plan Assessment/Plan Chief Complaint/Hosp Course 46-year-old male with a history of hypertension who presented to the emergency department for right flank pain and elevated blood pressure. He said he has been having right flank pain and hematuria for the past 2 days for which he went to urgent care. His blood pressure was noted to be elevated and as such she was instructed to go to the ER. He denied fever, chills, nausea, vomiting. He also denied a history of kidney stone. When he presented to the ER initial blood pressure was 192/105 but has been as high as 212/138. Labs shows a creatinine of 1.76, potassium 3.4, hemoglobin 12.8. Is consistent with UTI and also was significant amount of RBCs. CT abdomen/pelvis shows no kidney or ureteral stone. No hydro-nephrosis. Noted however was 1.5 cm right adrenal nodule and 0.4 cm right pulmonary nodule. Problems: Additional Assessment/Plan 1. Acute kidney injury with anita hematuria- Differential includes ATN vs Acute pre renal azotemia vs Acute Glomerulonephritis vs Hypertnsive nephrosclerosis 2. Hyperrensive emergency 3. Hematuria,Anita 4. h/o HTN 5. Morbid obesity 6. Possible UTI/Pyelonephrits Plan: pt has preivous follow up with [facility] as outpatient and had a work up done Cr imrpoved, Cr 1.27, K replaced Ok to d/c from renal point of view follow up- with his own PMD in 1-2 week after discharge Consultation Date/Type/Reason Admit Date/Time Mar 05, 2017 at 22:27 Initial Consult Date 03/06/17 Type of Consultation: NEPHROLOGY Referring Provider: HAZEL ALONZO 24 HR Interval Summary Free Text/Dictation NO LABS TODAY, cR WAS BETTER YESTERDAY Exam/Review of Systems Vital Signs Vitals Vital Signs Date Time Temp Pulse Resp B/P Pulse Ox O2 Delivery O2 Flow Rate FiO2 03/12/17 08:00 98.0 85 20 124/63 97 Intake and Output 03/11/17 03/11/17 03/12/17 15:00 23:00 07:00 Intake Total 917 ml 720 ml Balance 917 ml 720 ml Exam Constitutional: alert, oriented Head: atraumatic, normocephalic Eyes: EOMI, PERRL Neck: supple Respiratory: clear to auscultation, normal air movement Cardiovascular: nl pulses, regular rate and rhythm Gastrointestinal: other (Right flank tenderness), soft, tender Extremities: normal pulses Constitutional: alert Psych: no complaints Results Result Diagram: 03/11/17 0438 03/11/17 0438 Results 24 hrs Laboratory Tests Test 03/11/17 11:39 03/11/17 17:07 03/11/17 20:10 03/12/17 08:33 Bedside Glucose 142 172 173 166 Medications Medications Current Medications Ondansetron HCl (Zofran Inj) 4 mg Q6H PRN IV NAUSEA AND/OR VOMITING Last administered on 03/09/17 17:24; Admin Dose 4 MG; Start 03/06/17 at 01:30 Diphenhydramine HCl (Benadryl) 25 mg Q6H PRN PO ITCHING Last administered on 07:54; Admin Dose 25 MG; Start 03/06/17 at 01:30 Clonidine (Catapres) 0.2 mg BID PO Last administered on 03/12/17 08:39; Admin Dose 0.2 MG; Start 03/06/17 at 09:00 Labetalol HCl (Normodyne) 200 mg BID PO Last administered on 03/12/17 08:39; Admin Dose 200 MG; Start 03/06/17 at 09:00 Baclofen (Lioresal) 10 mg TID PO Last administered on 03/12/17 08:39; Admin Dose 10 MG; Start 03/06/17 at 11:30 Miscellaneous Information 1 ea NOTE XX ; Start 03/08/17 at 09:00 Glucose (Glutose) 15 gm Q15M PRN PO DECREASED GLUCOSE; Start 03/08/17 at 09:00 Glucose (Glutose) 22.5 gm Q15M PRN PO DECREASED GLUCOSE; Start 03/08/17 at 09: 00 Dextrose (D50w Syringe) 25 ml Q15M PRN IV DECREASED GLUCOSE; Start 03/08/17 at 09:00 Dextrose (D50w Syringe) 50 ml Q15M PRN IV DECREASED GLUCOSE; Start 03/08/17 at 09:00 Glucagon (Glucagen) 1 mg Q15M PRN IM DECREASED GLUCOSE; Start 03/08/17 at 09:00 Glucose (Glutose) 15 gm Q15M PRN BUCCAL DECREASED GLUCOSE; Start 03/08/17 at 09 :00 Diagnostic Test (Pha) (Accu-Chek) 1 ea 02 XX Last administered on 03/09/17 02: 53; Admin Dose 1 EA; Start 03/09/17 at 02:00 Doxazosin Mesylate (Cardura) 4 mg HS PO Last administered on 03/11/17 20:12; Admin Dose 4 MG; Start 03/10/17 at 21:00 Spironolactone (Aldactone) 50 mg DAILY PO Last administered on 03/12/17 08:39 ; Admin Dose 50 MG; Start 03/11/17 at 09:00 Nifedipine (Procardia Xl) 60 mg DAILY PO Last administered on 03/12/17 08:39; Admin Dose 60 MG; Start 03/11/17 at 09:00 Acetaminophen/ Hydrocodone Bitart ([place] (5/325)) 1 tab Q4H PRN PO pain Last administered on 03/12/17 08:32; Admin Dose 1 TAB; Start 03/11/17 at 13:00 COLIN PAREDES MD Mar 12, 2017 11:34
--- NOTE | 2017-03-12 11:39 | CONS ---
Date/Time of Note Date/Time of Note DATE: 03/12/17 TIME: 11:37 Assessment/Plan Assessment/Plan Chief Complaint/Hosp Course 46-year-old gentleman presents to [facility] emergency room with severe right flank pain. Patient diagnosed with right pyelonephritis, renal colic and nephrolithiasis. Patient states that the first time it happened to him describes it as excruciating pain associated with hematuria, spasmy type discomfort. Rates his pain as 10/10 now it is 7/10 but continues to have spasm that peaks and troughs. Denies nausea vomiting chest pain shortness of breath pruritus constipation, and his past medical history of alcohol or drug use no history of addiction disorders, patient looks professional and well-kept personal hygiene is good. Patient was not taking any pain control medications at home he was given Toradol emergency room and had a reaction with hives and bronchospasm. The pain has interfered with his physical functioning social relations mood and sleeping patterns, he has not been negotiating for higher dose pain control medication nor does he insist on certain pain control medication. Problems: Additional Assessment/Plan Postdated progress note for March 11 Long discussion with patient concerning pain control medications. He expressed to me that he wants to have 100% alleviation of his pain. I told him with this diagnosis he would not have 100% but we will do we can otherwise he would have to be sedated heavily. Pain location and character the pain still located in the same area, visually patient appears to be more comfortable at this time. Suggest no change in his current pain control Consultation Date/Type/Reason Admit Date/Time Mar 05, 2017 at 22:27 Initial Consult Date 03/07/17 Type of Consultation: Pain management Referring Provider: HAZEL ALONZO Exam/Review of Systems Vital Signs Vitals Vital Signs Date Time Temp Pulse Resp B/P Pulse Ox O2 Delivery O2 Flow Rate FiO2 03/12/17 08:00 98.0 85 20 124/63 97 Intake and Output 03/11/17 03/11/17 03/12/17 15:00 23:00 07:00 Intake Total 917 ml 720 ml Balance 917 ml 720 ml Results Result Diagram: 03/11/17 0438 03/11/17 0438 Results 24 hrs Laboratory Tests Test 03/11/17 11:39 03/11/17 17:07 03/11/17 20:10 03/12/17 08:33 Bedside Glucose 142 172 173 166 Medications Medications Current Medications Ondansetron HCl (Zofran Inj) 4 mg Q6H PRN IV NAUSEA AND/OR VOMITING Last administered on 03/09/17 17:24; Admin Dose 4 MG; Start 03/06/17 at 01:30 Diphenhydramine HCl (Benadryl) 25 mg Q6H PRN PO ITCHING Last administered on 07:54; Admin Dose 25 MG; Start 03/06/17 at 01:30 Clonidine (Catapres) 0.2 mg BID PO Last administered on 03/12/17 08:39; Admin Dose 0.2 MG; Start 03/06/17 at 09:00 Labetalol HCl (Normodyne) 200 mg BID PO Last administered on 03/12/17 08:39; Admin Dose 200 MG; Start 03/06/17 at 09:00 Baclofen (Lioresal) 10 mg TID PO Last administered on 03/12/17 08:39; Admin Dose 10 MG; Start 03/06/17 at 11:30 Miscellaneous Information 1 ea NOTE XX ; Start 03/08/17 at 09:00 Glucose (Glutose) 15 gm Q15M PRN PO DECREASED GLUCOSE; Start 03/08/17 at 09:00 Glucose (Glutose) 22.5 gm Q15M PRN PO DECREASED GLUCOSE; Start 03/08/17 at 09: 00 Dextrose (D50w Syringe) 25 ml Q15M PRN IV DECREASED GLUCOSE; Start 03/08/17 at 09:00 Dextrose (D50w Syringe) 50 ml Q15M PRN IV DECREASED GLUCOSE; Start 03/08/17 at 09:00 Glucagon (Glucagen) 1 mg Q15M PRN IM DECREASED GLUCOSE; Start 03/08/17 at 09:00 Glucose (Glutose) 15 gm Q15M PRN BUCCAL DECREASED GLUCOSE; Start 03/08/17 at 09 :00 Diagnostic Test (Pha) (Accu-Chek) 1 ea 02 XX Last administered on 03/09/17 02: 53; Admin Dose 1 EA; Start 03/09/17 at 02:00 Doxazosin Mesylate (Cardura) 4 mg HS PO Last administered on 03/11/17 20:12; Admin Dose 4 MG; Start 03/10/17 at 21:00 Spironolactone (Aldactone) 50 mg DAILY PO Last administered on 03/12/17 08:39 ; Admin Dose 50 MG; Start 03/11/17 at 09:00 Nifedipine (Procardia Xl) 60 mg DAILY PO Last administered on 03/12/17 08:39; Admin Dose 60 MG; Start 03/11/17 at 09:00 Acetaminophen/ Hydrocodone Bitart ([place] (5/325)) 1 tab Q4H PRN PO pain Last administered on 03/12/17 08:32; Admin Dose 1 TAB; Start 03/11/17 at 13:00 TIFFANY JANE Mar 12, 2017 11:39
--- NOTE | 2017-03-12 11:43 | CONS ---
Date/Time of Note Date/Time of Note DATE: 03/12/17 TIME: 11:42 Assessment/Plan Assessment/Plan Chief Complaint/Hosp Course 46-year-old gentleman presents to [facility] emergency room with severe right flank pain. Patient diagnosed with right pyelonephritis, renal colic and nephrolithiasis. Patient states that the first time it happened to him describes it as excruciating pain associated with hematuria, spasmy type discomfort. Rates his pain as 10/10 now it is 7/10 but continues to have spasm that peaks and troughs. Denies nausea vomiting chest pain shortness of breath pruritus constipation, and his past medical history of alcohol or drug use no history of addiction disorders, patient looks professional and well-kept personal hygiene is good. Patient was not taking any pain control medications at home he was given Toradol emergency room and had a reaction with hives and bronchospasm. The pain has interfered with his physical functioning social relations mood and sleeping patterns, he has not been negotiating for higher dose pain control medication nor does he insist on certain pain control medication. Problems: Additional Assessment/Plan More comfortable today discharge soon suggest no opioids other than tramadol. Consultation Date/Type/Reason Admit Date/Time Mar 05, 2017 at 22:27 Initial Consult Date 03/07/17 Type of Consultation: Pain management Referring Provider: HAZEL ALONZO Exam/Review of Systems Vital Signs Vitals Vital Signs Date Time Temp Pulse Resp B/P Pulse Ox O2 Delivery O2 Flow Rate FiO2 03/12/17 08:00 98.0 85 20 124/63 97 Intake and Output 03/11/17 03/11/17 03/12/17 15:00 23:00 07:00 Intake Total 917 ml 720 ml Balance 917 ml 720 ml Results Result Diagram: 03/11/17 0438 03/11/17 0438 Results 24 hrs Laboratory Tests Test 03/11/17 17:07 03/11/17 20:10 03/12/17 08:33 Bedside Glucose 172 173 166 Medications Medications Current Medications Ondansetron HCl (Zofran Inj) 4 mg Q6H PRN IV NAUSEA AND/OR VOMITING Last administered on 03/09/17t 17:24; Admin Dose 4 MG; Start 03/06/17 at 01:30 Diphenhydramine HCl (Benadryl) 25 mg Q6H PRN PO ITCHING Last administered on 07:54; Admin Dose 25 MG; Start 03/06/17 at 01:30 Clonidine (Catapres) 0.2 mg BID PO Last administered on 03/12/17 08:39; Admin Dose 0.2 MG; Start 03/06/17 at 09:00 Labetalol HCl (Normodyne) 200 mg BID PO Last administered on 03/12/17 08:39; Admin Dose 200 MG; Start 03/06/17 at 09:00 Baclofen (Lioresal) 10 mg TID PO Last administered on 03/12/17 08:39; Admin Dose 10 MG; Start 03/06/17 at 11:30 Miscellaneous Information 1 ea NOTE XX ; Start 03/08/17 at 09:00 Glucose (Glutose) 15 gm Q15M PRN PO DECREASED GLUCOSE; Start 03/08/17 at 09:00 Glucose (Glutose) 22.5 gm Q15M PRN PO DECREASED GLUCOSE; Start 03/08/17 at 09: 00 Dextrose (D50w Syringe) 25 ml Q15M PRN IV DECREASED GLUCOSE; Start 03/08/17 at 09:00 Dextrose (D50w Syringe) 50 ml Q15M PRN IV DECREASED GLUCOSE; Start 03/08/17 at 09:00 Glucagon (Glucagen) 1 mg Q15M PRN IM DECREASED GLUCOSE; Start 03/08/17 at 09:00 Glucose (Glutose) 15 gm Q15M PRN BUCCAL DECREASED GLUCOSE; Start 03/08/17 at 09 :00 Diagnostic Test (Pha) (Accu-Chek) 1 ea 02 XX Last administered on 03/09/17 02: 53; Admin Dose 1 EA; Start 03/09/17 at 02:00 Doxazosin Mesylate (Cardura) 4 mg HS PO Last administered on 03/11/17 20:12; Admin Dose 4 MG; Start 03/10/17 at 21:00 Spironolactone (Aldactone) 50 mg DAILY PO Last administered on 03/12/17 08:39 ; Admin Dose 50 MG; Start 03/11/17 at 09:00 Nifedipine (Procardia Xl) 60 mg DAILY PO Last administered on 03/12/17 08:39; Admin Dose 60 MG; Start 8/21/17 at 09:00 Acetaminophen/ Hydrocodone Bitart ([place] (5/325)) 1 tab Q4H PRN PO pain Last administered on 03/12/17t 08:32; Admin Dose 1 TAB; Start 03/11/17 at 13:00 TIFFANY JANE Mar 12, 2017 11:43
== END 2017-03-12 11:20 | disposition home or self-care (01) | DRG 644 ==
LOC: E/R 18:13 → TEL 22:27 → PP2 03-09 07:39
PROVIDERS: ADMIT Internal Medicine; ATTEND Internal Medicine
DX: E26.09 Other primary hyperaldosteronism (principal); I16.1 Hypertensive emergency; N17.9 Acute kidney failure, unspecified; Z68.41 Body mass index [BMI] 40.0-44.9, adult; I10 Essential (primary) hypertension; E87.6 Hypokalemia; Z87.442 Personal history of urinary calculi; E27.9 Disorder of adrenal gland, unspecified; E66.01 Morbid (severe) obesity due to excess calories; R31.0 Gross hematuria; E11.9 Type 2 diabetes mellitus without complications; R80.9 Proteinuria, unspecified; R91.1 Solitary pulmonary nodule; R10.9 Unspecified abdominal pain; I16.0 Hypertensive urgency; R06.83 Snoring
CPT/HCPCS: 36415; 74176; 76775; 80048; 80053; 80307; 81001; 81003; 82088; 82533; 82550; 82570; 82962; 83036; 83690; 83735; 83835; 84100; 84156; 84244; 84300; 84484; 84560; 85025; 85651; 86021; 86038; 86140; 86430; 86703; 86704; 86709; 86803; 87086; 87340; 89190; 93005; 96374; 96375; 96376; J0360; J0692; J0696; J1170; J1200; J1644; J1815; J1956; J2270; J2405; J3010; J3370; J7030; J7040; J7050; J7070